=== PATIENT | male | born 1955 | race Native Hawaiian/Other Pacific Islander ===

== ENCOUNTER 2016-08-13 20:04 | Inpatient (IN) | payer BC ==
[2016-08-13] MEDS: MORPHINE SULFATE 2 MG/ML SYRINGE IVP ONE ×2 (20:25→20:36)
[2016-08-13] MEDS ORDERED: ONDANSETRON 4 MG/2 ML VIAL IVP STA (20:26)
[2016-08-13] MEDS ORDERED: ASPIRIN 81 MG CHEW PO STA (20:26)
[2016-08-13] MEDS ORDERED: SODIUM CHLORIDE 0.9% 1,000 ML IV STA (20:27)
[2016-08-13] MEDS ORDERED: ATORVASTATIN 80 MG TAB PO STA (20:27)
[2016-08-13] MEDS: SODIUM CHLORIDE 0.9% 1,000 ML IV STA ×2 (20:28→22:55)
--- NOTE | 2016-08-13 20:32 | ED ---
Chest Pain HPI - General Chief Complaint: Chest Pain Stated Complaint: Chest pain Time Seen by Provider: 08/13/16 20:21 Source: patient Mode of arrival: ambulatory Limitations: no limitations - History of Present Illness Initial Comments: Examined with a chest pain, chest pain started about 45 minutes ago and chest pain he had described as an 8 8/10 or so short winded, nausea no vomiting some cold sweats. He does have a history of diabetes. Denies any headaches no migraines no abdominal pain no frequency urgency dysuria - Related Data Home Medications Medication Instructions Recorded Confirmed No Known Home Medications [No 10/18/14 10/18/14 Known Home Medications] Allergies Allergy/AdvReac Type Severity Reaction Status Date / Time No Known Allergies Allergy Verified 10/18/14 21:33 Review of Systems ROS Statement: Those systems with pertinent positive or pertinent negative responses have been documented in the HPI. ROS Other: All systems not noted in ROS Statement are negative. EKG Findings - EKG Comments: EKG Findings:: EKG is consistent with a STEMI and inferior inferior and the lateral leads, I do not have any old EKG to compare with him I suspect Past Medical History Past Medical History: Diabetes Mellitus History of Any Multi-Drug Resistant Organisms: None Reported Past Surgical History: No Surgical Hx Reported Past Psychological History: No Psychological Hx Reported Smoking Status: Never smoker Past Alcohol Use History: None Reported Past Drug Use History: Marijuana General Exam - General Exam Comments Initial Comments: General: The patient is awake and alert, in no distress, and does not appear acutely ill. His GCS s 15 Skin: Skin is warm and dry and no rashes or lesions are noted. Eye: Pupils are equal, round and reactive to light, extra-ocular movements are intact; there is normal conjunctiva bilaterally. Ears, nose, mouth and throat: There are moist mucous membranes and no oral lesions. Neck: The neck is supple, there is no tenderness or JVD. Cardiovascular: There is a regular rate and rhythm. No murmur, rub or gallop is appreciated. Respiratory: To auscultation bilateral, no wheezing no rhonchi no distress respiratory [place] cast[place] noticed Gastrointestinal: Soft, non-distended, non-tender abdomen without masses or organomegaly noted. There is no rebound or guarding present. Bowel sounds are unremarkable. Back: There is no tenderness to palpation in the midline. There is no obvious deformity. Musculoskeletal: Normal ROM, no tenderness, There is no pedal edema. There is no calf tenderness or swelling. No cords were appreciated. Neurological: CN II-XII intact, Cranial nerves III through XII are intact. There are no obvious motor or sensory deficits. Coordination appears grossly intact. Speech is normal. Psychiatric: Cooperative, appropriate mood & affect, normal judgment. Limitations: no limitations Course Vital Signs 08/13/16 08/13/16 08/13/16 20:13 20:15 20:43 Pulse Rate 80 62 81 Respiratory 18 16 16 Rate Blood Pressure 194/88 204/87 183/83 O2 Sat by Pulse 99 99 99 Oximetry 08/13/16 08/13/16 20:49 20:54 Pulse Rate 80 78 Respiratory 16 16 Rate Blood Pressure 201/86 161/76 O2 Sat by Pulse 100 100 Oximetry EKG was reviewed, it has normal sinus rhythm ventricular rate is 80 SC interval is 126 QRS duration is 108 QT/QTc is 42/42, noticed ST elevation in lead 2 and lead 3 and aVF and then numb ST elevation in lead V5 and V6 Second EKG confirms a STEMI and numb all lead to 3 and aVF and V5 and V6 normal sinus rhythm heart rate is 64 SC interval is 112 QRS duration is 108 QT/QTc is 414/453 Critical Care Time Total Critical Care Time: 45 Critical Care Time: Doesn't have a chest pain started about on a half ago and EKG confirmed a STEMI has a lot of risk factors considering his age and the diabetes doctor staff was contacted to staff advised to do the aspirin and Lipitor his blood pressure was quite high was greater than 200 and 1. labetalol 20 mg given morphine was titrated his oxygen therapy done as well patient was sent to medical lab specialist in a stable condition at 8:59 PM Disposition Clinical Impression: STEMI (ST elevation myocardial infarction) Disposition: ADMITTED IP TO THIS HOSP Referrals: Fransisca Salazar MD [Primary Care Provider] - 1-2 days
[2016-08-13 20:34] LABS: Glucose,Whole Blood 376 mg/dL (75-99)
[2016-08-13 20:36] LABS: Basophils % (A) 1 %; CH 30.5; CHCM 33.6; Eosinophils # (A) 0.1 k/uL (0-0.7); Eosinophils % (A) 2 %; HCT 43.7 % (39.0-53.0); HDW 2.59; HGB 14.5 gm/dL (13.0-17.5); Luc # (Auto) 0.09; Luc % (Auto) 2; Lymphocytes # (A) 1.6 k/uL (1.0-4.8); Lymphocytes % (A) 27 %; MCH 30.3 pg (25.0-35.0); MCHC 33.2 g/dL (31.0-37.0); MCV 91.2 fL (80.0-100.0); Mean Platelet Volume 7.1; Monocytes # (A) 0.4 k/uL (0-1.0); Monocytes % (A) 6 %; Neutrophils # (A) 3.6 k/uL (1.3-7.7); Neutrophils % (A) 63 %; RBC 4.79 m/uL (4.30-5.90); WBC 5.8 k/uL (3.8-10.6); WBC (Perox) 5.78
[2016-08-13] MEDS ORDERED: MORPHINE SULFATE 2 MG/ML SYRINGE IVP ONE (20:36)
[2016-08-13] MEDS ORDERED: LABETALOL SYRINGE 5 MG/ML IVP STA (20:40)
[2016-08-13 20:50] LABS: Partial Thromboplastin Time 24.5 sec (22.0-30.0); Prothrombin Time 10.3 sec (9.0-12.0)
[2016-08-13] MEDS ORDERED: LIDOCAINE 2% INJ 20 MG/ML (20 ML MDV) ONE (20:56)
[2016-08-13] MEDS ORDERED: IV FLUID CONTINUATION 825 ML IV ONE (20:57)
[2016-08-13] MEDS ORDERED: MORPHINE SULFATE 2 MG/ML SYRINGE IV PRN (20:58)
[2016-08-13] MEDS ORDERED: NALOXONE 0.4 MG/ML 1 ML VIAL IV PRN (20:58)
[2016-08-13] MEDS ORDERED: ACETAMINOPHEN TAB 325 MG TAB PO PRN (20:58)
[2016-08-13] MEDS ORDERED: diphenhydrAMINE 50 MG/ML 1 ML VIAL IVP ONE (21:06)
[2016-08-13 21:07] LABS: ALT 43 U/L (21-72); AST 39 U/L (17-59); Alkaline Phosphatase 93 U/L (38-126); Anion Gap 13 mmol/L; Blood Urea Nitrogen 18 mg/dL (9-20); Calcium 9.2 mg/dL (8.4-10.2); Carbon Dioxide 22 mmol/L (22-30); Chloride 107 mmol/L (98-107); Glucose 420 mg/dL (74-99); Magnesium 1.9 mg/dL (1.6-2.3); Non-African American GFR(MDRD) >60 (>60 ml/min/1.73 sqM); Potassium 4.2 mmol/L (3.5-5.1); Sodium 142 mmol/L (137-145); Total Bilirubin 0.4 mg/dL (0.2-1.3)
[2016-08-13] MEDS ORDERED: VERAPAMIL 2.5 MG/ML 2 ML AMP ONE (21:07)
[2016-08-13] MEDS ORDERED: SODIUM CHLORIDE 0.9% (PF) 10 ML VIAL ONE (21:07)
[2016-08-13] MEDS: MIDAZOLAM 2 MG/2 ML VIAL IV ONE ×2 (21:08→21:33)
[2016-08-13] MEDS ORDERED: diphenhydrAMINE 50 MG/ML 1 ML VIAL ONE (21:09)
[2016-08-13] MEDS ORDERED: MIDAZOLAM 2 MG/2 ML VIAL ONE (21:10)
[2016-08-13] MEDS ORDERED: LIDOCAINE 2% INJ 20 MG/ML SQ ONE (21:12)
[2016-08-13] MEDS: VERAPAMIL SYRINGE (5 MG/10 ML) INTRAARTER ONE ×2 (21:14→22:05)
[2016-08-13] MEDS: niCARdipine Syringe (1,000 mcg/10 mL) INTRACORON ONE ×2 (21:17→21:42)
[2016-08-13] MEDS ORDERED: BIVALIRUDIN BOLUS 250 MG/50 ML IV ONE (21:17)
[2016-08-13] MEDS ORDERED: BIVALIRUDIN 250 MG in SODIUM CHLORIDE 0.9% 50 ML IV ONE (21:17)
[2016-08-13 21:24] LABS: Creatine Kinase MB 5.3 ng/mL (0.0-2.4); Troponin I 3.26 ng/mL (0.000-0.034)
[2016-08-13] MEDS: HYDROmorphone 2 MG/ML 1 ML SYRINGE IV ONE ×2 (21:25→21:40)
[2016-08-13] MEDS: NITROGLYCERIN 1000MCG/10ML SYRINGE INTRAARTER ONE ×3 (21:27→21:56)
[2016-08-13] MEDS ORDERED: HYDROmorphone 2 MG/ML 1 ML SYRINGE ONE (21:27)
[2016-08-13] MEDS ORDERED: PRASUGREL 10 MG TAB ONE (21:34)
[2016-08-13] MEDS ORDERED: PRASUGREL 10 MG TAB PO ONE (21:42)
[2016-08-13] MEDS ORDERED: hydrALAZINE HCL 20 MG/ML 1 ML VIAL IV ONE (21:48)
[2016-08-13] MEDS ORDERED: hydrALAZINE HCL 20 MG/ML 1 ML VIAL ONE (21:48)
[2016-08-13] MEDS ORDERED: IOHEXOL 350 MG/ML 100 ML BOTTLE INJ ONE (22:06)
[2016-08-13] MEDS ORDERED: MAG HYDROX/AL HYDROX/SIMETH 30 ML CUP PO PRN (22:16)
[2016-08-13] MEDS ORDERED: RX INFO: IV CONTRAST WAS GIVEN 1 EACH MISC MISCELLANE PRN (22:16)
[2016-08-13] MEDS ORDERED: ZOLPIDEM 5 MG TAB PO PRN (22:16)
[2016-08-13] MEDS ORDERED: NITROGLYCERIN SL TABS 0.4 MG TAB SUBLINGUAL PRN (22:16)
--- NOTE | 2016-08-13 22:27 | P.CRDCN ---
History of Present Illness Consult date: 08/13/16 Chief complaint: Chest discomfort History of present illness: This is a pleasant 60-year-old gentleman with a past medical history significant for diabetes, hypertension, dyslipidemia, presented to the emergency room complaining of chest discomfort. The patient has been experiencing intermittent episodes of chest discomfort over the last 3 days. He describes as burning sensation in the mid of the chest. In the emergency room he was found to be an acute inferior ST elevation myocardial infarction. An emergent heart catheterization was recommended. The catheter showed critical disease involving the mid and distal right coronary artery and the patient underwent successful stenting of both lesions with a good angiographic results and without any complication. Beside that, the patient was found to have severe disease involving the left circumflex and left anterior descending artery. The patient is going to be admitted to the intensive care unit. He would be on dual antiplatelet therapy along with a statin, metoprolol, and lisinopril. I will obtain an echocardiogram to assess the LV function. He will be brought back to undergo a PCI of the left circumflex and left anterior descending artery. Past Medical History Past Medical History: Diabetes Mellitus History of Any Multi-Drug Resistant Organisms: None Reported Past Surgical History: No Surgical Hx Reported Past Psychological History: No Psychological Hx Reported Smoking Status: Never smoker Past Alcohol Use History: None Reported Past Drug Use History: Marijuana Medications and Allergies Home Medications Medication Instructions Recorded Confirmed Type No Known Home Medications [No 10/18/14 10/18/14 History Known Home Medications] Allergies Allergy/AdvReac Type Severity Reaction Status Date / Time No Known Allergies Allergy Verified 10/18/14 21:33 Physical Exam Vitals: Vital Signs Pulse Resp BP Pulse Ox 08/13/16 20:54 78 16 161/76 100 08/13/16 20:49 80 16 201/86 100 08/13/16 20:43 81 16 183/83 99 Intake and Output 08/13/16 08/13/16 08/13/16 06:59 14:59 22:59 Intake Total 340.16 Output Total 650 Balance -309.84 Intake: IV 340.16 Output: Urine 650 - Constitutional General appearance: no acute distress - Respiratory Respiratory: bilateral: CTA, rales - Cardiovascular Rhythm: regular Heart sounds: normal: S1, S2 Results 08/13/16 20:24 08/13/16 20:24 Current Medications Generic Name Dose Route Start Last Admin Trade Name Freq PRN Reason Stop Dose Admin Acetaminophen 650 mg 08/13/16 20:58 Tylenol Tab PO Q4HR PRN Fever and/or Mild Pain Al Hydroxide/Mg Hydroxide 30 ml 08/13/16 22:16 Maalox PO Q4HR PRN Heartburn Aspirin 325 mg 08/14/16 09:00 Aspirin PO DAILY [facility] Atorvastatin Calcium 80 mg 08/14/16 21:00 Lipitor PO HS BEST Sodium Chloride 1,000 mls @ 100 mls/hr 08/13/16 20:22 08/13/16 20:28 Saline 0.9% IV 08/14/16 06:21 100 mls/hr .Q10H STA Administration Sodium Chloride 1,000 mls @ 100 mls/hr 08/13/16 22:30 Saline 0.9% IV 08/14/16 04:31 .Q10H BEST Lisinopril 10 mg 08/14/16 09:00 Zestril PO DAILY [facility] Metoprolol Tartrate 25 mg 08/14/16 09:00 Lopressor PO BID [facility] Miscellaneous Information 1 each 08/13/16 22:16 Rx Info: Iv Contrast Was Given MISCELLANE 08/15/16 22:16 DAILY PRN Per Protocol Morphine Sulfate 2 mg 08/13/16 20:58 Morphine Sulfate (Inj) IV Q2HR PRN Pain Scale 4 to 5 Naloxone HCl 0.2 mg 08/13/16 20:58 Narcan IV Q2M PRN Opioid Reversal Nitroglycerin 0.4 mg 08/13/16 22:16 Nitrostat SUBLINGUAL Q5M PRN Chest Pain Prasugrel 10 mg 08/14/16 21:00 Effient PO DAILY [facility] Zolpidem Tartrate 5 mg 08/13/16 22:16 Ambien PO HS PRN Insomnia Intake and Output 08/13/16 08/13/16 08/13/16 06:59 14:59 22:59 Intake Total 340.16 Output Total 650 Balance -309.84 Intake: IV 340.16 Output: Urine 650 Assessment and Plan Plan: Assessment #[address] elevation myocardial infarction #2 status post PCI of the mid and distal RCA #3 severe residual coronary artery disease involving the LAD and LCx #4 multiple comorbidities including diabetes, hypertension, dyslipidemia Plan #1 dual antiplatelet therapy along with statin and beta liea and ROSANNA inhibitor #2 echocardiogram to assess the LV function #3 ICU admission #4 monitor for arrhythmia #5 follow-up with the patient
[2016-08-13] MEDS ORDERED: SODIUM CHLORIDE 0.9% 1,000 ML IV SCH (22:30)
[2016-08-13 22:32] LABS: Glucose,Whole Blood 288 mg/dL (75-99)
[2016-08-14] MEDS: metFORMIN 500 MG TAB PO SCH ×2 (03:26→08:35)
[2016-08-14 05:03] LABS: Basophils % (A) 0 %; CH 30.3; CHCM 32.8; Eosinophils # (A) 0.1 k/uL (0-0.7); Eosinophils % (A) 1 %; HCT 42.7 % (39.0-53.0); HDW 2.54; HGB 13.7 gm/dL (13.0-17.5); Luc # (Auto) 0.15; Luc % (Auto) 2; Lymphocytes # (A) 1.3 k/uL (1.0-4.8); Lymphocytes % (A) 17 %; MCH 29.8 pg (25.0-35.0); MCHC 32.1 g/dL (31.0-37.0); MCV 92.7 fL (80.0-100.0); Mean Platelet Volume 6.4; Monocytes # (A) 0.5 k/uL (0-1.0); Monocytes % (A) 6 %; Neutrophils # (A) 5.8 k/uL (1.3-7.7); Neutrophils % (A) 74 %; RBC 4.61 m/uL (4.30-5.90); RDW 13.1 % (11.5-15.5); WBC 7.9 k/uL (3.8-10.6); WBC (Perox) 8.45
[2016-08-14 05:18] LABS: Anion Gap 9 mmol/L; Blood Urea Nitrogen 15 mg/dL (9-20); Calcium 9.1 mg/dL (8.4-10.2); Carbon Dioxide 23 mmol/L (22-30); Chloride 108 mmol/L (98-107); Glucose 304 mg/dL (74-99); Non-African American GFR(MDRD) >60 (>60 ml/min/1.73 sqM); Potassium 4.3 mmol/L (3.5-5.1); Sodium 140 mmol/L (137-145)
--- NOTE | 2016-08-14 07:49 | CC ---
DATE OF SERVICE: 08/13/2016 PERFORMING PHYSICIAN: Jean Monroy, Lan Support Specialist. PROCEDURE PERFORMED: 1. Selective right and left coronary angiogram. 2. Successful stenting of the mid right coronary artery using 3.25 x 23 mm Xience JAMIL with a good angiographic results. 3. Successful stenting of the distal right coronary artery using 2.5 x 23 and 2.5 x 8 mm Xience JAMIL with a good angiographic results. INDICATION: This is a pleasant, 60-year-old gentleman with diabetes, hypertension, dyslipidemia presented to the emergency room complaining of chest discomfort and was found to be in acute inferior ST-elevation myocardial infarction. The decision was made toward an emergent heart catheterization. APPROACH: Right radial artery. COMPLICATIONS: None. LEVEL OF SEDATION: Moderate. PROCEDURE DESCRIPTION: After obtaining an informed consent, the patient was brought to the cardiac parking lot laborer. The right radial artery was cannulated using micropuncture technique and the micropuncture wire passed easily. Then I placed 6 Uzbek sheath in the right radial artery. Subsequently, I did selective right coronary angiogram using JR4 guiding catheter. After I intervened on the RCA. I did selective left coronary angiogram using JL 3.5 catheters. I did also left heart catheterization using JR4 guiding catheter, which flowed into the left ventricle then I did pullback. The procedure was completed without any complication. SELECTIVE CORONARY ANGIOGRAM: 1. The right coronary artery is a large-caliber vessel and is a super dominant vessel. The proximal RCA appeared to have mild disease only. The mid RCA has a long tubular lesion, seems to be in the range of 90%. The RCA distally has another long tubular lesion in the range of 80%. 2. The left main is a long left main but angiographically normal. It bifurcates into the left circumflex, ramus intermedius, and left anterior descending artery. 3. The left circumflex is a large-caliber vessel and is a nondominant vessel. The proximal left circumflex appeared to have mild disease only. The mid left circumflex appeared to be angiographically normal and gives rises into the first obtuse marginal branch, which has a lesion that seems to be in the range of 80%. 4. The ramus intermedius is a moderate-caliber vessel with mild disease in the proximal portion. 5. The left anterior descending artery: The proximal LAD has a long severe lesion, appears to be in the range of 70%. The mid LAD is angiographically normally. The LAD distally appeared to have another tight lesion in the range of 70%. CONCLUSION: 1. Acute inferior ST elevation myocardial infarction. 2. Critical disease involving the mid and distal right coronary artery. 3. Successful stenting of the mid and distal right coronary artery using Xience JAMIL with good angiographic results. 4. Severe coronary artery disease involving the left circumflex and left anterior descending artery. POSTPROCEDURE MANAGEMENT: The patient will be brought back to undergo PCI of the LAD and left circumflex.
[2016-08-14] MEDS: METOPROLOL TARTRATE 25 MG TAB PO SCH ×2 (08:35→21:00)
[2016-08-14] MEDS: ASPIRIN 325 MG TAB PO SCH (08:35)
[2016-08-14] MEDS: LISINOPRIL 10 MG TAB PO SCH (08:35)
[2016-08-14] MEDS ORDERED: Magnesium Replacement Protocol 1 EACH MISC MISCELLANE PRN (09:15)
--- NOTE | 2016-08-14 09:21 | P.PN ---
Subjective Principal diagnosis: Inferior ST elevation TN This is a pleasant 60-year-old gentleman with a past medical history significant for diabetes, hypertension, dyslipidemia, presented to the hospital with a chest discomfort and was diagnosed with acute inferior ST patient TN. He underwent an emergent heart catheterization and successful stenting of the mid and distal RCA with a good angiographic results. Please note that the patient still have severe residual coronary artery disease involving the proximal LAD, distal LAD, and mid left circumflex. From the cardiovascular standpoint overview, he denies having any chest pain or discomfort or difficulty breathing. He continues to be in a sinus mechanism with controlled heart rate. He continues to be on dual antiplatelet therapy, statin, beta leia, and ROSANNA inhibitor. I will continue the current medical treatment. Keep the patient in the ICU for additional 24 hours. Follow-up on the echocardiogram to assess the LV function. Follow-up with the patient. Objective - Vital Signs Vital signs: Vital Signs Temp 97.5 F L 08/14/16 08:00 Pulse 75 08/14/16 09:00 Resp 12 08/14/16 09:00 BP 129/59 08/14/16 09:00 Pulse Ox 97 08/14/16 09:00 Intake & Output 08/13/16 08/14/16 08/14/16 18:59 06:59 18:59 Intake Total 1140.16 100 Output Total 1575 100 Balance -434.84 0 Weight 82.2 kg Intake: IV 1140.16 100 Sodium Chloride 0.9% 1, 800 100 000 ml @ 100 mls/hr IV . Q10H BEST Rx#:[id number] Output: Urine 1575 100 Other: Voiding Method Urinal Urinal - Constitutional General appearance: Present: no acute distress - Respiratory Respiratory: bilateral: CTA - Cardiovascular Rhythm: regular Heart sounds: normal: S1, S2 - Labs CBC & Chem 7: 08/14/16 04:28 08/14/16 04:28 Labs: Abnormal Lab Results - Last 24 Hours (Table) 08/13/16 08/14/16 Range/Units 22:30 04:28 Chloride 108 H (98-107) mmol/L Creatinine 0.60 L (0.66-1.25) mg/dL Glucose 304 H (74-99) mg/dL POC Glucose (mg/dL) 288 H (75-99) mg/dL Assessment and Plan Plan: Assessment #[address] elevation myocardial infarction #2 status post PCI of the mid and distal RCA #3 severe residual coronary artery disease involving the LAD and LCx #4 multiple comorbidities including diabetes, hypertension, dyslipidemia Plan #1 dual antiplatelet therapy along with statin and beta leia and ROSANNA inhibitor #2 echocardiogram to assess the LV function #3 ICU admission #4 monitor for arrhythmia #5 follow-up with the patient
[2016-08-14] MEDS: MAGNESIUM SULFATE-D5W PMX 1 GM in DEXTROSE/WATER 1 100ML.BAG IVPB SCH ×2 (09:54→12:42)
[2016-08-14 10:06] LABS: Glucose,Whole Blood 356 mg/dL (75-99)
--- NOTE | 2016-08-14 10:30 | ECHOF ---
Referral Reason:stemi MEASUREMENTS -------- HEIGHT: 172.7 cm WEIGHT: 82.1 kg BP: IVSd: 1.4 cm (0.6 - 1.1) LVIDd: 5.0 cm (3.9 - 5.3) LVPWd: 1.5 cm (0.6 - 1.1) IVSs: 2.2 cm LVIDs: 3.7 cm LVPWs: 1.8 cm Ao Diam: 4.6 cm (2.0 - 3.7) AV Cusp: 2.3 cm (1.5 - 2.6) LA Diam: 3.6 cm (2.7 - 3.8) MV E Lane: 0.61 m/s MV DecT: [address]: 0.76 m/s MV E/A Ratio: 0.80 RAP: 5.00 mmHg RVSP: 7.97 mmHg FINDINGS -------- Sinus rhythm with extra systolic beats. This was a technically difficult study with suboptimal views. There is mild concentric left ventricular hypertrophy. Overall left ventricular systolic function is mildly impaired with, an EF between 45 - 50 %. Mid inferior LV wall motion is hypokinetic. Apical inferior LV wall motion is hypokinetic. The right ventricle is normal in size and function. The left atrium is normal in size. The right atrium is normal in size. 1.5mg of Definity was utilized for enhancement of images The aortic valve was not well visualized. There is trace mitral regurgitation. Trace tricuspid regurgitation present. The right ventricular systolic pressure, as measured by Doppler, is 7.97mmHg. Pulmonic valve appears structurally normal. CONCLUSIONS -------- 1. Sinus rhythm with extra systolic beats. 2. The aortic valve was not well visualized. 3. There is trace mitral regurgitation. 4. Trace tricuspid regurgitation present. 5. The right ventricular systolic pressure, as measured by Doppler, is 7.97mmHg. 6. Pulmonic valve appears structurally normal. 7. This was a technically difficult study with suboptimal views. 8. There is mild concentric left ventricular hypertrophy. 9. Overall left ventricular systolic function is mildly impaired with, an EF between 45 - 50 %. 10. Apical inferior LV wall motion is hypokinetic. 11. The right ventricle is normal in size and function. 12. The left atrium is normal in size. 13. The right atrium is normal in size. 14. 1.5mg of Definity was utilized for enhancement of images PLUMBING DRAFTER: Shani Gonzalez RDCS
[2016-08-14 12:43] LABS: Glucose,Whole Blood 317 mg/dL (75-99)
[2016-08-14] MEDS ORDERED: metFORMIN 500 MG TAB PO SCH (13:00)
--- NOTE | 2016-08-14 14:57 | P.CNPUL ---
History of Present Illness Consult date: 08/14/16 Requesting physician: James Beard Reason for consult: other (ICU management, acute inferior ST elevation myocardial infarction) Chief complaint: Chest pain History of present illness: This is a 60-year-old white male, known history of diabetes, hypertension, hyperlipidemia, patient presented to the ER with acute chest pain. Described the pain as intermittent episodes of chest discomfort in the substernal area over the last 3 days. He was also having some burning sensation in the mid chest. EKG upon presentation showed ST elevation myocardial infarction, noted in the inferior leads. Emergent cardiac catheterization was done, and there was evidence of critical disease involving the mid and distal right coronary artery. Patient underwent primary angioplasty, stenting of both lesions in the RCA. Patient was also noted to have severe disease involving the left circumflex and LAD. I believe he is scheduled to undergo another angioplasty in the next 24 hours. Patient was admitted to the ICU, and were asked to see him on consultation. Presently the patient is pain-free, denies any shortness of breath, no cough, no wheezing. Patient does not smoke, and he does not drink any alcohol. I believe the manager lpn is planning PCI of the left circumflex and left anterior descending artery. Review of Systems 12 point review of systems were obtained, please refer to pertinent positives and negatives in HPI Past Medical History Past Medical History: Diabetes Mellitus History of Any Multi-Drug Resistant Organisms: None Reported Past Surgical History: No Surgical Hx Reported Past Psychological History: No Psychological Hx Reported Smoking Status: Never smoker Past Alcohol Use History: None Reported Past Drug Use History: Marijuana - Past Family History Mother Family Medical History: Diabetes Mellitus, Hypertension, Myocardial Infarction ( [place]) Additional Family Medical History / Comment(s): 5/7 children have diabetes Sister(s) Family Medical History: Diabetes Mellitus, Renal Disease Brother(s) Family Medical History: Coronary Artery Disease (CAD), Diabetes Mellitus Medications and Allergies Home Medications Medication Instructions Recorded Confirmed Type No Known Home Medications [No 10/18/14 08/14/16 History Known Home Medications] Allergies Allergy/AdvReac Type Severity Reaction Status Date / Time No Known Allergies Allergy Verified 08/14/16 08:25 Physical Exam Vitals: Vital Signs Temp Pulse Pulse Resp BP BP Pulse Ox 08/14/16 14:00 72 21 120/60 98 08/14/16 13:00 82 10 L 110/66 97 08/14/16 12:00 97.8 F 64 10 L 118/60 97 08/14/16 11:00 64 22 113/60 97 08/14/16 10:00 74 23 125/58 98 08/14/16 09:00 75 12 129/59 97 08/14/16 08:00 97.5 F L 75 76 13 142/68 99 08/14/16 06:00 66 17 137/62 100 08/14/16 05:50 65 15 137/62 99 08/14/16 05:40 72 24 137/62 99 08/14/16 05:30 59 L 19 134/64 99 08/14/16 05:20 76 16 134/64 99 08/14/16 05:10 75 11 L 134/64 99 08/14/16 05:00 74 10 L 172/71 99 08/14/16 04:50 76 14 172/71 99 08/14/16 04:40 75 16 172/71 99 08/14/16 04:30 89 15 137/67 99 08/14/16 04:20 65 14 137/67 99 08/14/16 04:10 75 17 137/67 99 08/14/16 04:00 70 76 14 111/57 99 08/14/16 03:50 98.2 F 79 17 111/57 99 08/14/16 03:40 70 16 111/57 99 08/14/16 03:30 85 16 121/63 99 08/14/16 03:20 80 20 121/63 99 08/14/16 03:10 71 11 L 121/63 99 08/14/16 03:00 82 15 116/61 99 08/14/16 02:50 69 15 116/61 99 08/14/16 02:40 70 17 116/61 99 08/14/16 02:30 80 13 115/60 99 08/14/16 02:20 75 14 115/60 99 08/14/16 02:10 88 25 H 115/60 99 08/14/16 02:01 97.6 F 76 15 121/63 100 08/14/16 02:00 86 15 111/56 99 08/14/16 01:50 80 17 111/56 99 08/14/16 01:40 83 16 111/56 99 08/14/16 01:30 88 14 116/62 99 08/14/16 01:20 86 19 116/62 99 08/14/16 01:10 100 26 H 116/62 99 08/14/16 01:01 97.6 F 85 16 116/62 100 08/14/16 01:00 91 17 120/62 100 08/14/16 00:50 94 14 120/62 100 08/14/16 00:40 94 16 120/62 99 08/14/16 00:30 88 17 136/69 100 08/14/16 00:20 84 22 136/69 08/14/16 00:10 78 17 136/69 99 08/14/16 00:01 97.6 F 79 16 111/56 99 08/14/16 00:00 84 79 16 156/71 99 08/13/16 23:54 87 16 156/71 99 08/13/16 23:50 83 12 156/71 99 08/13/16 23:40 87 14 156/71 99 08/13/16 23:31 97.8 F 20 152/75 100 08/13/16 23:30 85 16 152/75 100 08/13/16 23:20 76 17 152/75 100 08/13/16 23:10 91 18 160/76 100 08/13/16 23:01 97.7 F 16 156/71 99 08/13/16 23:00 81 14 146/65 99 08/13/16 22:50 98 24 146/65 99 08/13/16 22:46 97.8 F 12 146/65 99 08/13/16 22:40 97.8 F 89 16 153/73 99 08/13/16 21:22 97.6 F 20 160/76 100 08/13/16 20:54 78 16 161/76 100 08/13/16 20:49 80 16 201/86 100 08/13/16 20:43 81 16 183/83 99 Intake and Output 08/13/16 08/14/16 08/14/16 22:59 06:59 14:59 Intake Total 340.16 800 310 Output Total 650 925 450 Balance -309.84 -125 -140 Intake: IV 340.16 800 310 Magnesium Sulfate-D5w Pmx 200 1 gm In Dextrose/Water 1 100ml.bag @ 100 mls/hr IVPB Q1H BEST Rx#: [id number] Sodium Chloride 0.9% 1, 800 110 000 ml @ 100 mls/hr IV . Q10H BEST Rx#:[id number] Output: Urine 650 925 450 Other: Voiding Method Urinal Urinal Urinal Weight 82.2 kg 82.2 kg Physical Exam: Revealed a 60-year-old white male in no distress HEENT:[Neck is supple.] [No neck masses.] [No thyromegaly.] [No JVD.] Chest: [Clear throughout, no crackles, no rhonchi, no wheezes.] Cardiac Exam: [Normal S1 and S2, no S3 gallop, no murmur.] Abdomen: [Soft, nontender, no megaly, no rebound, no guarding, normal bowel sounds.] Extremities: [No clubbing, no edema, no cyanosis.] Neurological Exam: [No focal neurologic deficit.] Results - Laboratory Findings CBC and BMP: 08/14/16 04:28 08/14/16 04:28 PT/INR, D-dimer PT 10.3 sec (9.0-12.0) 08/13/16 20:24 INR 1.0 (<1.1) 08/13/16 20:24 Abnormal lab findings: Abnormal Labs 08/13/16 08/14/16 08/14/16 22:30 04:28 10:05 Chloride 108 H Creatinine 0.60 L Glucose 304 H POC Glucose (mg/dL) 288 H 356 H 08/14/16 12:42 Chloride Creatinine Glucose POC Glucose (mg/dL) 317 H - Diagnostic Findings Additional studies: Echocardiogram showed slightly impaired LV function, EF is 45-50%. Assessment and Plan Plan: Impression: [address] elevation myocardial infarction, status post PCI of the mid and distal RCA. 2 severe residual coronary artery disease involving LAD and left circumflex. 3 history of multiple comorbidities including diabetes, hypertension, and dyslipidemia. Recommendation: Agree with the present treatment plan including do well and antiplatelet therapy, statins, beta blockers and chapis inhibitors. Continue present supportive care measures, and we'll continue to follow. Time with Patient: Greater than 30
[2016-08-14] MEDS: PIOGLITAZONE 30 MG TAB PO SCH (15:14)
--- NOTE | 2016-08-14 16:46 | HP ---
DATE OF ADMISSION: 08/13/2016 PRESENTING COMPLAINT: Chest pain. HISTORY OF PRESENTING COMPLAINT: This is a 60-year-old patient who follows with Dr. Fransisca Salazar who has a known history of history diabetes mellitus, type 2; was on oral hypoglycemic. Patient moved to a new place and his ( ) were all locked up; he never took his medications. Patient presented with central chest pressure, nausea, lightheaded. No radiation. Lasted for a good 45 minutes. Patient presented with acute ST-elevation myocardial infarction in the inferior lead, was taken to the cardiac greenhouse laborer by Dr. Monroy. Patient had successful stenting to mid and distal RCA; also found to have severe disease involving the left circumflex and the left LAD. Sugars have been running high. Admitted to the ICU. REVIEW OF SYSTEMS: CONSTITUTIONAL: Tired. HEENT: None. RESPIRATORY: None. CARDIOVASCULAR: As above. GASTROINTESTINAL: None. GENITOURINARY: None. MUSCULOSKELETAL: None. DERMATOLOGICAL: None. HEMATOLOGICAL: None. LYMPHATICS: None. PSYCHIATRY: None. NEUROLOGICAL: None. PAST MEDICAL HISTORY: Diabetes mellitus, type 2. PAST SURGICAL HISTORY: None. SOCIAL HISTORY: Does not smoke or drink alcohol. 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 . FAMILY HISTORY: Diabetes, hypertension, myocardial infarction. HOME MEDICATIONS: None. ALLERGIES: NONE. PHYSICAL EXAMINATION: VITAL SIGNS ON PRESENTATION: Temperature 97.6, pulse 20, blood pressure 160/76, pulse ox 100% on 2 L. GENERAL APPEARANCE: Will built. Sitting up in a chair. Not in distress. EYES: Pupils equal. Conjunctivae normal. HEENT: External appearance of nose and ears normal. Oral cavity normal. NECK: JVD not raised. Mass not palpable. RESPIRATORY: Effort normal. Lungs are clear. CARDIOVASCULAR: First and second sounds normal. No edema. ABDOMEN: Soft, nontender. Liver and spleen not palpable. LYMPHATIC: No lymph node palpable in neck or axillae. PSYCHIATRY: Alert and oriented x3. Mood and affect normal. NEUROLOGICAL: Pupils equal. Cranial nerves grossly intact. Power and sensation grossly intact. DERMATOLOGICAL: Patient has bruising around both hip areas just below the hip line, not in the renal angle, with no tenderness. INVESTIGATIONS: White count 5.8, hemoglobin 14.5, potassium 4.2. BUN and creatinine are normal. Sugar is 240. Troponin 3.2. EKG shows ST-elevation. ASSESSMENT: 1. Acute ST-elevation myocardial infarction in inferior wall. 2. Emergent cardiac catheterization showing severe triple-vessel coronary artery disease. 3. Diabetes mellitus, type 2, chronic. Patient has not been taking his medications. Uncontrolled. 4. Essential hypertension. PLAN: Patient underwent emergent cardiac catheterization. Will currently start the patient on Actos. Also will start the patient on Lantus tonight. Down the road Glucophage will be added. Also patient was put on a diabetic and a cardiac diet. Care was discussed with the patient, including the importance of taking his medications.
[2016-08-14 17:01] LABS: Glucose,Whole Blood 224 mg/dL (75-99)
[2016-08-14 20:11] LABS: Glucose,Whole Blood 371 mg/dL (75-99)
[2016-08-14] MEDS: ATORVASTATIN 80 MG TAB PO SCH (21:00)
[2016-08-14] MEDS: PRASUGREL 10 MG TAB PO SCH (21:00)
[2016-08-14] MEDS: INSULIN GLARGINE 100 UNIT/ML 10 ML VIAL SQ SCH (21:00)
[2016-08-15 02:07] LABS: Glucose,Whole Blood 173 mg/dL (75-99)
[2016-08-15 04:56] LABS: CH 30.4; CHCM 33.7; HCT 40.9 % (39.0-53.0); HDW 2.58; HGB 13.4 gm/dL (13.0-17.5); MCH 29.7 pg (25.0-35.0); MCHC 32.7 g/dL (31.0-37.0); MCV 90.9 fL (80.0-100.0); Mean Platelet Volume 7.3; RDW 13.2 % (11.5-15.5); WBC 8.5 k/uL (3.8-10.6)
[2016-08-15 05:06] LABS: Anion Gap 8 mmol/L; Blood Urea Nitrogen 17 mg/dL (9-20); Carbon Dioxide 24 mmol/L (22-30); Chloride 107 mmol/L (98-107); Glucose 137 mg/dL (74-99); Non-African American GFR(MDRD) >60 (>60 ml/min/1.73 sqM); Phosphorous 3.2 mg/dL (2.5-4.5); Potassium 4.2 mmol/L (3.5-5.1); Sodium 139 mmol/L (137-145)
[2016-08-15 07:47] LABS: Glucose,Whole Blood 140 mg/dL (75-99)
[2016-08-15] MEDS: METOPROLOL TARTRATE 25 MG TAB PO SCH ×2 (08:00→20:44)
[2016-08-15] MEDS: PIOGLITAZONE 30 MG TAB PO SCH (08:00)
[2016-08-15] MEDS: ASPIRIN 325 MG TAB PO SCH (08:00)
[2016-08-15] MEDS: PRASUGREL 10 MG TAB PO SCH (08:00)
[2016-08-15] MEDS: LISINOPRIL 10 MG TAB PO SCH (08:00)
[2016-08-15 11:38] LABS: Glucose,Whole Blood 214 mg/dL (75-99)
--- NOTE | 2016-08-15 11:57 | P.PN ---
Subjective Principal diagnosis: Acute inferior ST elevation myocardial infarction This is a 60-year-old white male, known history of diabetes, hypertension, hyperlipidemia, patient presented to the ER with acute chest pain. Described the pain as intermittent episodes of chest discomfort in the substernal area over the last 3 days. He was also having some burning sensation in the mid chest. EKG upon presentation showed ST elevation myocardial infarction, noted in the inferior leads. Emergent cardiac catheterization was done, and there was evidence of critical disease involving the mid and distal right coronary artery. Patient underwent primary angioplasty, stenting of both lesions in the RCA. Patient was also noted to have severe disease involving the left circumflex and LAD. I believe he is scheduled to undergo another angioplasty in the next 24 hours. Patient was admitted to the ICU, and were asked to see him on consultation. Presently the patient is pain-free, denies any shortness of breath, no cough, no wheezing. Patient does not smoke, and he does not drink any alcohol. I believe the middleware systems architect is planning PCI of the left circumflex and left anterior descending artery. Patient was reevaluated today on 08/15/2016, he seems to be doing well, asymptomatic, awaiting to go back for repeat cardiac catheterization and possible PCI by Dr. Huerta. No major issues overnight, patient is denies any shortness of breath, no chest pain, no fever no chills no hemoptysis. Objective - Vital Signs Vital signs: Vital Signs Temp 98 F 08/15/16 08:00 Pulse 81 08/15/16 10:00 Resp 16 08/15/16 10:00 BP 99/48 08/15/16 10:00 Pulse Ox 98 08/15/16 10:00 Intake & Output 08/14/16 08/15/16 08/15/16 18:59 06:59 18:59 Intake Total 310 325 250 Output Total 700 625 200 Balance -390 -300 50 Weight 83.4 kg Intake: IV 310 Magnesium Sulfate-D5w Pmx 200 1 gm In Dextrose/Water 1 100ml.bag @ 100 mls/hr IVPB Q1H BEST Rx#: [id number] Sodium Chloride 0.9% 1, 110 000 ml @ 100 mls/hr IV . Q10H BEST Rx#:[id number] Oral 325 250 Output: Urine 700 625 200 Other: Voiding Method Urinal Urinal Urinal # Voids 0 0 - Exam Physical Exam HEENT:[Neck is supple.] [No neck masses.] [No thyromegaly.] [No JVD.] Chest: [Clear throughout, no crackles, no rhonchi, no wheezes.] Cardiac Exam: [Normal S1 and S2, no S3 gallop, no murmur.] Abdomen: [Soft, nontender, no megaly, no rebound, no guarding, normal bowel sounds.] Extremities: [No clubbing, no edema, no cyanosis.] Neurological Exam: [No focal neurologic deficit.] - Labs CBC & Chem 7: 08/15/16 04:27 08/15/16 04:27 Labs: Abnormal Lab Results - Last 24 Hours (Table) 08/14/16 08/14/16 08/14/16 Range/Units 12:42 16:58 20:09 Creatinine (0.66-1.25) mg/dL Glucose (74-99) mg/dL POC Glucose (mg/dL) 317 H 224 H 371 H (75-99) mg/dL 08/15/16 08/15/16 08/15/16 Range/Units 02:05 04:27 07:37 Creatinine 0.60 L (0.66-1.25) mg/dL Glucose 137 H (74-99) mg/dL POC Glucose (mg/dL) 173 H 140 H (75-99) mg/dL 08/15/16 Range/Units 11:36 Creatinine (0.66-1.25) mg/dL Glucose (74-99) mg/dL POC Glucose (mg/dL) 214 H (75-99) mg/dL Assessment and Plan Plan: Impression: [address] elevation myocardial infarction, status post PCI of the mid and distal RCA. 2 severe residual coronary artery disease involving LAD and left circumflex. 3 history of multiple comorbidities including diabetes, hypertension, and dyslipidemia. Recommendation: Agree with the present treatment plan including do well and antiplatelet therapy, statins, beta blockers and chapis inhibitors. Continue present supportive care measures, and we'll continue to follow. Consider transferring to monitor bed on selective after his cardiac catheterization and PCI. Time with Patient: Less than 30
--- NOTE | 2016-08-15 13:04 | P.PN ---
Subjective Principal diagnosis: Inferior ST elevation MT This is a pleasant 60-year-old gentleman with a past medical history significant for diabetes, hypertension, dyslipidemia, presented to the hospital with a chest discomfort and was diagnosed with acute inferior ST patient MT. He underwent an emergent heart catheterization and successful stenting of the mid and distal RCA with a good angiographic results. Please note that the patient still have severe residual coronary artery disease involving the proximal LAD, distal LAD, and mid left circumflex. From the cardiovascular standpoint overview, he denies having any chest pain or discomfort or difficulty breathing. He continues to be in a sinus mechanism with controlled heart rate. He continues to be on dual antiplatelet therapy, statin, beta leia, and ROSANNA inhibitor. I will continue the current medical treatment. The patient can be transferred to the selective unit. I will schedule the patient to undergo PCI of the LAD and left circumflex tomorrow. Objective - Vital Signs Vital signs: Vital Signs Temp 98 F 08/15/16 08:00 Pulse 81 08/15/16 10:00 Resp 16 08/15/16 10:00 BP 99/48 08/15/16 10:00 Pulse Ox 98 08/15/16 10:00 Intake & Output 08/14/16 08/15/16 08/15/16 18:59 06:59 18:59 Intake Total 310 325 250 Output Total 700 625 200 Balance -390 -300 50 Weight 83.4 kg Intake: IV 310 Magnesium Sulfate-D5w Pmx 200 1 gm In Dextrose/Water 1 100ml.bag @ 100 mls/hr IVPB Q1H BEST Rx#: [id number] Sodium Chloride 0.9% 1, 110 000 ml @ 100 mls/hr IV . Q10H BEST Rx#:[id number] Oral 325 250 Output: Urine 700 625 200 Other: Voiding Method Urinal Urinal Urinal # Voids 0 0 - Constitutional General appearance: Present: no acute distress - Respiratory Respiratory: bilateral: CTA - Cardiovascular Rhythm: regular Heart sounds: normal: S1, S2 - Labs CBC & Chem 7: 08/15/16 04:27 08/15/16 04:27 Labs: Abnormal Lab Results - Last 24 Hours (Table) 08/14/16 08/14/16 08/15/16 Range/Units 16:58 20:09 02:05 Creatinine (0.66-1.25) mg/dL Glucose (74-99) mg/dL POC Glucose (mg/dL) 224 H 371 H 173 H (75-99) mg/dL 08/15/16 08/15/16 08/15/16 Range/Units 04:27 07:37 11:36 Creatinine 0.60 L (0.66-1.25) mg/dL Glucose 137 H (74-99) mg/dL POC Glucose (mg/dL) 140 H 214 H (75-99) mg/dL Assessment and Plan Plan: Assessment #[address] elevation myocardial infarction #2 status post PCI of the mid and distal RCA #3 severe residual coronary artery disease involving the LAD and LCx #4 multiple comorbidities including diabetes, hypertension, dyslipidemia Plan #1 dual antiplatelet therapy along with statin and beta leia and ROSANNA inhibitor # #2 PCI of the LAD and left circumflex tomorrow
[2016-08-15 17:11] LABS: Glucose,Whole Blood 234 mg/dL (75-99)
--- NOTE | 2016-08-15 17:31 | PN ---
DATE OF SERVICE: 08/15/2016 PRESENTING COMPLAINT: Chest pain. INTERVAL HISTORY: This is a patient with acute ST elevation myocardial infarction, found to have disease and triple vessel, initially intervention done to the right coronary artery. Dr. Monroy is going to take the patient back to the OR. Patient is having some intermittent chest pain. Otherwise, comfortable. Sitting up in a chair. Review systems done for constitutional, cardiovascular, GI, pulmonary; relevant findings above. Current medications are reviewed. On examination, temperature 98.1, pulse 84, respirations 16, blood pressure 91/50, pulse ox 96% on room air. GENERAL APPEARANCE: Sitting up in a chair, comfortable. EYES: Pupils equal. Conjunctivae normal. NECK: JVD not raised. Mass not palpable. RESPIRATORY: Effort normal. Lungs are clear. CARDIOVASCULAR: First and second sounds normal. No edema. ABDOMEN: Soft, nontender. Liver and spleen not palpable. PSYCHIATRY: Alert and oriented times three. Mood and affect normal. INVESTIGATIONS: Potassium 4.2. BUN and creatinine are normal. Accu-Cheks 137 and 140. ASSESSMENT: 1. Acute ST elevation myocardial infarction, inferior wall followed by emergent cardiac catheterization showing severe triple vessel disease with intervention initially to the right coronary artery. 2. Diabetes mellitus type 2, chronic, uncontrolled. 3. Essential hypertension. PLAN: Patient is on Actos and Glucophage. Lantus was also added. The patient may need to go back to the OR for further intervention. In the meantime, we will continue current medication and treatment plan.
[2016-08-15] MEDS: INSULIN LISPRO (humaLOG) 300 UNIT/3 ML VIAL SQ SCH ×2 (18:37→20:45)
[2016-08-15 20:34] LABS: Glucose,Whole Blood 283 mg/dL (75-99)
[2016-08-15] MEDS: INSULIN GLARGINE 100 UNIT/ML 10 ML VIAL SQ SCH (20:44)
[2016-08-15] MEDS: ATORVASTATIN 80 MG TAB PO SCH (20:44)
[2016-08-15] MEDS: SODIUM CHLORIDE 0.9% 1,000 ML IV SCH (23:36)
[2016-08-16 01:49] LABS: Glucose,Whole Blood 137 mg/dL (75-99)
[2016-08-16 05:59] LABS: Glucose,Whole Blood 130 mg/dL (75-99)
[2016-08-16 06:31] LABS: CH 30.5; CHCM 33.5; HCT 40.6 % (39.0-53.0); HDW 2.56; HGB 13.1 gm/dL (13.0-17.5); MCH 29.4 pg (25.0-35.0); MCHC 32.2 g/dL (31.0-37.0); MCV 91.4 fL (80.0-100.0); Mean Platelet Volume 7.1; RBC 4.44 m/uL (4.30-5.90)
[2016-08-16 06:42] LABS: Anion Gap 10 mmol/L; Blood Urea Nitrogen 20 mg/dL (9-20); Calcium 8.8 mg/dL (8.4-10.2); Carbon Dioxide 23 mmol/L (22-30); Chloride 109 mmol/L (98-107); Glucose 114 mg/dL (74-99); Non-African American GFR(MDRD) >60 (>60 ml/min/1.73 sqM); Phosphorous 3.3 mg/dL (2.5-4.5); Potassium 4.4 mmol/L (3.5-5.1); Sodium 142 mmol/L (137-145)
[2016-08-16] MEDS: ASPIRIN 325 MG TAB PO SCH (06:43)
[2016-08-16] MEDS: LISINOPRIL 10 MG TAB PO SCH (06:43)
[2016-08-16] MEDS: METOPROLOL TARTRATE 25 MG TAB PO SCH ×2 (06:44→21:30)
[2016-08-16] MEDS: INSULIN LISPRO (humaLOG) 300 UNIT/3 ML VIAL SQ SCH ×6 (06:44→21:37)
[2016-08-16] MEDS: PRASUGREL 10 MG TAB PO SCH (06:44)
[2016-08-16 08:23] LABS: Hemoglobin A1C 7.9 % (4.2-6.1)
[2016-08-16] MEDS ORDERED: LIDOCAINE 2% INJ 20 MG/ML (20 ML MDV) ONE (09:44)
[2016-08-16] MEDS ORDERED: SODIUM CHLORIDE 0.9% (PF) 10 ML VIAL ONE ×2 (10:03→12:56)
[2016-08-16] MEDS ORDERED: VERAPAMIL 2.5 MG/ML 2 ML AMP ONE (10:03)
[2016-08-16] MEDS ORDERED: MIDAZOLAM 2 MG/2 ML VIAL ONE ×2 (10:06→13:21)
[2016-08-16] MEDS ORDERED: IV FLUID CONTINUATION 1,000 ML IV ONE (10:15)
[2016-08-16] MEDS ORDERED: MIDAZOLAM 2 MG/2 ML VIAL IVP ONE ×2 (10:23→13:23)
[2016-08-16] MEDS ORDERED: LIDOCAINE 2% INJ 20 MG/ML SQ ONE (10:35)
[2016-08-16] MEDS ORDERED: BIVALIRUDIN BOLUS 250 MG/50 ML IV ONE (10:37)
[2016-08-16] MEDS ORDERED: BIVALIRUDIN 250 MG in SODIUM CHLORIDE 0.9% 50 ML IV ONE ×3 (10:38→13:13)
[2016-08-16] MEDS ORDERED: HYDROmorphone 2 MG/ML 1 ML SYRINGE ONE (11:52)
[2016-08-16] MEDS: HYDROmorphone 2 MG/ML 1 ML SYRINGE IVP ONE ×3 (11:54→13:17)
[2016-08-16] MEDS: NITROGLYCERIN 1000MCG/10ML SYRINGE INTRACORON ONE ×5 (12:09→13:53)
[2016-08-16] MEDS ORDERED: niCARdipine 25 MG/10 ML VIAL ONE (12:56)
[2016-08-16] MEDS ORDERED: niCARdipine Syringe (1,000 mcg/10 mL) INTRACORON ONE (13:53)
[2016-08-16] MEDS ORDERED: NITROGLYCERIN SL TABS 0.4 MG TAB SUBLINGUAL PRN (14:05)
[2016-08-16] MEDS ORDERED: ZOLPIDEM 5 MG TAB PO PRN (14:05)
[2016-08-16] MEDS ORDERED: RX INFO: IV CONTRAST WAS GIVEN 1 EACH MISC MISCELLANE PRN (14:05)
[2016-08-16] MEDS ORDERED: MAG HYDROX/AL HYDROX/SIMETH 30 ML CUP PO PRN (14:05)
[2016-08-16] MEDS ORDERED: TIROFIBAN 12.5MG-250ML NS 250 ML IV ONE ×2 (14:12)
[2016-08-16] MEDS ORDERED: IOHEXOL 300 MG/ML 50 ML BOTTLE INJ ONE (14:13)
[2016-08-16] MEDS ORDERED: TIROFIBAN BOLUS 12.5MG/250 ML BAG IV ONE (14:14)
[2016-08-16] MEDS ORDERED: SODIUM CHLORIDE 0.9% 1,000 ML IV SCH (14:15)
[2016-08-16 17:01] LABS: Glucose,Whole Blood 73 mg/dL (75-99)
[2016-08-16] MEDS: PIOGLITAZONE 30 MG TAB PO SCH (17:50)
[2016-08-16] MEDS: ATORVASTATIN 80 MG TAB PO SCH (21:30)
[2016-08-16] MEDS: TIROFIBAN 12.5MG-250ML NS 250 ML IV ONE (21:31)
[2016-08-16] MEDS: SODIUM CHLORIDE 0.9% 1,000 ML IV SCH (21:31)
[2016-08-16] MEDS: INSULIN GLARGINE 100 UNIT/ML 10 ML VIAL SQ SCH (21:36)
[2016-08-16 21:43] LABS: Glucose,Whole Blood 244 mg/dL (75-99)
--- NOTE | 2016-08-16 23:10 | PTCA ---
DATE OF SERVICE: 08/16/2016 PERFORMING PHYSICIAN: Jean Monroy M.D., manager business systems. PROCEDURES PERFORMED: 1. Successful stenting of the ostial and proximal left anterior descending artery using 2.75 x 38 mm Xience drug-eluting stent, with good angiographic results. 2. Successful stenting of the distal left circumflex coronary artery using 2.25 x 12 mm Promus Premier drug-eluting stent, with good angiographic results. 3. Successful stenting of the ostial and proximal left circumflex coronary artery using 2.5 x 12 and 2.5 x 8 mm Promus Premier drug-eluting stents, with excellent angiographic results. COMPLICATIONS: Thrombus formation involving the mid left circumflex coronary artery between the stents in the proximal and distal portions. INDICATION: This is a pleasant 60-year-old gentleman who presented to the hospital 2 days ago with acute inferior ST-elevation myocardial infarction and underwent stenting of the right coronary artery. He was found to have severe disease involving the LAD and left circumflex coronary arteries. He was brought today to undergo stenting of both arteries. DURATION OF THE PROCEDURE: 4.5 hours. APPROACH: Right common femoral artery. PROCEDURE DESCRIPTION: After obtaining informed consent, the patient was brought to the cardiac shop laborer. The right common femoral artery was cannulated using micropuncture technique. The micropuncture wire passed easily. Then I placed a 6 Pashto sheath in the right common femoral artery. At that point anticoagulation was initiated using Angiomax. Subsequently I engaged the left main coronary artery using an XB35 LAD guiding catheter. At that point I wired the left anterior descending artery using a Whisper wire. I did predilatation of the lesion in the proximal LAD using a 2.0 x 20 mm balloon. After that I deployed a 2.75 x 38 mm Xience JAMIL, where the stent was positioned under fluoroscopic guidance and deployed under its nominal pressure. After that I post dilated the lesion using a 2.5 x 15 mm noncompliant balloon which was inflated under 16 atmospheres for 20 seconds. The following angiogram showed excellent angiographic results. For the lesion in the left circumflex, I wired the left circumflex using a Whisper wire. I did balloon the left circumflex in the distal portion using a 2.0 x 12 mm balloon which was inflated under its nominal pressure. I tried to advance a stent to the distal left circumflex, but the stent would not make the turn to the left circumflex from the left main in view of the angulation of the left circumflex coming from the left main. At that point I used a jatin wire which was a run-through wire. I tried again to advance the stent over both wires, the Whisper and the run-through, and I was unable. At that point I decided to pre-dilate lesion in the proximal left circumflex. So I did that using a 2.5 x 12 mm balloon which was inflated under its nominal pressure x2. At that point I was able to advance the stent to the distal left circumflex, where I was able to deploy a 2.25 x 12 mm stent in the distal left circumflex coronary artery. The following angiogram showed good angiographic results. Then I decided to stent the proximal left circumflex, so I was able to advance a 2.5 x 12 and then a 2.5 x 8 mm stent to the proximal left circumflex, where both stents were deployed under their nominal pressure with a 2 mm overlap between the 2 stents. The following angiogram showed what seemed to be a lesion involving the mid left circumflex. That segment was normal before. I did balloon that area using a 2.25 x 12 mm balloon, but the lesion continued to be tight. I tried to advance the stent to that area using multiple wires and multiple stents, and I was unable. At that point I decided to stop. The final angiogram showed what seems to be a clot involving the mid left circumflex coronary artery. CONCLUSION: 1. Successful stenting of the ostium and proximal left anterior descending artery using a drug-eluting stent with good angiographic results. 2. Successful stenting of the proximal and distal left circumflex coronary artery using drug-eluting stents, with good angiographic results. 3. Thrombus formation involving the mid left circumflex coronary artery. POST-PROCEDURE MANAGEMENT: 1. Dual antiplatelet therapy. 2. ( ) inhibitors. 3. ICU admission. 4. Followup with the patient.
[2016-08-17] MEDS: SODIUM CHLORIDE 0.9% 1,000 ML IV SCH (02:18)
[2016-08-17] MEDS: TIROFIBAN 12.5MG-250ML NS 250 ML IV ONE (02:19)
[2016-08-17 05:07] LABS: CH 30.5; CHCM 33.5; HCT 37.1 % (39.0-53.0); HDW 2.58; HGB 12.1 gm/dL (13.0-17.5); MCH 29.7 pg (25.0-35.0); MCHC 32.5 g/dL (31.0-37.0); MCV 91.5 fL (80.0-100.0); Mean Platelet Volume 7.2; RBC 4.06 m/uL (4.30-5.90); WBC 7.8 k/uL (3.8-10.6)
[2016-08-17 05:30] LABS: Anion Gap 9 mmol/L; Blood Urea Nitrogen 19 mg/dL (9-20); Calcium 8.5 mg/dL (8.4-10.2); Carbon Dioxide 21 mmol/L (22-30); Chloride 109 mmol/L (98-107); Glucose 170 mg/dL (74-99); Magnesium 1.8 mg/dL (1.6-2.3); Non-African American GFR(MDRD) >60 (>60 ml/min/1.73 sqM); Phosphorous 3.6 mg/dL (2.5-4.5); Potassium 4.2 mmol/L (3.5-5.1); Sodium 139 mmol/L (137-145)
[2016-08-17] MEDS: MAGNESIUM SULFATE-D5W PMX 1 GM in DEXTROSE/WATER 1 100ML.BAG IVPB SCH ×2 (06:30→07:47)
[2016-08-17 07:20] LABS: Glucose,Whole Blood 91 mg/dL (75-99)
[2016-08-17 07:32] LABS: Glucose,Whole Blood 133 mg/dL (75-99)
[2016-08-17] MEDS: INSULIN LISPRO (humaLOG) 300 UNIT/3 ML VIAL SQ SCH ×7 (07:48→20:19)
[2016-08-17] MEDS: LISINOPRIL 10 MG TAB PO SCH (07:53)
[2016-08-17] MEDS: ASPIRIN 325 MG TAB PO SCH (07:53)
[2016-08-17] MEDS: METOPROLOL TARTRATE 25 MG TAB PO SCH ×2 (07:54→20:16)
[2016-08-17] MEDS: PIOGLITAZONE 30 MG TAB PO SCH (07:55)
[2016-08-17] MEDS: PRASUGREL 10 MG TAB PO SCH (09:56)
[2016-08-17 12:19] LABS: Glucose,Whole Blood 266 mg/dL (75-99)
[2016-08-17 17:39] LABS: Glucose,Whole Blood 110 mg/dL (75-99)
[2016-08-17] MEDS: ATORVASTATIN 80 MG TAB PO SCH (20:16)
[2016-08-17] MEDS: INSULIN GLARGINE 100 UNIT/ML 10 ML VIAL SQ SCH (20:19)
[2016-08-17 20:21] LABS: Glucose,Whole Blood 134 mg/dL (75-99)
[2016-08-18 04:46] LABS: Basophils % (A) 0 %; CH 30.3; CHCM 33.4; Eosinophils # (A) 0.2 k/uL (0-0.7); Eosinophils % (A) 2 %; HCT 38.6 % (39.0-53.0); HDW 2.54; HGB 12.4 gm/dL (13.0-17.5); Luc # (Auto) 0.15; Luc % (Auto) 2; Lymphocytes # (A) 1.3 k/uL (1.0-4.8); Lymphocytes % (A) 17 %; MCH 29.3 pg (25.0-35.0); MCHC 32.1 g/dL (31.0-37.0); MCV 91.1 fL (80.0-100.0); Mean Platelet Volume 6.5; Monocytes # (A) 0.6 k/uL (0-1.0); Monocytes % (A) 7 %; Neutrophils # (A) 5.9 k/uL (1.3-7.7); Neutrophils % (A) 73 %; RBC 4.24 m/uL (4.30-5.90); RDW 12.9 % (11.5-15.5); WBC 8.1 k/uL (3.8-10.6); WBC (Perox) 8.33
[2016-08-18 04:55] LABS: Anion Gap 7 mmol/L; Blood Urea Nitrogen 18 mg/dL (9-20); Calcium 8.7 mg/dL (8.4-10.2); Carbon Dioxide 26 mmol/L (22-30); Chloride 108 mmol/L (98-107); Glucose 95 mg/dL (74-99); Magnesium 1.8 mg/dL (1.6-2.3); Non-African American GFR(MDRD) >60 (>60 ml/min/1.73 sqM); Phosphorous 3.3 mg/dL (2.5-4.5); Potassium 4.2 mmol/L (3.5-5.1); Sodium 141 mmol/L (137-145)
[2016-08-18 07:24] LABS: Glucose,Whole Blood 87 mg/dL (75-99)
--- NOTE | 2016-08-18 08:32 | PN ---
DATE OF SERVICE: 08/17/2016 PRESENTING COMPLAINT: Chest pain. INTERVAL HISTORY: This patient had an acute ST elevation myocardial infarction. The patient was taken back to the collaborative physician yesterday and further intervention then. ( ) otherwise fine. No further chest pain. Review of systems done for constitutional, cardiovascular, GI, pulmonary; relevant findings as above. Current medications are reviewed. On examination, pulse ox 90s, respirations 17, blood pressure 109/59, pulse ox 96% on room air. GENERAL APPEARANCE: Lying in bed, comfortable. EYES: Pupils equal. Conjunctivae normal. NECK: JVD not raised. Mass not palpable. RESPIRATORY: Effort normal. Lungs are clear. CARDIOVASCULAR: First and second sounds normal. No edema. ABDOMEN: Soft, nontender. Liver and spleen not palpable. PSYCHIATRIC: Alert and oriented x3. Mood and affect normal. INVESTIGATIONS: White count 7.8, hemoglobin 12.1, potassium 4.2. Accu-Cheks are noted. ASSESSMENT: 1. Acute ST elevation infarction in the inferior wall, followed by emergent catheterization showing triple vessel disease. 2. Diabetes mellitus type 2, chronic, uncontrolled on presentation. 3. Essential hypertension. PLAN: Continue current medication and treatment plan. Patient is on Glucotrol and Actos. By the time the patient is discharged the patient should be able to go on to start metformin. Care was discussed with the patient.
[2016-08-18] MEDS: ASPIRIN 325 MG TAB PO SCH (10:02)
[2016-08-18] MEDS: LISINOPRIL 10 MG TAB PO SCH (10:03)
[2016-08-18] MEDS: PIOGLITAZONE 30 MG TAB PO SCH (10:04)
[2016-08-18] MEDS: METOPROLOL TARTRATE 25 MG TAB PO SCH (10:04)
[2016-08-18] MEDS: PRASUGREL 10 MG TAB PO SCH (10:05)
[2016-08-18] MEDS ORDERED: METOPROLOL TARTRATE 50 MG TAB PO SCH (10:57)
--- NOTE | 2016-08-18 10:59 | P.PN ---
Subjective Principal diagnosis: Inferior ST elevation LA This is a pleasant 60-year-old gentleman with a past medical history significant for diabetes, hypertension, dyslipidemia, presented to the hospital with a chest discomfort and was diagnosed with acute inferior ST patient LA. He underwent an emergent heart catheterization and successful stenting of the mid and distal RCA with a good angiographic results. Please note that the patient still have severe residual coronary artery disease involving the proximal LAD, distal LAD, and mid left circumflex. The patient underwent successful stenting of the LAD and also successful stenting of the left circumflex. Stenting of the left circumflex was complicated by thrombus formation in the mid left circumflex in between the 2 stents. I'll follow-up with the patient today, he continues to be asymptomatic and hemodynamically stable. I will keep the patient for additional 24 hours. He might be able to be discharged home tomorrow. Objective - Vital Signs Vital signs: Vital Signs Temp 97.9 F 08/18/16 08:00 Pulse 90 08/18/16 10:00 Resp 13 08/18/16 10:00 BP 116/61 08/18/16 10:00 Pulse Ox 98 08/18/16 08:00 Intake & Output 08/17/16 08/18/16 08/18/16 18:59 06:59 18:59 Intake Total 655.2 100 Output Total 700 1500 400 Balance -44.8 -1400 -400 Weight 80.9 kg 80 kg Intake: IV 240 0 Sodium Chloride 0.9% 1, 240 0 000 ml @ 100 mls/hr IV . Q10H BEST Rx#:[id number] Intake, IV Titration 15.2 0 Amount Magnesium Sulfate-D5w Pmx 0 1 gm In Dextrose/Water 1 100ml.bag @ 100 mls/hr IVPB Q1H BEST Rx#: [id number] Tirofiban 12.5MG-250Ml Ns 15.2 250 ml @ 0.15 MCG/KG/MIN 15.156 mls/hr IV . [id number] ONE Rx#:[id number] Oral 400 100 Output: Urine 700 1500 400 Other: Voiding Method Urinal Urinal Urinal # Voids 1 1 # Bowel Movements 1 - Constitutional General appearance: Present: no acute distress - Respiratory Respiratory: bilateral: CTA - Cardiovascular Rhythm: regular Heart sounds: normal: S1, S2 - Labs CBC & Chem 7: 08/18/16 04:23 08/18/16 04:23 Labs: Abnormal Lab Results - Last 24 Hours (Table) 08/17/16 08/17/16 08/17/16 Range/Units 12:16 17:36 20:18 RBC (4.30-5.90) m/uL Hgb (13.0-17.5) gm/dL Hct (39.0-53.0) % Chloride (98-107) mmol/L Creatinine (0.66-1.25) mg/dL POC Glucose (mg/dL) 266 H 110 H 134 H (75-99) mg/dL 08/18/16 08/18/16 Range/Units 04:23 04:23 RBC 4.24 L (4.30-5.90) m/uL Hgb 12.4 L (13.0-17.5) gm/dL Hct 38.6 L (39.0-53.0) % Chloride 108 H (98-107) mmol/L Creatinine 0.64 L (0.66-1.25) mg/dL POC Glucose (mg/dL) (75-99) mg/dL Assessment and Plan Plan: Assessment #[address] elevation myocardial infarction #2 status post PCI of the mid and distal RCA #3 severe residual coronary artery disease involving the LAD and LCx #4 multiple comorbidities including diabetes, hypertension, dyslipidemia Plan #1 dual antiplatelet therapy along with statin and beta leia and ROSANNA inhibitor # #2 increase the dose of metoprolol.
[2016-08-18] MEDS ORDERED: METOPROLOL TARTRATE 25 MG TAB PO ONE (11:00)
[2016-08-18] MEDS: INSULIN LISPRO (humaLOG) 300 UNIT/3 ML VIAL SQ SCH ×7 (11:21→20:43)
--- NOTE | 2016-08-18 11:49 | PN ---
DATE OF SERVICE: August 17, 2016 BRIEF HISTORY: This is a pleasant 60-year-old gentleman with known diabetes, hypertension, dyslipidemia, presented to the emergency room a few days ago experiencing chest discomfort and he was diagnosed with acute inferior ST-elevation myocardial infarction. He underwent a heart catheterization and underwent successful stenting of the right coronary artery with good angiographic results. He was found to have severe disease involving the ostial and proximal LAD as well as the proximal and distal left circumflex coronary artery. Yesterday, he underwent successful stenting of both the LAD and left circumflex. By the end of the procedure, the patient was noticed to have thrombus involving the mid left circumflex coronary artery. He was initiated on IIb/IIIa inhibitors and he was admitted to the intensive care unit. On followup with him today, he continues to be asymptomatic and denies having any chest pain or discomfort or difficulty in breathing. Hemodynamically he continues to be stable and continues to maintain normal sinus mechanism. PHYSICAL EXAMINATION: GENERAL APPEARANCE: He does not look in any pain or distress. Vitals showed temp of 98.1, heart rate 86, respiratory rate 24, blood pressure is 116/62. Cardiovascular shows regular rate and rhythm. Respiratory shows clear breathing sounds bilaterally. EXTREMITIES: No pedal edema was noted. Current medications include the followin. Aspirin 325 mg p.o. daily. 2. Atorvastatin 80 mg p.o. q.h.s. 3. Insulin. 4. Lisinopril 10 mg p.o. daily. 5. Metoprolol 25 mg p.o. b.i.d. 6. Prasugrel 10 mg p.o. daily. 7. Glipizide 2.5 mg p.o. daily. Diagnostic workup showed WBC of 7.8, hemoglobin 12.1 and platelet count of 234. Sodium is 139, potassium 4.2 and his creatinine is 0.50 with GFR more than 60. ASSESSMENT: 1. Severe triple-vessel coronary artery disease. 2. Acute inferior ST elevation myocardial infarction and status post stenting of the right coronary artery. 3. Severe coronary artery disease, status post stenting of the left anterior descending artery and left circumflex. 4. Mildly ( ) LV function with an ejection fraction between 45% to 50%. 5. Diabetes type 2. 6. Systemic hypertension. 7. Dyslipidemia. PLAN: 1. Continue patient on the current medical treatment. 2. Continue monitoring the patient for additional 24 hours. 3. The patient can be transferred to the selective unit. 4. Will continue following up with him.
[2016-08-18 12:40] LABS: Glucose,Whole Blood 107 mg/dL (75-99)
[2016-08-18 15:44] VITALS: BMI 26.8
--- NOTE | 2016-08-18 17:05 | PN ---
DATE OF SERVICE: 08/18/2016 PRESENTING COMPLAINT: The patient with acute ST elevation myocardial infarction has had coronary intervention, currently in the ICU. Does feel tired. The patient's sister at the bedside. Review of systems done for constitutional, cardiovascular, GI, pulmonary; relevant findings as above. Current medications were reviewed. On examination, temperature 97.9, pulse 79, respiration 18, blood pressure 107/61, pulse ox 98% on room air. GENERAL APPEARANCE: Lying in bed, comfortable. Eyes pupils equal. Conjunctivae normal. NECK: JVD not raised. Mass not palpable. RESPIRATORY: Effort normal. Lungs are clear. CARDIOVASCULAR: First and second sounds normal. No edema. ABDOMEN: Soft, nontender. Liver and not palpable. PSYCHIATRY: Alert and oriented x3. Mood and affect normal. INVESTIGATIONS: White count 8.1. Accu-Cheks are noted. 95, 87, 107. ASSESSMENT: 1. Acute exacerbation myocardial infarction in the inferior wall followed by ( ) cardiac cath showing triple vessel disease. 2. Diabetes mellitus type 2 chronic uncontrolled on presentation. 3. Essential hypertension. PLAN: Continue current medication and treatment plan. Sugar was started a bit low. Will discontinue patient's Lantus and we will start the patient on metformin in the morning from this evening.
[2016-08-18 17:07] LABS: Glucose,Whole Blood 94 mg/dL (75-99)
[2016-08-18] MEDS: metFORMIN 500 MG TAB PO SCH (18:55)
[2016-08-18] MEDS: METOPROLOL TARTRATE 50 MG TAB PO SCH (20:42)
[2016-08-18] MEDS: ATORVASTATIN 80 MG TAB PO SCH (20:43)
[2016-08-18 20:45] LABS: Glucose,Whole Blood 201 mg/dL (75-99)
[2016-08-19] MEDS: ASPIRIN 325 MG TAB PO SCH (07:36)
[2016-08-19] MEDS: PRASUGREL 10 MG TAB PO SCH (07:36)
[2016-08-19] MEDS: metFORMIN 500 MG TAB PO SCH (07:36)
[2016-08-19] MEDS: LISINOPRIL 10 MG TAB PO SCH (07:36)
[2016-08-19] MEDS: METOPROLOL TARTRATE 50 MG TAB PO SCH (07:36)
[2016-08-19] MEDS: PIOGLITAZONE 30 MG TAB PO SCH (07:36)
[2016-08-19] MEDS: INSULIN LISPRO (humaLOG) 300 UNIT/3 ML VIAL SQ SCH ×2 (07:38→12:30)
[2016-08-19 07:54] LABS: Glucose,Whole Blood 94 mg/dL (75-99)
[2016-08-19 11:54] LABS: Glucose,Whole Blood 127 mg/dL (75-99)
[2016-08-19 15:32] VITALS: BP 99/61; PULSE 67; RESP 18; TEMP 98.3
--- NOTE | 2016-08-20 15:35 | DS ---
DATE OF ADMISSION: 08/13/2016 DATE OF DISCHARGE: 08/19/2016 FINAL DIAGNOSES: 1. Acute myocardial infarction of the inferior wall, ST-elevation type. 2. Diabetes mellitus type 2, chronically uncontrolled. 3. Essential hypertension. CONSULTATION: Dr. Monroy. PROCEDURE: Cardiac catheterization with intervention. HOSPITAL COURSE: This patient has not been taking diabetic medications because he had moved to a new place, presented with acute ST-elevation myocardial infarction. The patient was taken to [facility] and interventions on two different times, one mid-RCA was stented and also LAD was stented with a drug-eluting stent, more detail on Dr. Monroy notes. Patient doing better at the time of discharge. Care was discussed with him. On exam, lungs are clear. CARDIOVASCULAR: First and second seconds are normal. DISCHARGE MEDICATIONS: 1. Metformin 1000 mg p.o. b.i.d. 2. Aspirin 325 p.o. daily. 3. Lipitor 80 mg q.h.s. 4. Zestril 10 mg p.o. daily. 5. Lopressor 50 mg p.o. b.i.d. 6. Nitrostat 0.4 sublingual q.5 p.r.n. 7. Actos 30 mg p.o. daily. 8. Effient 10 mg p.o. daily. Follow up with Dr. Monroy in 1 week; follow up with Dr. Fransisca Salazar in 3 days.
== END 2016-08-19 16:00 | disposition home or self-care (01) | DRG 246 ==
LOC: EC 20:04 → 6ICU 20:32 → 6SEL 08-15 17:24 → 6ICU 08-16 14:37 → 5MS5E 08-18 23:06
PROVIDERS: ADMIT Hospitalist; ATTEND Hospitalist
PROC: 4A023N7 Measurement of Cardiac Sampling and Pressure, Left Heart, Percutaneous Approach (ICD-10-PCS; 2016-08-13)
PROC: B2111ZZ Fluoroscopy of Multiple Coronary Arteries using Low Osmolar Contrast (ICD-10-PCS; 2016-08-13)
PROC: 027035Z Dilation of Coronary Artery, One Artery with Two Drug-eluting Intraluminal Devices, Percutaneous Approach (ICD-10-PCS; principal; 2016-08-13 20:49)
PROC: 027236Z Dilation of Coronary Artery, Three Arteries with Three Drug-eluting Intraluminal Devices, Percutaneous Approach (ICD-10-PCS; 2016-08-16 10:00)
DX: I21.19 ST elevation (STEMI) myocardial infarction involving other coronary artery of inferior wall (principal); E11.65 Type 2 diabetes mellitus with hyperglycemia; I10 Essential (primary) hypertension; E78.5 Hyperlipidemia, unspecified; I25.10 Atherosclerotic heart disease of native coronary artery without angina pectoris; I24.0 Acute coronary thrombosis not resulting in myocardial infarction; Z82.49 Family history of ischemic heart disease and other diseases of the circulatory system
CPT/HCPCS: 36415; 80048; 80053; 82550; 82553; 83036; 83735; 84100; 84484; 85025; 85027; 85610; 85730; 93005; 93306; 93454; 96374; 96375; 99291

== ENCOUNTER 2016-11-23 11:56 | Emergency (ER) | payer BC ==
--- NOTE | 2016-11-23 12:33 | ED ---
Lower Extremity Injury HPI - General Chief Complaint: Extremity Injury, Lower Stated Complaint: left knee swelling Source: patient Mode of arrival: wheelchair Limitations: no limitations - History of Present Illness Initial Comments: Patient is a 60-year-old male who presents for evaluation for left knee swelling and pain since Sunday. Past medical history as below. Patient stated this started after he heard "a pop" in his left knee while he was laying in bed. He denies any trauma, sudden twisting motion to causes pain. He is able to walk on it on Sunday but has become increasingly painful with limited range of motion. He lost his balance today and kind of fell. He denies any head trauma or loss of consciousness. He has no history of a DVT or pulmonary embolism. No fevers at home. No overlying redness to the left knee. No history of surgical procedures to the left knee. He is currently on aspirin and Effient secondary to a STEMI that he had earlier this year. Denies headaches, URI symptoms, shortness breath, cough, chest pain, nausea or vomiting , diarrhea, abdominal pain, pain or burning with urination. - Related Data Home Medications Medication Instructions Recorded Confirmed metFORMIN HCL 1,000 mg PO BID 08/18/16 11/23/16 Previous Rx's Medication Instructions Recorded Aspirin 325 mg PO DAILY #0 tab 08/19/16 Atorvastatin [Lipitor] 80 mg PO HS #30 tab 08/19/16 Lisinopril [Zestril] 10 mg PO DAILY #30 tab 08/19/16 Metoprolol Tartrate [Lopressor] 50 mg PO BID #60 tab 08/19/16 Nitroglycerin Sl Tabs [Nitrostat] 0.4 mg SUBLINGUAL Q5M PRN #25 tab 08/19/16 Pioglitazone [Actos] 30 mg PO DAILY #30 tab 08/19/16 Prasugrel [Effient] 10 mg PO DAILY #30 tab 08/19/16 HYDROcodone/APAP 5-325MG [[place] 1 tab PO Q6HR PRN #10 tab 11/23/16 5-325] Allergies Allergy/AdvReac Type Severity Reaction Status Date / Time No Known Allergies Allergy Verified 11/23/16 12:46 Review of Systems ROS Statement: Those systems with pertinent positive or pertinent negative responses have been documented in the HPI. ROS Other: All systems not noted in ROS Statement are negative. Past Medical History Past Medical History: Diabetes Mellitus History of Any Multi-Drug Resistant Organisms: None Reported Past Surgical History: No Surgical Hx Reported Past Psychological History: No Psychological Hx Reported Smoking Status: Never smoker Past Alcohol Use History: None Reported Past Drug Use History: None Reported, Marijuana - Past Family History Mother Family Medical History: Diabetes Mellitus, Hypertension, Myocardial Infarction ( [place]) Additional Family Medical History / Comment(s): 5/7 children have diabetes Sister(s) Family Medical History: Diabetes Mellitus, Renal Disease Brother(s) Family Medical History: Coronary Artery Disease (CAD), Diabetes Mellitus General Exam Limitations: no limitations General appearance: alert, in no apparent distress, other (No distress while sitting in a wheelchair.) Head exam: Present: atraumatic, normocephalic, normal inspection Eye exam: Present: normal appearance, PERRL, EOMI. Absent: scleral icterus, conjunctival injection, periorbital swelling ENT exam: Present: normal exam, mucous membranes moist Neck exam: Present: normal inspection. Absent: tenderness, meningismus, lymphadenopathy Respiratory exam: Present: normal lung sounds bilaterally. Absent: respiratory distress, wheezes, rales, rhonchi, stridor Cardiovascular Exam: Present: regular rate, normal rhythm, normal heart sounds. Absent: systolic murmur, diastolic murmur, rubs, gallop, clicks GI/Abdominal exam: Present: soft, normal bowel sounds. Absent: distended, tenderness, guarding, rebound, rigid Extremities exam: Present: normal capillary refill, joint swelling, other (The left knee appears grossly swollen. It is not warm to the touch. He has limited range of motion with the left knee and flexion and extension. There is some swelling to the superior/medial aspect of the left knee. No pain with palpation of the left calf. Full range of motion of the left hip and the left ankle. No pain with palpation of the left ankle or left hip. All pulses are strong and intact to the left distal extremity.). Absent: tenderness, pedal edema, calf tenderness Back exam: Present: normal inspection Neurological exam: Present: alert, oriented X3, CN II-XII intact Psychiatric exam: Present: normal affect, normal mood Skin exam: Present: warm, dry, intact, normal color. Absent: rash Course Vital Signs 11/23/16 11/23/16 12:10 14:22 Temperature 99.4 F 97.1 F L Pulse Rate 74 70 Respiratory 18 16 Rate Blood Pressure 119/60 114/59 O2 Sat by Pulse 99 100 Oximetry Medical Decision Making - Medical Decision Making Patient presents for evaluation for left knee pain that is been worsening over the last 3 days. Denies any trauma or any clear mechanism to suggest a ligamentous injury. It is not warm to the touch. I doubt a spontaneous bleed or an infection at this time as his physical exam findings are not consistent. We will order a venous duplex to rule out a DVT and plain films to rule out any acute fractures/dislocation. Not requesting pain medications at this time. 1330: Reviewed plain films. No acute fracture or dislocation. Mild effusion. Peripheral vascular disease. Awaiting US. 1415: Reviewed venous duplex. No acute DVT. I discussed the findings with the patient. Again I doubt an infectious etiology at this time as there is no increased warmth to the knee and no overlying cellulitis. I also doubt spontaneous hemorrhage to the left knee as well for the above reasons. He can bear weight on the left leg. Differential includes arthritis versus gout versus bursitis. We'll discharge with 10, 5 mg [place]. Provided orthopedic surgery for follow-up. We will call and make an appointment today. Elevate the leg. Tylenol as needed for pain. No NSAIDs due to recent cardiac event. I discussed specific signs and symptoms on when to return to the emergency department for further evaluation. Comfortable discharge home and will follow- up. Disposition Clinical Impression: Left knee pain Disposition: HOME SELF-CARE Condition: Good Instructions: Knee Pain (ED) Prescriptions: HYDROcodone/APAP 5-325MG [[place] 5-325] 1 tab PO Q6HR PRN #10 tab PRN Reason: Pain Referrals: Fransisca Salazar MD [Primary Care Provider] - 1-2 days Jean Marcano MD [Medical Doctor] - 1-2 days
[2016-11-23] MEDS ORDERED: HYDROcodone/APAP 5-325MG 1 EACH TAB PO STA (12:49)
--- NOTE | 2016-11-23 12:52 | XR ---
EXAMINATION TYPE: XR knee complete LT DATE OF EXAM: 11/23/2016 12:46 PM COMPARISON: NONE HISTORY: Pain felt pop while walking TECHNIQUE: 3 view left knee FINDINGS: There is narrowing of the knee lateral compartment joint space. Medial femoral condylar and tibial plateau spurring is present. Small to moderate joint effusion is present. Vascular calcificat ion is present. Posterior patellar spurring is present. Patellofemoral joint space may be narrowed. IMPRESSION: 1. Small to moderate joint effusion. 2. Degenerative joint changes.
--- NOTE | 2016-11-23 13:55 | US ---
EXAMINATION TYPE: US venous doppler duplex LE LT DATE OF EXAM: 11/23/2016 1:34 PM COMPARISON: NONE CLINICAL HISTORY: Pain. SIDE PERFORMED: Left TECHNIQUE: The lower extremity deep venous system is examined utilizing real time linear array sonog natividad with graded compression, doppler sonography and color-flow sonography. VESSELS IMAGED: External Iliac Vein (EIV) Common Femoral Vein Deep Femoral Vein Greater Saphenous Vein * Femoral Vein Popliteal Vein Small Saphenous Vein * not seen Proximal Calf Veins (* superficial vessels) Left Leg: Negative for DVT IMPRESSION: 1. Left lower extremity negative for deep venous thrombosis. 2. No popliteal cyst evident.
[2016-11-23 14:24] VITALS: BP 114/59; PULSE 70; RESP 16; TEMP 97.1
== END 2016-11-23 14:22 | disposition home or self-care (01) ==
LOC: EC 11:56
DX: M25.562 Pain in left knee (principal); M25.462 Effusion, left knee; E11.9 Type 2 diabetes mellitus without complications; Z79.84 Long term (current) use of oral hypoglycemic drugs
CPT/HCPCS: 99284

== ENCOUNTER 2018-02-04 07:01 | Day surgery (SDC) | payer BC, OTHER ==
[2018-01-29 10:47] VITALS: BMI 28.8
[~2018-02-04 07:01] MED LIST: LACTATED RINGERS 1,000 ML IV SCH
[2018-02-04 07:25] VITALS: TEMP 97.9
[2018-02-04 07:32] LABS: Glucose,Whole Blood 95 mg/dL (75-99)
[2018-02-04] MEDS ORDERED: MIDAZOLAM 2 MG/2 ML VIAL ONE (07:44)
[2018-02-04] MEDS ORDERED: PROPOFOL 10 MG/ML 20 ML VIAL IV ONE (07:44)
[2018-02-04] MEDS ORDERED: LIDOCAINE 1% INJ 10MG/ML (20 ML MDV) ONE (07:44)
--- NOTE | 2018-02-04 07:52 | P.GSHP ---
History of Present Illness H&P Date: 02/04/18 Chief Complaint: Screening colonoscopy This is a 62-year-old male referred from Dr. Gonsales. Patient presents today for screening colonoscopy. He denies any significant GI complaints. Past Medical History Past Medical History: Diabetes Mellitus, Hyperlipidemia, Hypertension, Myocardial Infarction ([place]) Last Myocardial Infarction Date:: 2016 History of Any Multi-Drug Resistant Organisms: None Reported Past Surgical History: Heart Catheterization With Stent Past Anesthesia/Blood Transfusion Reactions: No Reported Reaction Date of Last Stent Placement:: 2016 Smoking Status: Never smoker - Past Family History Mother Family Medical History: Diabetes Mellitus, Hypertension, Myocardial Infarction ( [place]) Additional Family Medical History / Comment(s): 5/7 children have diabetes Sister(s) Family Medical History: Diabetes Mellitus, Renal Disease Brother(s) Family Medical History: Coronary Artery Disease (CAD), Diabetes Mellitus Medications and Allergies Home Medications Medication Instructions Recorded Confirmed Type metFORMIN HCL 1,000 mg PO BID 08/18/16 02/04/18 History Aspirin 325 mg PO DAILY #0 tab 08/19/16 02/04/18 Rx Atorvastatin [Lipitor] 80 mg PO HS #30 tab 08/19/16 02/04/18 Rx Lisinopril [Zestril] 10 mg PO DAILY #30 tab 08/19/16 02/04/18 Rx Metoprolol Tartrate [Lopressor] 50 mg PO BID #60 tab 08/19/16 02/04/18 Rx Nitroglycerin Sl Tabs [Nitrostat] 0.4 mg SUBLINGUAL Q5M PRN #25 tab 08/19/1604/16 Rx Pioglitazone [Actos] 30 mg PO DAILY #30 tab 08/19/16 02/04/18 Rx HYDROcodone/APAP 5-325MG [[place] 1 tab PO Q6HR PRN #10 tab 11/23/16 02/04/18 Rx 5-325] Allergies Allergy/AdvReac Type Severity Reaction Status Date / Time No Known Allergies Allergy Verified 01/29/18 10:39 Surgical - Exam Vital Signs Temp Pulse Resp BP Pulse Ox 97.9 F 80 14 163/78 99 02/04/18 07:24 02/04/18 07:24 02/04/18 07:24 02/04/18 07:24 02/04/18 07:24 - General well developed, no distress - Eyes PERRL - ENT normal pinna - Neck no masses - Respiratory normal expansion - Cardiovascular Rhythm: regular - Abdomen Abdomen: soft, non tender Assessment and Plan Assessment: We'll perform screening colonoscopy.
--- NOTE | 2018-02-04 08:03 | P.OP ---
Date of Procedure: 02/04/18 Preoperative Diagnosis: Screening colonoscopy Postoperative Diagnosis: Diverticulosis Procedure(s) Performed: Colonoscopy Anesthesia: MAC Surgeon: Len Finney Pathology: none sent Condition: stable Disposition: PACU Description of Procedure: The patient's placed on the endoscopy table in the lateral position. He received IV sedation. Digital rectal exam was performed which revealed no abnormalities. The flexible colonoscope was then placed patient anus passed throughout the entire colon. The ileocecal valve was visualized. The cecum, ascending and transverse colon appeared normal. The scope was brought back the descending; was mild diverticulosis. The scope was brought back the rectum and this appeared normal. Scope was withdrawn for patient.
[2018-02-04 08:06] VITALS: RESP 16
[2018-02-04 08:32] VITALS: BP 135/74; PULSE 51
== END 2018-02-04 08:55 | disposition home or self-care (01) ==
LOC: ORWHC2ENDO 07:01
PROVIDERS: ATTEND Surgery
DX: Z12.11 Encounter for screening for malignant neoplasm of colon (principal); K57.30 Diverticulosis of large intestine without perforation or abscess without bleeding; E11.9 Type 2 diabetes mellitus without complications; I25.10 Atherosclerotic heart disease of native coronary artery without angina pectoris; I10 Essential (primary) hypertension; E78.5 Hyperlipidemia, unspecified; I25.2 Old myocardial infarction; Z95.5 Presence of coronary angioplasty implant and graft; Z79.84 Long term (current) use of oral hypoglycemic drugs; Z79.82 Long term (current) use of aspirin; Z79.899 Other long term (current) drug therapy
CPT/HCPCS: J2250; J2001; J2704; G0105; 45378

== ENCOUNTER 2018-07-07 08:36 | Emergency (ER) | payer OTHER ==
[2018-07-07 08:48] VITALS: BP 97/67; PULSE 89; RESP 20; TEMP 98
--- NOTE | 2018-07-07 09:25 | XR ---
EXAMINATION TYPE: XR knee complete LT , 3 VIEWS DATE OF EXAM ORDERED: 07/07/2018 HISTORY: Pain. COMPARISON: Previous study dated 11/23/2016. FINDINGS: There is mild peaking of intercondylar spines. There is mild medial joint space loss. Ther e are mild remodeling changes within the patellofemoral joint. There is minimal fullness in the supra patellar region most likely reflecting a small joint effusion. No acute osseous lesion is seen. Note is made of some vascular calcification. IMPRESSION: EARLIEST CHANGES OF OSTEOARTHRITIS WITH A SMALL CONCOMITANT EFFUSION.
--- NOTE | 2018-07-07 10:05 | ED ---
General Adult HPI - General Chief complaint: Extremity Injury, Lower Stated complaint: knee swelling/pain Time Seen by Provider: 07/07/18 08:56 Source: patient, RN notes reviewed Mode of arrival: ambulatory Limitations: no limitations - History of Present Illness Initial comments: Patient 62-year-old male presenting to the emergency room today with a chief complaint of pain to the left knee. He does admit that he's had pain over the last 3 weeks. He is been walking with a limp. He denies any specific injury or trauma. States she's noticed swelling last 3 days. Patient does admit pains worse with extension flexion. Patient denies any other symptoms. Patient denies any recent fever, chills, shortness of breath, chest pain, back pain, abdominal pain, nausea or vomiting, numbness or tingling, headaches or visual changes, or any other complaints. - Related Data Home Medications Medication Instructions Recorded Confirmed metFORMIN HCL 1,000 mg PO BID 08/18/16 02/04/18 Previous Rx's Medication Instructions Recorded Aspirin 325 mg PO DAILY #0 tab 08/19/16 Atorvastatin [Lipitor] 80 mg PO HS #30 tab 08/19/16 Lisinopril [Zestril] 10 mg PO DAILY #30 tab 08/19/16 Metoprolol Tartrate [Lopressor] 50 mg PO BID #60 tab 08/19/16 Nitroglycerin Sl Tabs [Nitrostat] 0.4 mg SUBLINGUAL Q5M PRN #25 tab 08/19/16 Pioglitazone [Actos] 30 mg PO DAILY #30 tab 08/19/16 HYDROcodone/APAP 5-325MG [[place] 1 tab PO Q6HR PRN #10 tab 11/23/16 5-325] Ibuprofen [Motrin] 600 mg PO Q6HR PRN #40 day 07/07/18 Allergies Allergy/AdvReac Type Severity Reaction Status Date / Time No Known Allergies Allergy Verified 07/07/18 08:48 Review of Systems ROS Statement: Those systems with pertinent positive or pertinent negative responses have been documented in the HPI. ROS Other: All systems not noted in ROS Statement are negative. Past Medical History Past Medical History: Diabetes Mellitus, Hyperlipidemia, Hypertension, Myocardial Infarction ([place]) Last Myocardial Infarction Date:: 2016 History of Any Multi-Drug Resistant Organisms: None Reported Past Surgical History: Heart Catheterization With Stent Past Anesthesia/Blood Transfusion Reactions: No Reported Reaction Date of Last Stent Placement:: 2016 Past Psychological History: No Psychological Hx Reported Smoking Status: Never smoker Past Alcohol Use History: None Reported Past Drug Use History: None Reported - Past Family History Mother Family Medical History: Diabetes Mellitus, Hypertension, Myocardial Infarction ( [place]) Additional Family Medical History / Comment(s): 5/7 children have diabetes Sister(s) Family Medical History: Diabetes Mellitus, Renal Disease Brother(s) Family Medical History: Coronary Artery Disease (CAD), Diabetes Mellitus General Exam - General Exam Comments Initial Comments: General: The patient is awake and alert, in no distress, and does not appear acutely ill. Neck: The neck is supple. Cardiovascular: There is a regular rate and rhythm. No murmur, rub or gallop is appreciated. Respiratory: Lungs are clear to auscultation, respirations are non-labored, breath sounds are equal. No wheezes, stridor, rales, or rhonchi. Musculoskeletal: Patient does have moderate effusion to the left knee. Shows good range of motion both flexion and extension. Sensations are intact. Pulses equal bilaterally 2+. Strength 5/5. Mild tenderness over the medial aspect. Neurological: A&O x 3. CN II-XII intact, There are no obvious motor or sensory deficits. Coordination appears grossly intact. Speech is normal. Skin: Skin is warm and dry and no rashes or lesions are noted. Psychiatric: Normal mood and affect. Limitations: no limitations Course Vital Signs 07/07/18 08:46 Temperature 98 F Pulse Rate 89 Respiratory 20 Rate Blood Pressure 97/67 O2 Sat by Pulse 99 Oximetry Medical Decision Making - Medical Decision Making Patient reexamined at this time shows no signs of distress. His x-ray reviewed and does show arthritic changes. Patient does have mild knee effusion on the left side. He states it started 3 days ago. Was discussed with patient that we could remove fluid here in emergency room. He has declined this. There is no sign of infection. No redness. No fever. Patient states he would like to try anti-inflammatories and will follow-up with orthopedics. Disposition Clinical Impression: Knee effusion Disposition: HOME SELF-CARE Condition: Good Instructions: Swollen Knee Joint (ED) Additional Instructions: Please follow-up with orthopedics over the next 2 days. Please return here to the emergency room symptoms increase or worsen or for any other concerns. Please continue to ice elevate the affected area as discussed. He is using anti -inflammatories for pain. Prescriptions: Ibuprofen [Motrin] 600 mg PO Q6HR PRN #40 day PRN Reason: Pain Is patient prescribed a controlled substance at d/c from ED?: No Referrals: Patricia Gonsales MD [Primary Care Provider] - 1-2 days Yamil Vazquez DO [Doctor of Osteopathic Medicine] - 1-2 days Time of Disposition: 10:04
== END 2018-07-07 11:11 | disposition home or self-care (01) ==
LOC: EC 08:36
DX: M25.462 Effusion, left knee (principal); E11.9 Type 2 diabetes mellitus without complications; I25.2 Old myocardial infarction; Z79.84 Long term (current) use of oral hypoglycemic drugs; Z95.5 Presence of coronary angioplasty implant and graft
CPT/HCPCS: 99283

== ENCOUNTER 2020-01-13 18:47 | Emergency (ER) | payer OTHER, MEDICARE ==
[2020-01-13 18:56] VITALS: RESP 18
--- NOTE | 2020-01-13 19:09 | ED ---
Lower Extremity Injury HPI - General Source: patient Mode of arrival: ambulatory Limitations: no limitations <Adri Solomon - Last Filed: 01/13/20 20:28> <Lauren Sotelo - Last Filed: 01/19/20 01:25> - General Chief Complaint: Extremity Injury, Lower Stated Complaint: FB in foot - History of Present Illness Initial Comments: 64-year-old male presented for possible foreign body of the right foot. Patient states about a week ago he stepped on something he is not sure what it was. He states the area is tender to touch. As well as states that she was pushing on the area and thought she could see the foreign body coming out. She denies any purulent drainage is no significant redness. Patient denies any fevers chills or general malaise patient has no additional complaints. Patient unsure of last tetanus vaccination. Patient is a diabetic. (Adri Solomon) - Related Data Home Medications Medication Instructions Recorded Confirmed metFORMIN HCL 1,000 mg PO BID 08/18/16 01/13/20 Aspirin EC [Ecotrin Low Dose] 81 mg PO DAILY 01/13/20 01/13/20 Clopidogrel [Plavix] 75 mg PO DAILY 01/13/20 01/13/20 Hydrochlorothiazide [Hydrodiuril] 12.5 mg PO DAILY 01/13/20 01/13/20 Lisinopril [Zestril] 5 mg PO DAILY 01/13/20 01/13/20 Previous Rx's Medication Instructions Recorded Atorvastatin [Lipitor] 80 mg PO HS #30 tab 08/19/16 Metoprolol Tartrate [Lopressor] 50 mg PO BID #60 tab 08/19/16 Nitroglycerin Sl Tabs [Nitrostat] 0.4 mg SUBLINGUAL Q5M PRN #25 tab 08/19/16 Cephalexin [Keflex] 500 mg PO Q6HR 5 Days #20 cap 01/13/20 Allergies Allergy/AdvReac Type Severity Reaction Status Date / Time No Known Allergies Allergy Verified 01/13/20 20:03 Review of Systems ROS Other: All systems not noted in ROS Statement are negative. <Adri Solomon - Last Filed: 01/13/20 20:28> ROS Other: All systems not noted in ROS Statement are negative. <Lauren Sotelo - Last Filed: 01/19/20 01:25> ROS Statement: Those systems with pertinent positive or pertinent negative responses have been documented in the HPI. Past Medical History Past Medical History: Diabetes Mellitus, Hyperlipidemia, Hypertension, Myocardial Infarction ([place]) Last Myocardial Infarction Date:: 2016 History of Any Multi-Drug Resistant Organisms: None Reported Past Surgical History: Heart Catheterization With Stent Past Anesthesia/Blood Transfusion Reactions: No Reported Reaction Date of Last Stent Placement:: 2016 Past Psychological History: No Psychological Hx Reported Smoking Status: Never smoker Past Alcohol Use History: None Reported Past Drug Use History: Marijuana - Past Family History Mother Family Medical History: Diabetes Mellitus, Hypertension, Myocardial Infarction ([place]) Additional Family Medical History / Comment(s): 5/7 children have diabetes Sister(s) Family Medical History: Diabetes Mellitus, Renal Disease Brother(s) Family Medical History: Coronary Artery Disease (CAD), Diabetes Mellitus <Adri Solomon - Last Filed: 01/13/20 20:28> General Exam Limitations: no limitations <Adri Solomon - Last Filed: 01/13/20 20:28> - General Exam Comments Initial Comments: General: The patient is awake and alert, in no distress Eye: Pupils are equal, round and reactive to light, extra-ocular movements are intact. No nystagmus. There is normal conjunctiva bilaterally. No signs of icterus. Musculoskeletal: Normal ROM, no tenderness. Strength 5/5. Sensation intact. Radial and DP pulses equal bilaterally 2+. Neurological: A&O x 3. CN II-XII intact grossly, There are no obvious motor or sensory deficits. Coordination appears grossly intact. Speech is normal. Skin: Skin is warm and dry and no rashes. There is a circular puncture < 1/4cm in the left mid foot-- no significant redness to expressed drainage, cannot identify an obvious foreign body. Psychiatric: Cooperative, appropriate mood & affect, normal judgment. (Adri Solomon) Course Vital Signs 01/13/20 01/13/20 18:53 20:32 Temperature 98.1 F 98.6 F Pulse Rate 69 67 Respiratory 18 18 Rate Blood Pressure 133/72 128/66 O2 Sat by Pulse 99 99 Oximetry Medical Decision Making <Adri Solomon - Last Filed: 01/13/20 20:28> <Lauren Sotelo - Last Filed: 01/19/20 01:25> - Medical Decision Making 64yo male presenting to the ER today for possible foreign body, none identified by radiology in area of concern the FB identified on XR was a piece of metal on outside of toe appeared to be metal shaving. Patient was locally anesthetized using 11 blade needle after cleansing with iodine to slightly open the puncture wound and explored the area I did not know any foreign body there is no purulent drainage. There is no redness surrounding the area. Patient will be discharged with antibiotics and recommendation for PCP f/u. I discussed concerning for diabetic ulcers if no cared for properly/sugars not controlled. Recommend close monitoring and low threshold for f/u. (Adri Solomon) I was available for consultation in the emergency department. The history and physical exam were done by the midlevel provider. I was consulted for this torito ents care. I reviewed the case with the midlevel provider and based on their presentation of the patient, I agree with the assessment, medical decision making and plan of care as documented. Chart was dictated using [employer] dictation software. Attempts were made to correct any dictation errors however some typographical errors may persist. Patient was seen during a national state of emergency due to the Covid-19 pandemic. (Lauren Sotelo) Disposition Is patient prescribed a controlled substance at d/c from ED?: No Time of Disposition: 20:17 <Adri Solomon - Last Filed: 01/13/20 20:28> <Lauren Sotelo - Last Filed: 01/19/20 01:25> Clinical Impression: Puncture wound of right foot Disposition: HOME SELF-CARE Instructions (If sedation given, give patient instructions): Puncture Wound (ED) Additional Instructions: Please use medication as discussed. Please follow-up with family doctor in the next 2 days. Please return to emergency room if the symptoms increase or worsen or for any other concerns. Prescriptions: Cephalexin [Keflex] 500 mg PO Q6HR 5 Days #20 cap Referrals: None,Stated [Primary Care Provider] - 1-2 days
[2020-01-13] MEDS ORDERED: LIDOCAINE 1%-EPI 1:100,000 20 ML VIAL SQ STA (19:24)
[2020-01-13] MEDS ORDERED: DIPH,PERTUS(ACELL)TETVAC-LF 0.5 ML VIAL IM ONE (19:24)
--- NOTE | 2020-01-13 19:46 | XR ---
EXAMINATION TYPE: XR foot complete RT DATE OF EXAM: 01/13/2020 COMPARISON: None HISTORY: Rule out foreign body fifth metatarsal pain TECHNIQUE: Three-view left foot FINDINGS: There is a radiopaque foreign body along the skin surface of the lateral distal fifth digit . No additional suspicious radiopaque foreign bodies are evident. Joint spaces are preserved. Soft tissues appear normal. Large plantar calcaneal heel spur is present. IMPRESSION: 1. Punctate radiopaque foreign body along the distal lateral aspect of the fifth digit
[2020-01-13] MEDS ORDERED: CEPHALEXIN 500MG STARTER PACK 4 CAP BTL PO STA (20:17)
[2020-01-13 20:33] VITALS: BP 128/66; PULSE 67; TEMP 98.6
== END 2020-01-13 20:33 | disposition home or self-care (01) ==
LOC: EC 18:47
DX: S91.331A Puncture wound without foreign body, right foot, initial encounter (principal); E11.9 Type 2 diabetes mellitus without complications; E78.5 Hyperlipidemia, unspecified; I10 Essential (primary) hypertension; I25.2 Old myocardial infarction; Z79.84 Long term (current) use of oral hypoglycemic drugs; Z79.899 Other long term (current) drug therapy; Z79.82 Long term (current) use of aspirin; Z95.5 Presence of coronary angioplasty implant and graft; W22.8XXA Striking against or struck by other objects, initial encounter; Z23 Encounter for immunization
CPT/HCPCS: 90471; 90715; 99283

== ENCOUNTER 2020-04-09 11:07 | Inpatient (IN) | payer OTHER, MEDICARE ==
[2020-04-09] MEDS ORDERED: SODIUM CHLORIDE 0.9% 500 ML 500 ML IV STA (11:12)
[2020-04-09] MEDS ORDERED: HEPARIN SODIUM,PORCINE 5,000 UNIT/ML 1 ML VIAL IV STA (11:12)
[2020-04-09] MEDS ORDERED: NITROGLYCERIN OINT 1 INCH/GM PACKET TOPICAL STA (11:12)
[2020-04-09] MEDS ORDERED: ATORVASTATIN 80 MG TAB PO STA (11:13)
--- NOTE | 2020-04-09 11:16 | ED ---
General Adult HPI - General Stated complaint: Poss STEMI Time Seen by Provider: 04/09/20 11:07 Source: patient, RN notes reviewed, old records reviewed - History of Present Illness Initial comments: This is a 64-year-old male with a past medical history significant for coronary artery disease and multiple stent placements. Patient also is diabetic. Patient states she's been having intermittent chest pain since yesterday nitr oglycerin seemed to take the pain away but then it comes back. Patient states they took a nitroglycerin in route to the emergency department and took his pain away completely. Patient has no pain currently. Patient states that he was somewhat short of breath earlier but there was no nausea no diaphoresis - Related Data Home Medications Medication Instructions Recorded Confirmed metFORMIN HCL 1,000 mg PO BID 08/18/16 01/13/20 Aspirin EC [Ecotrin Low Dose] 81 mg PO DAILY 01/13/20 01/13/20 Clopidogrel [Plavix] 75 mg PO DAILY 01/13/20 01/13/20 hydroCHLOROthiazide [Hydrodiuril] 12.5 mg PO DAILY 01/13/20 01/13/20 lisinopriL [Zestril] 5 mg PO DAILY 01/13/20 01/13/20 Previous Rx's Medication Instructions Recorded Atorvastatin [Lipitor] 80 mg PO HS #30 tab 08/19/16 Metoprolol Tartrate [Lopressor] 50 mg PO BID #60 tab 08/19/16 Nitroglycerin Sl Tabs [Nitrostat] 0.4 mg SUBLINGUAL Q5M PRN #25 tab 08/19/16 Cephalexin [Keflex] 500 mg PO Q6HR 5 Days #20 cap 01/13/20 Allergies Allergy/AdvReac Type Severity Reaction Status Date / Time No Known Allergies Allergy Verified 01/13/20 20:03 Review of Systems ROS Statement: Those systems with pertinent positive or pertinent negative responses have been documented in the HPI. ROS Other: All systems not noted in ROS Statement are negative. Past Medical History Past Medical History: Diabetes Mellitus, Hyperlipidemia, Hypertension, Myocardial Infarction ([place]) Last Myocardial Infarction Date:: 2016 History of Any Multi-Drug Resistant Organisms: None Reported Past Surgical History: Heart Catheterization With Stent Past Anesthesia/Blood Transfusion Reactions: No Reported Reaction Date of Last Stent Placement:: 2016 Past Psychological History: No Psychological Hx Reported Past Alcohol Use History: None Reported Past Drug Use History: Marijuana - Past Family History Mother Family Medical History: Diabetes Mellitus, Hypertension, Myocardial Infarction ([place]) Additional Family Medical History / Comment(s): 5/7 children have diabetes Sister(s) Family Medical History: Diabetes Mellitus, Renal Disease Brother(s) Family Medical History: Coronary Artery Disease (CAD), Diabetes Mellitus General Exam - General Exam Comments Initial Comments: GENERAL: Patient is well-developed and well-nourished. Patient is nontoxic and well- hydrated and is in no acute distress. ENT: Neck is soft and supple. No significant lymphadenopathy is noted. Oropharynx is clear. Moist mucous membranes. Neck has full range of motion without eliciting any pain. EYES: The sclera were anicteric and conjunctiva were pink and moist. Extraocular movements were intact and pupils were equal round and reactive to light. Eyelids were unremarkable. PULMONARY: Unlabored respirations. Good breath sounds bilaterally. No audible rales rhonchi or wheezing was noted. CARDIOVASCULAR: There is a regular rate and rhythm without any murmurs gallops or rubs. ABDOMEN: Soft and nontender with normal bowel sounds. SKIN: Skin is clear with no lesions or rashes and otherwise unremarkable. NEUROLOGIC: Patient is alert and oriented x3. Cranial nerves II through XII are grossly intact. Motor and sensory are also intact. Normal speech, volume and content. Symmetrical smile. MUSCULOSKELETAL: Normal extremities with adequate strength and full range of motion. LYMPHATICS: No significant lymphadenopathy is noted PSYCHIATRIC: Normal psychiatric evaluation. Medical Decision Making - Medical Decision Making EKG shows sinus rhythm at 63 bpm NH interval 206 QRS is 100 a QT interval 434 QTC is 444. Patient's EKG shows ST segment elevation in II, III, and F aVF with ST segment depression in 1 and aVL. I started the patient on heparin bolus I called cardiology and I called a STEMI overhead. I spoke with some physicians agreed to admit the patient admitted the patient and patient went to the Pharmacy Technician Infusion. Critical Care Time Critical Care Time: Yes Total Critical Care Time: 35 Disposition Clinical Impression: STEMI (ST elevation myocardial infarction) Disposition: ADMITTED IP TO THIS HOSP Referrals: Ruperto Richardson [Primary Care Provider] - 1-2 days Time of Disposition: 11:16
[2020-04-09 11:25] LABS: Basophils % (A) 0 %; Eosinophils # (A) 0.1 k/uL (0-0.7); Eosinophils % (A) 2 %; HCT 41.3 % (39.0-53.0); HGB 13.6 gm/dL (13.0-17.5); Lymphocytes # (A) 1.3 k/uL (1.0-4.8); Lymphocytes % (A) 17 %; MCV 90.9 fL (80.0-100.0); Mean Platelet Volume 6.9; Monocytes # (A) 0.4 k/uL (0-1.0); Monocytes % (A) 5 %; Neutrophils # (A) 5.5 k/uL (1.3-7.7); Neutrophils % (A) 74 %; Platelet Count 234 k/uL (150-450); RBC 4.54 m/uL (4.30-5.90); RDW 13.5 % (11.5-15.5); WBC 7.4 k/uL (3.8-10.6)
[2020-04-09] MEDS ORDERED: VERAPAMIL 2.5 MG/ML 2 ML AMP ONE (11:28)
[2020-04-09] MEDS ORDERED: fentaNYL (PF) 50 MCG/ML 2 ML AMP ONE (11:31)
[2020-04-09] MEDS ORDERED: fentaNYL (PF) 50 MCG/ML 2 ML AMP IVP ONE (11:32)
[2020-04-09] MEDS ORDERED: MIDAZOLAM 2 MG/2 ML VIAL IVP ONE (11:32)
[2020-04-09] MEDS ORDERED: LIDOCAINE 1% INJ 10MG/ML (20 ML MDV) SQ ONE (11:34)
[2020-04-09] MEDS ORDERED: IV FLUID CONTINUATION 1,000 ML IV ONE (11:37)
[2020-04-09] MEDS ORDERED: HEPARIN SODIUM 1,000 UN/ML (10ML VL) ONE (11:40)
[2020-04-09] MEDS ORDERED: HEPARIN SODIUM 1,000 UN/ML (10ML VL) IV ONE (11:42)
[2020-04-09 11:44] LABS: Partial Thromboplastin Time 23.4 sec (22.0-30.0); Prothrombin Time 10.2 sec (9.0-12.0)
[2020-04-09] MEDS ORDERED: NITROGLYCERIN 1000MCG/10ML SYRINGE INTRACORON ONE (11:51)
[2020-04-09] MEDS ORDERED: TICAGRELOR 90 MG TAB ONE (11:52)
[2020-04-09] MEDS ORDERED: TICAGRELOR 90 MG TAB PO ONE (11:54)
[2020-04-09] MEDS ORDERED: niCARdipine 25 MG/10 ML VIAL ONE (11:56)
[2020-04-09] MEDS ORDERED: niCARdipine Syringe (1,000 mcg/10 mL) INTRACORON ONE (11:58)
[2020-04-09] MEDS ORDERED: IOPAMIDOL-370 125ML BTL INJ ONE (12:00)
[2020-04-09] MEDS ORDERED: ZOLPIDEM 5 MG TAB PO PRN (12:11)
[2020-04-09] MEDS ORDERED: NITROGLYCERIN SL TABS 0.4 MG TAB SUBLINGUAL PRN (12:11)
[2020-04-09] MEDS ORDERED: MAG HYDROX/AL HYDROX/SIMETH 30 ML CUP PO PRN (12:11)
[2020-04-09] MEDS ORDERED: ATROPINE SULFATE 0.1 MG/ML 10ML SYRINGE IV PRN (12:11)
[2020-04-09] MEDS ORDERED: RX INFO: IV CONTRAST WAS GIVEN 1 EACH MISC MISCELLANE PRN (12:11)
[2020-04-09 12:23] LABS: ALT 36 U/L (4-49); AST 78 U/L (17-59); African American GFR (CKD) >90 (>60 ml/min/1.73 sqM); Albumin 4.2 g/dL (3.5-5.0); Alkaline Phosphatase 94 U/L (38-126); Anion Gap 8 mmol/L; Blood Urea Nitrogen 25 mg/dL (9-20); Calcium 9.7 mg/dL (8.4-10.2); Carbon Dioxide 23 mmol/L (22-30); Chloride 106 mmol/L (98-107); Glucose 162 mg/dL (74-99); Magnesium 1.7 mg/dL (1.6-2.3); Non-African American GFR(CKD) 89 (>60 ml/min/1.73 sqM); Potassium 4.4 mmol/L (3.5-5.1); Sodium 137 mmol/L (137-145); Total Bilirubin 0.6 mg/dL (0.2-1.3); Total Protein 7.6 g/dL (6.3-8.2)
[2020-04-09] MEDS ORDERED: SODIUM CHLORIDE 0.9% 1,000 ML IV SCH (12:30)
[2020-04-09 12:34] LABS: Glucose,Whole Blood 135 mg/dL (75-99)
--- NOTE | 2020-04-09 13:03 | P.CRDCN ---
History of Present Illness History of present illness: This is Dr. Lopez dictating a consult on this patient The patient was interviewed and examined IMPRESSION / ASSESSMENT: Acute inferior wall LA, ST elevation History of type 2 diabetes History of coronary artery disease status post stenting to the RCA and left circumflex Currently on atorvastatin and metoprolol and dual antiplatelet therapy PLAN: Proceed with coronary angiography, high-dose statins, IV heparin, antiplatelet therapy HPI Patient started experiencing midsternal chest discomfort on . The pain would come and go and he is quite uncomfortable but finally came today. I'm not sure why he delayed this. The pain is similar to what he had before when he had the stent His twelve-lead EKG shows ST elevation in the inferior leads He is on nitroglycerin in route and now is pain-free. His vitals are stable ROS: No fever chills or rigors, no cough, phlegm or expectoration, no nausea, vomiting or diarrhea, no hematuria, dysuria, no musculoskeletal complaints, no strokes or seizures, no skin lesions. EXAMINATION: Pulse rate in the 60s, afebrile 98.3F, blood pressure 134/70 mmHg Breath sounds are clear no rhonchi no crackles Heart sounds S1 and S2 are soft no murmurs no gallop or rub Extremities warm no edema Abdomen soft No JVD REVIEW OF LABS, ECG & MEDICAL DATA Medications include metformin aspirin Plavix hydrochlorothiazide and lisinopril, atorvastatin metoprolol He has NO KNOWN DRUG ALLERGIES Diabetes type 2, dyslipidemia, hypertension Past Medical History Past Medical History: Diabetes Mellitus, Hyperlipidemia, Hypertension, Myocardial Infarction ([place]) Last Myocardial Infarction Date:: 2016 History of Any Multi-Drug Resistant Organisms: None Reported Past Surgical History: Heart Catheterization With Stent Past Anesthesia/Blood Transfusion Reactions: No Reported Reaction Date of Last Stent Placement:: 2016 Past Psychological History: No Psychological Hx Reported Past Alcohol Use History: None Reported Past Drug Use History: Marijuana - Past Family History Mother Family Medical History: Diabetes Mellitus, Hypertension, Myocardial Infarction ([place]) Additional Family Medical History / Comment(s): 5/7 children have diabetes Sister(s) Family Medical History: Diabetes Mellitus, Renal Disease Brother(s) Family Medical History: Coronary Artery Disease (CAD), Diabetes Mellitus Medications and Allergies Home Medications Medication Instructions Recorded Confirmed Type metFORMIN HCL 1,000 mg PO BID-W/MEALS 08/18/16 04/09/20 History Atorvastatin [Lipitor] 80 mg PO HS #30 tab 08/19/16 04/09/20 Rx Metoprolol Tartrate [Lopressor] 50 mg PO BID #60 tab 08/19/16 04/09/20 Rx Nitroglycerin Sl Tabs [Nitrostat] 0.4 mg SUBLINGUAL Q5M PRN #25 tab 08/19/16 01/13/20 Rx Aspirin EC [Ecotrin Low Dose] 81 mg PO DAILY 01/13/20 01/13/20 History Clopidogrel [Plavix] 75 mg PO DAILY 01/13/20 04/09/20 History hydroCHLOROthiazide [Hydrodiuril] 12.5 mg PO DAILY 01/13/20 04/09/20 History Lisinopril [Prinivil] 10 mg PO DAILY 04/09/20 04/09/20 History Allergies Allergy/AdvReac Type Severity Reaction Status Date / Time No Known Allergies Allergy Verified 04/09/20 11:24 Physical Exam Vitals: Vital Signs Temp Pulse Resp BP Pulse Ox 04/09/20 11:20 98.3 F 52 L 20 134/70 96 04/09/20 11:08 98.4 F 60 16 117/70 97 Intake and Output 04/08/20 04/09/20 04/09/20 22:59 06:59 14:59 Intake Total 100 Balance 100 Intake: IV 100 Other: Weight 81.511 kg Results 04/09/20 11:15 04/09/20 11:15 Cardiac Enzymes 04/09/20 04/09/20 Range/Units 11:15 11:15 AST 78 H (17-59) U/L Troponin I 2.660 H* (0.000-0.034) ng/mL Coagulation 04/09/20 Range/Units 11:15 PT 10.2 (9.0-12.0) sec APTT 23.4 (22.0-30.0) sec CBC 04/09/20 Range/Units 11:15 WBC 7.4 (3.8-10.6) k/uL RBC 4.54 (4.30-5.90) m/uL Hgb 13.6 (13.0-17.5) gm/dL Hct 41.3 (39.0-53.0) % Plt Count 234 (150-450) k/uL Comprehensive Metabolic Panel 04/09/20 Range/Units 11:15 Sodium 137 (137-145) mmol/L Potassium 4.4 (3.5-5.1) mmol/L Chloride 106 (98-107) mmol/L Carbon Dioxide 23 (22-30) mmol/L BUN 25 H (9-20) mg/dL Creatinine 0.89 (0.66-1.25) mg/dL Glucose 162 H (74-99) mg/dL Calcium 9.7 (8.4-10.2) mg/dL AST 78 H (17-59) U/L ALT 36 (4-49) U/L Alkaline Phosphatase 94 (38-126) U/L Total Protein 7.6 (6.3-8.2) g/dL Albumin 4.2 (3.5-5.0) g/dL Current Medications Generic Name Dose Route Start Last Admin Trade Name Freq PRN Reason Stop Dose Admin Al Hydroxide/Mg Hydroxide 30 ml 04/09/20 12:11 Mag Hydrox/Al Hydrox/Simeth 30 Ml Cup PO Q4HR PRN Heartburn Aspirin 81 mg 04/10/20 09:00 Aspirin 81 Mg PO DAILY [facility] Atorvastatin Calcium 80 mg 04/09/20 21:00 Atorvastatin 80 Mg Tab PO HS BEST Atropine Sulfate 0.5 mg 04/09/20 12:11 Atropine Sulfate 0.1 Mg/Ml 10ml Syringe IV ONCE PRN Symptomatic Bradycardia Hydrochlorothiazide 12.5 mg 04/10/20 09:00 Hydrochlorothiazide 12.5 Mg Cap PO DAILY [facility] Lisinopril 10 mg 04/10/20 09:00 Lisinopril 10 Mg Tab PO DAILY [facility] Metoprolol Tartrate 50 mg 04/09/20 21:00 Metoprolol Tartrate 50 Mg Tab PO BID [facility] Miscellaneous Information 1 each 04/09/20 12:11 Rx Info: Iv Contrast Was Given 1 Each Misc MISCELLANE 04/11/20 12:11 DAILY PRN Per Protocol Nitroglycerin 0.4 mg 04/09/20 12:11 Nitroglycerin Sl Tabs 0.4 Mg Tab SUBLINGUAL Q5M PRN Chest Pain Ticagrelor 90 mg 04/09/20 21:00 Ticagrelor 90 Mg Tab PO BID [facility] Zolpidem Tartrate 5 mg 04/09/20 12:11 Zolpidem 5 Mg Tab PO HS PRN Insomnia Intake and Output 04/08/20 04/09/20 04/09/20 22:59 06:59 14:59 Intake Total 100 Balance 100 Intake: IV 100 Other: Weight 81.511 kg Patient Weight 04/10/20 06:59 Weight 81.511 kg 04/09/20 11:15 04/09/20 11:15
--- NOTE | 2020-04-09 13:56 | CC ---
CARDIAC CATHETERIZATION REPORT DATE OF SERVICE: 04/09/2020 PERFORMING PHYSICIAN: Jean Monroy MD. PROCEDURE PERFORMED: 1. Selective left and right coronary angiogram. 2. Successful stenting of the mid right coronary artery using 3.5 x 15 mm Xience JAMIL with an excellent angiographic result and reduction of stenosis from 99% to 0%. INDICATION: This is a 64-year-old gentleman with coronary artery disease and prior triple-vessel stenting as well as diabetes and hypertension and dyslipidemia. He presented to the emergency department with chest discomfort and was diagnosed with acute inferior ST- elevation myocardial infarction. The patient was seen by Dr. Lopez who recommended proceeding with coronary angiogram. APPROACH: Right common femoral artery. COMPLICATION: None. LEVEL OF SEDATION: Moderate with sedation length of 26 minutes. Door to balloon is 42 minutes. PROCEDURE DESCRIPTION: After obtaining informed consent, the patient was brought to the cardiac laborer poultry hatchery. The right common femoral artery was cannulated using micropuncture technique and a micropuncture wire passed easily. Then I placed a 6-Malaysian sheath in the right common femoral artery. I did after that selective left and right coronary angiogram. Selective left coronary angiogram was performed using JL4 catheter and selective right coronary angiogram was performed using JR4 guide. I did left heart catheterization initially when the JL4 catheter crossed the aortic valve then I did pullback across the valve. The procedure was completed without any complication. Selective coronary angiogram. 1. The left main is angiographically normal. It bifurcates into left circumflex, ramus intermedius, and left anterior descending artery. 2. The left circumflex is a large caliber vessel it is a nondominant vessel. The proximal left circumflex appeared to be stented and the stent is patent. The mid left circumflex appeared to have mild disease only. The left circumflex distally appeared to be stented as well And the stent is patent. 3. The ramus intermedius is angiographically normal. 4. The LAD: The proximal LAD is stented on long segment and the stent is patent. The mid LAD has intermediate lesion that appeared to be in the range of 30% and the LAD distally appeared to have mild diffuse disease only. 5. The RCA is stented in the midportion with critical in-stent restenosis. The proximal RCA has intermediate lesion and appeared to be in the range of 30% to 40%. HEMODYNAMICS: The LVEDP was about 4-6 mmHg without significant gradient across aortic valve. PCI OF THE RCA: Anticoagulation was initiated using heparin because the patient was given heparin in the ED and I checked the before and it was therapeutic Subsequently, I did engage the RCA using JR4 guide. I did wire the RCA using 2 wires. I initially used a Whisper wire and subsequently a run-through wire. The reason was because the RCA was extremely tortuous in the proximal to midportion. After that I did balloon angioplasty using 2.5 x 12 mm balloon. The balloon was inflated under 14 atmospheres for 20 seconds inside that stent in the mid RCA. Subsequently I deployed 3.5 x 15 mm Xience JAMIL where the stent was positioned under fluoroscopy guidance and deployed under its nominal pressure. The following angiogram showed excellent angiographic results and the procedure was completed without any complication. CONCLUSION: 1. Acute inferior ST-elevation myocardial infarction in this 64-year-old gentleman with coronary artery disease and prior triple-vessel stenting. 2. Critical in-stent restenosis involving the mid right coronary artery. 3. Patent stents in the left circumflex. 4. Patent stent in the left anterior descending. 5. Successful stenting of the right coronary artery, as described above, with excellent angiographic results and reduction of stenosis from 99% to 0%. 6. Low left ventricular end-diastolic pressure. POSTPROCEDURE MANAGEMENT: 1. Aggressive cholesterol control. 2. Risk factor modifications. 3. Change the Plavix to Brilinta. 4. Lowered the dose of aspirin to 81 mg p.o. daily. 5. An echocardiogram with Doppler. 6. Standard groin care. 7. Follow up with the patient. MMODL / IJN: [id number] /
--- NOTE | 2020-04-09 14:44 | P.HPIM ---
History of Present Illness H&P Date: 04/09/20 Chief Complaint: Chest pain This is a 64-year-old male with a complex past medical history noted below significant for coronary artery disease with prior stent placement who presented to the emergency room with chest pain. Patient said that pain started yesterday and is being ongoing on and off but today was more severe and persistent so he decided to come into the emergency room. In the ER, 12-lead EKG showed acute inferior wall ST segment elevation and a STEMI alert was activated patient was taken to the catheterization laboratory technician urgently and underwent successful stent placement to the RCA. Patient was seen by me in the ICU. He is awake and alert. He denies any chest pain at this time. Review of Systems Review of system: 14 points review of systems were obtained and were negative except to what were mentioned in the HPI. Past Medical History Past Medical History: Diabetes Mellitus, Hyperlipidemia, Hypertension, Myocardial Infarction ([place]) Last Myocardial Infarction Date:: 2016 History of Any Multi-Drug Resistant Organisms: None Reported Past Surgical History: Heart Catheterization With Stent Past Anesthesia/Blood Transfusion Reactions: No Reported Reaction Date of Last Stent Placement:: 2016 Past Psychological History: No Psychological Hx Reported Past Alcohol Use History: None Reported Past Drug Use History: Marijuana - Past Family History Mother Family Medical History: Diabetes Mellitus, Hypertension, Myocardial Infarction ([place]) Additional Family Medical History / Comment(s): 5/7 children have diabetes Sister(s) Family Medical History: Diabetes Mellitus, Renal Disease Additional Family Medical History / Comment(s): Sis x 3. Elizabeth: Fibro. Nicole: ? DM. Jada: ?DM Brother(s) Family Medical History: Coronary Artery Disease (CAD), Diabetes Mellitus Additional Family Medical History / Comment(s): prosthesis x 2, passed due to NM years ago Medications and Allergies Home Medications Medication Instructions Recorded Confirmed Type metFORMIN HCL 1,000 mg PO BID-W/MEALS 08/18/16 04/09/20 History Atorvastatin [Lipitor] 80 mg PO HS #30 tab 08/19/16 04/09/20 Rx Metoprolol Tartrate [Lopressor] 50 mg PO BID #60 tab 08/19/16 04/09/20 Rx Nitroglycerin Sl Tabs [Nitrostat] 0.4 mg SUBLINGUAL Q5M PRN #25 tab 01/21/17 09/11/20 Rx Aspirin EC [Ecotrin Low Dose] 81 mg PO DAILY 01/13/20 04/09/20 History Clopidogrel [Plavix] 75 mg PO DAILY 01/13/20 04/09/20 History hydroCHLOROthiazide [Hydrodiuril] 12.5 mg PO DAILY 01/13/20 04/09/20 History Lisinopril [Prinivil] 10 mg PO DAILY 04/09/20 04/09/20 History Allergies Allergy/AdvReac Type Severity Reaction Status Date / Time No Known Allergies Allergy Verified 04/09/20 11:24 Physical Exam Vitals: Vital Signs Temp Pulse Resp BP Pulse Ox 04/09/20 11:20 98.3 F 52 L 20 134/70 96 04/09/20 11:08 98.4 F 60 16 117/70 97 Intake and Output 04/08/20 04/09/20 04/09/20 22:59 06:59 14:59 Intake Total 100 Balance 100 Intake: IV 100 Other: Weight 81.511 kg General: The patient is awake and alert, in no distress Eye: there is normal conjunctiva bilaterally. Neck: The neck is supple, there is no JVD. Cardiovascular: Normal S1-S2, no S3-S4, no murmurs. Respiratory: Lungs clear to auscultation bilaterally Gastrointestinal: Abdomen is soft, nontender Musculoskeletal: There is no pedal edema. Neurological:. Speech is normal. Skin: Skin is warm and dry Results CBC & Chem 7: 04/09/20 11:15 04/09/20 11:15 Labs: Abnormal Lab Results - Last 24 Hours (Table) 04/09/20 04/09/20 04/09/20 Range/Units 11:15 11:15 12:32 BUN 25 H (9-20) mg/dL Glucose 162 H (74-99) mg/dL POC Glucose (mg/dL) 135 H (75-99) mg/dL AST 78 H (17-59) U/L Troponin I 2.660 H* (0.000-0.034) ng/mL Thrombosis Risk Factor Assmnt - Choose All That Apply Each Factor Represents 1 point: Acute NM, Obesity (BMI >25) Each Risk Factor Represents 2 Points: Age 61-74 years Other congenital or acquired thrombophilia - If yes, enter type in comment: No Thrombosis Risk Factor Assessment Total Risk Factor Score: 4 Thrombosis Risk Factor Assessment Level: Moderate Risk Assessment and Plan Assessment: 1. ST elevation NM: Status post left heart catheterization with successful stent placement to the RCA. On optimal medical management per cardiology orders. Dual antiplatelet therapy. Echocardiogram ordered. 2. Coronary artery disease with prior stent placement in the left circumflex and LAD 3. Mixed hyperlipidemia on Lipitor 4. Type 2 diabetes: Hold metformin and continue sliding scale insulin 5. DVT prophylaxis with SCDs Today, I reviewed his medication list and lab work results. Continue gentle IV fluid hydration. Repeat lab work in the morning. Continue telemetry monitoring/ICU care. The patient is admitted with an anticipated greater than 2 midnight stay for evaluation of the medical problems noted above Discussed with: Patient and nursing staff Anticipated discharge date: To be determined based on clinical course Anticipated discharge place: home A total of 45 minutes was spent on the care of this complex patient more than 50% of the time was spent in counseling and care coordination.
[2020-04-09 17:12] LABS: Glucose,Whole Blood 120 mg/dL (75-99)
[2020-04-09] MEDS: INSULIN ASPART (NovoLOG) 100 UNIT/ML VIAL SQ SCH ×2 (19:07→21:17)
--- NOTE | 2020-04-09 20:08 | LTR ---
April 09, 2020 To: Dr. Ruperto Richardson Re: Nilson David (51) Dear Dr. Richardson, Mr. Nilson David presented to the emergency department at [facility] with chest discomfort and was diagnosed with acute inferior ST-elevation myocardial infarction. He underwent an emergent heart catheterization that revealed subtotally occluded right coronary artery, which was opened and stented, with excellent angiographic results. Thank you for allowing us to participate in his care and please do not hesitate to call if you have any question or concern. Sincerely, Jean Monroy M.D. JOHN / JORJE: [id number] /
[2020-04-09] MEDS: ATORVASTATIN 80 MG TAB PO SCH (21:08)
[2020-04-09] MEDS: TICAGRELOR 90 MG TAB PO SCH (21:08)
[2020-04-09] MEDS: METOPROLOL TARTRATE 50 MG TAB PO SCH (21:08)
[2020-04-09] MEDS: HEPARIN SODIUM,PORCINE 5,000 UNIT/ML 1 ML VIAL SQ SCH (21:09)
[2020-04-09 21:16] LABS: Glucose,Whole Blood 177 mg/dL (75-99)
[2020-04-10 05:48] LABS: Basophils % (A) 0 %; Eosinophils # (A) 0.1 k/uL (0-0.7); Eosinophils % (A) 1 %; HCT 36.5 % (39.0-53.0); HGB 11.6 gm/dL (13.0-17.5); Lymphocytes # (A) 1.2 k/uL (1.0-4.8); Lymphocytes % (A) 19 %; MCH 29.4 pg (25.0-35.0); MCHC 31.7 g/dL (31.0-37.0); MCV 92.5 fL (80.0-100.0); Mean Platelet Volume 7.1; Monocytes # (A) 0.4 k/uL (0-1.0); Monocytes % (A) 7 %; Neutrophils # (A) 4.5 k/uL (1.3-7.7); Neutrophils % (A) 70 %; Platelet Count 175 k/uL (150-450); RBC 3.94 m/uL (4.30-5.90); RDW 13.8 % (11.5-15.5); WBC 6.4 k/uL (3.8-10.6)
[2020-04-10 06:22] LABS: African American GFR (CKD) >90 (>60 ml/min/1.73 sqM); Anion Gap 5 mmol/L; Blood Urea Nitrogen 23 mg/dL (9-20); Calcium 8.8 mg/dL (8.4-10.2); Carbon Dioxide 24 mmol/L (22-30); Chloride 107 mmol/L (98-107); Glucose 160 mg/dL (74-99); Non-African American GFR(CKD) >90 (>60 ml/min/1.73 sqM); Sodium 136 mmol/L (137-145)
[2020-04-10 07:00] LABS: Glucose,Whole Blood 133 mg/dL (75-99)
[2020-04-10] MEDS: INSULIN ASPART (NovoLOG) 100 UNIT/ML VIAL SQ SCH ×4 (07:05→20:37)
--- NOTE | 2020-04-10 08:49 | ECHOF ---
Referral Reason:STEMI MEASUREMENTS -------- HEIGHT: 172.7 cm WEIGHT: 81.2 kg BP: 134/70 IVSd: 1.3 cm (0.6 - 1.1) LVIDd: 3.6 cm (3.9 - 5.3) LVPWd: 1.3 cm (0.6 - 1.1) EDV(Teich): 55 ml IVSs: 1.2 cm LVIDs: 2.7 cm LVPWs: 1.7 cm %IVS Thck: -11 % ESV(Teich): 26 ml EF(Teich): 53 % %FS: 27 % SV(Teich): 29 ml LVLd A4C: 9.1 cm LVEDV MOD A4C: 91 ml LVLs A4C: 7.5 cm LVESV MOD A4C: 31 ml LVEF MOD A4C: 66 % SV MOD A4C: 60 ml LALs A4C: 4.1 cm LAAs A4C: 12.2 cm LAESV A-L A4C: 31 ml LAESV MOD A4C: 29 ml LALs A2C: 5.1 cm LAAs A2C: 16.7 cm LAESV A-L A2C: 46 ml LAESV MOD A2C: 45 ml LAESV(A-L): 42 ml LAESV Index (A-L): 21.63 ml/m Ao Diam: 3.5 cm (2.0 - 3.7) AV Cusp: 2.0 cm (1.5 - 2.6) MV E Lane: 0.50 m/s MV DecT: 337 ms MV Dec [place]: 1.5 m/s MV A Lane: 0.67 m/s MV E/A Ratio: 0.74 MV PHT: 98 ms LVOT Vmax: 0.94 m/s LVOT maxP.54 mmHg AV Vmax: 1.03 m/s AV maxP.20 mmHg TR Vmax: 2.52 m/s TR maxP.49 mmHg RAP: 5.00 mmHg RVSP: 30.49 mmHg FINDINGS -------- This was a technically difficult study with suboptimal views. Patient is post cardiac catheterization and cannot be in left lateral position. The left ventricular size is normal. There is mild concentric left ventricular hypertrophy. Overa ll left ventricular systolic function is mildly impaired with, an EF between 45 - 50 %. Apical late ral LV wall motion is hypokinetic. Apical inferior LV wall motion is hypokinetic. Apical septum LV wall motion is hypokinetic. The RV was not well visualized. Normal LA size by volume 22+/-6 ml/m2. The right atrium was not well visualized. 5.0mg of Lumason was utilized for enhancement of images Interatrial and interventricular septum intact. The aortic valve was not well visualized. There is no evidence of aortic regurgitation. There is no evidence of aortic stenosis. Mild mitral regurgitation is present. Mild tricuspid regurgitation present. There is no evidence of pulmonary hypertension. The right v entricular systolic pressure, as measured by Doppler, is 30.49mmHg. The pulmonic valve was not well visualized. The aortic root size is normal. IVC Not well visulized. There is no pericardial effusion. CONCLUSIONS -------- 1. The left ventricular size is normal. 2. There is mild concentric left ventricular hypertrophy. 3. Overall left ventricular systolic function is mildly impaired with, an EF between 45 - 50 %. 4. Apical lateral LV wall motion is hypokinetic. 5. Apical inferior LV wall motion is hypokinetic. 6. Apical septum LV wall motion is hypokinetic. 7. Mild mitral regurgitation is present. 8. Mild tricuspid regurgitation present. SUPERVISOR SHIPPING ROOM: Iveth De León RDCS
[2020-04-10] MEDS ORDERED: hydroCHLOROthiazide 12.5 MG CAP PO SCH (09:00)
[2020-04-10] MEDS ORDERED: ASPIRIN 81 MG PO SCH (09:00)
[2020-04-10] MEDS ORDERED: lisinopriL 10 MG TAB PO SCH (09:00)
[2020-04-10] MEDS: ASPIRIN 81 MG PO SCH (09:26)
[2020-04-10] MEDS: HEPARIN SODIUM,PORCINE 5,000 UNIT/ML 1 ML VIAL SQ SCH ×2 (09:26→20:32)
[2020-04-10] MEDS: METOPROLOL TARTRATE 50 MG TAB PO SCH ×2 (09:26→20:32)
[2020-04-10] MEDS: TICAGRELOR 90 MG TAB PO SCH ×2 (09:26→20:32)
[2020-04-10 10:51] VITALS: BMI 28.3
[2020-04-10] MEDS ORDERED: MAGNESIUM SULFATE-D5W PMX 1 GM in DEXTROSE/WATER 1 100ML.BAG IVPB ONE (11:15)
[2020-04-10 11:48] LABS: Glucose,Whole Blood 110 mg/dL (75-99)
[2020-04-10] MEDS: lisinopriL 10 MG TAB PO SCH (12:01)
--- NOTE | 2020-04-10 12:19 | P.PN ---
Subjective This is Bernadine Casey PA-C dictating a progress note on this patient The patient was interviewed and examined by me as well as by Dr. Lopez Case discussed with Dr. Lopez and he agrees with the plan of care HPI/interval history Patient is a 64-year-old male with a history of CAD status post stenting to the RCA and left circumflex, diabetes, and hypertension who presented with an acute inferior wall ST elevation [place]. 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 He was found to have a patent stent to the proximal left circumflex, proximal stent to the LAD, 30% lesion of the mid LAD, RCA with critical in-stent restenosis and he subsequently underwent successful stenting. Patient seen and examined resting in the ICU. He denies any further chest discomfort. No shortness of breath. No dizziness. Telemetry shows sinus rhythm EXAMINATION Patient is afebrile, pulse in the 60s, respirations 20, blood pressure 116/60, oxygen saturation 96% on room air Patient seen and examined the chair, in no acute distress Lungs are clear to auscultation bilaterally Heart is regular, no audible murmurs Right groin axis site with mild bruising, minimally tender to palpation, no palpable hematoma REVIEW OF LABS, ECG Echocardiogram shows EF 45-50% with apical lateral, apical inferior, apical septal hypokinesis WBC 6.4, hemoglobin 11.6, platelets 175, potassium 4.0, BUN 23, creatinine 0.78 IMPRESSION / ASSESSMENT: #1 acute inferior wall [place] status post successful stenting to the RCA #2 triple-vessel CAD with recent catheterization showing patent stents to the LAD and left circumflex #3 ischemic cardiomyopathy #4 hypertension #5 diabetes PLAN: We'll maximize his medical treatment Stop the hydrochlorothiazide and monitor his blood pressure Dual antiplatelet therapy High-dose statins Continue to monitor, patient may go to telemetry unit Objective - Vital Signs Vital signs: Vital Signs Temp 98.8 F 04/10/20 08:00 Pulse 69 04/10/20 08:00 Resp 20 04/10/20 08:00 BP 116/60 04/10/20 08:00 Pulse Ox 96 04/10/20 08:00 Intake & Output 04/09/20 04/10/20 04/10/20 18:59 06:59 18:59 Intake Total 450 1150 300 Output Total 200 1200 300 Balance 250 -50 0 Weight 81.511 kg 84.4 kg 84.4 kg Intake: IV 100 Intake, IV Titration 350 100 Amount Sodium Chloride 0.9% 1, 350 100 000 ml @ 50 mls/hr IV . Q20H [facility] Rx#:[id number] Oral 1050 300 Output: Urine 200 1200 300 ABP, PAP, CO, CI - Last Documented Arterial Blood Pressure 132/50 - Labs CBC & Chem 7: 04/10/20 05:28 04/10/20 05:28 Labs: Abnormal Lab Results - Last 24 Hours (Table) 04/09/20 04/09/20 04/09/20 Range/Units 11:15 11:15 11:15 RBC (4.30-5.90) m/uL Hgb (13.0-17.5) gm/dL Hct (39.0-53.0) % Sodium (137-145) mmol/L BUN 25 H (9-20) mg/dL Glucose 162 H (74-99) mg/dL POC Glucose (mg/dL) (75-99) mg/dL Hemoglobin A1c 7.0 H (4.0-6.0) % AST 78 H (17-59) U/L Troponin I 2.660 H* (0.000-0.034) ng/mL 04/09/20 04/09/20 04/09/20 Range/Units 12:32 17:11 21:14 RBC (4.30-5.90) m/uL Hgb (13.0-17.5) gm/dL Hct (39.0-53.0) % Sodium (137-145) mmol/L BUN (9-20) mg/dL Glucose (74-99) mg/dL POC Glucose (mg/dL) 135 H 120 H 177 H (75-99) mg/dL Hemoglobin A1c (4.0-6.0) % AST (17-59) U/L Troponin I (0.000-0.034) ng/mL 04/10/20 04/10/20 04/10/20 Range/Units 05:28 05:28 06:59 RBC 3.94 L (4.30-5.90) m/uL Hgb 11.6 L (13.0-17.5) gm/dL Hct 36.5 L (39.0-53.0) % Sodium 136 L (137-145) mmol/L BUN 23 H (9-20) mg/dL Glucose 160 H (74-99) mg/dL POC Glucose (mg/dL) 133 H (75-99) mg/dL Hemoglobin A1c (4.0-6.0) % AST (17-59) U/L Troponin I (0.000-0.034) ng/mL 04/10/20 Range/Units 11:47 RBC (4.30-5.90) m/uL Hgb (13.0-17.5) gm/dL Hct (39.0-53.0) % Sodium (137-145) mmol/L BUN (9-20) mg/dL Glucose (74-99) mg/dL POC Glucose (mg/dL) 110 H (75-99) mg/dL Hemoglobin A1c (4.0-6.0) % AST (17-59) U/L Troponin I (0.000-0.034) ng/mL
--- NOTE | 2020-04-10 14:08 | P.PN ---
Subjective Progress Note Date: 04/10/20 Patient is doing well today. Denies any chest pain. 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 Objective - Vital Signs Vital signs: Vital Signs Temp 98.8 F 04/10/20 08:00 Pulse 69 04/10/20 08:00 Resp 20 04/10/20 08:00 BP 116/60 04/10/20 08:00 Pulse Ox 96 04/10/20 08:00 Intake & Output 04/09/20 04/10/20 04/10/20 18:59 06:59 18:59 Intake Total 450 1150 300 Output Total 200 1200 300 Balance 250 -50 0 Weight 81.511 kg 84.4 kg 84.4 kg Intake: IV 100 Intake, IV Titration 350 100 Amount Sodium Chloride 0.9% 1, 350 100 000 ml @ 50 mls/hr IV . Q20H [facility] Rx#:[id number] Oral 1050 300 Output: Urine 200 1200 300 ABP, PAP, CO, CI - Last Documented Arterial Blood Pressure 132/50 - Exam General: The patient is awake and alert, in no distress Eye: there is normal conjunctiva bilaterally. Neck: The neck is supple, there is no JVD. Cardiovascular: Normal S1-S2, no S3-S4, no murmurs. Respiratory: Lungs clear to auscultation bilaterally Gastrointestinal: Abdomen is soft, nontender Musculoskeletal: There is no pedal edema. Neurological:. Speech is normal. Skin: Skin is warm and dry - Labs CBC & Chem 7: 04/10/20 05:28 04/10/20 05:28 Labs: Abnormal Lab Results - Last 24 Hours (Table) 04/09/20 04/09/20 04/09/20 Range/Units 11:15 17:11 21:14 RBC (4.30-5.90) m/uL Hgb (13.0-17.5) gm/dL Hct (39.0-53.0) % Sodium (137-145) mmol/L BUN (9-20) mg/dL Glucose (74-99) mg/dL POC Glucose (mg/dL) 120 H 177 H (75-99) mg/dL Hemoglobin A1c 7.0 H (4.0-6.0) % 04/10/20 04/10/20 04/10/20 Range/Units 05:28 05:28 06:59 RBC 3.94 L (4.30-5.90) m/uL Hgb 11.6 L (13.0-17.5) gm/dL Hct 36.5 L (39.0-53.0) % Sodium 136 L (137-145) mmol/L BUN 23 H (9-20) mg/dL Glucose 160 H (74-99) mg/dL POC Glucose (mg/dL) 133 H (75-99) mg/dL Hemoglobin A1c (4.0-6.0) % 04/10/20 Range/Units 11:47 RBC (4.30-5.90) m/uL Hgb (13.0-17.5) gm/dL Hct (39.0-53.0) % Sodium (137-145) mmol/L BUN (9-20) mg/dL Glucose (74-99) mg/dL POC Glucose (mg/dL) 110 H (75-99) mg/dL Hemoglobin A1c (4.0-6.0) % Assessment and Plan Assessment: This is a 64-year-old male who presented to the emergency room with chest pain. Patient was evaluated for further management of his medical problems noted below. 1. ST elevation [place]: Status post left heart catheterization with successful stent placement to the RCA. On optimal medical management per cardiology or ders. Dual antiplatelet therapy. Echocardiogram revealed EF of 45-50%. No significant valvular abnormalities. 2. Coronary artery disease with prior stent placement in the left circumflex and LAD 3. Mixed hyperlipidemia on Lipitor 4. Type 2 diabetes: Hold metformin and continue sliding scale insulin 5. Essential hypertension: Blood pressure within acceptable range. Home dose of hydrochlorothiazide discontinue 6. DVT prophylaxis with SCDs Today, I reviewed his medication list and lab work results. Continue current regimen. May transfer out of the ICU. Anticipate discharge home tomorrow.
[2020-04-10 16:36] LABS: Glucose,Whole Blood 151 mg/dL (75-99)
[2020-04-10] MEDS: ATORVASTATIN 80 MG TAB PO SCH (20:32)
[2020-04-10 20:33] LABS: Glucose,Whole Blood 115 mg/dL (75-99)
[2020-04-11 05:38] LABS: Basophils % (A) 0 %; Eosinophils # (A) 0.2 k/uL (0-0.7); Eosinophils % (A) 3 %; HCT 41.2 % (39.0-53.0); Lymphocytes # (A) 1.5 k/uL (1.0-4.8); Lymphocytes % (A) 21 %; MCH 29.4 pg (25.0-35.0); MCHC 31.6 g/dL (31.0-37.0); MCV 93.1 fL (80.0-100.0); Mean Platelet Volume 7.1; Monocytes # (A) 0.6 k/uL (0-1.0); Monocytes % (A) 8 %; Neutrophils # (A) 4.9 k/uL (1.3-7.7); Neutrophils % (A) 67 %; Platelet Count 184 k/uL (150-450); RBC 4.42 m/uL (4.30-5.90); RDW 13.6 % (11.5-15.5); WBC 7.4 k/uL (3.8-10.6)
[2020-04-11 05:55] LABS: African American GFR (CKD) >90 (>60 ml/min/1.73 sqM); Anion Gap 4 mmol/L; Blood Urea Nitrogen 24 mg/dL (9-20); Calcium 8.9 mg/dL (8.4-10.2); Carbon Dioxide 25 mmol/L (22-30); Chloride 109 mmol/L (98-107); Glucose 106 mg/dL (74-99); Magnesium 2.1 mg/dL (1.6-2.3); Non-African American GFR(CKD) >90 (>60 ml/min/1.73 sqM); Potassium 4.2 mmol/L (3.5-5.1); Sodium 138 mmol/L (137-145)
[2020-04-11 06:41] LABS: Glucose,Whole Blood 109 mg/dL (75-99)
[2020-04-11] MEDS: INSULIN ASPART (NovoLOG) 100 UNIT/ML VIAL SQ SCH ×2 (07:19→12:04)
[2020-04-11] MEDS: METOPROLOL TARTRATE 50 MG TAB PO SCH (09:12)
[2020-04-11] MEDS: ASPIRIN 81 MG PO SCH (09:12)
[2020-04-11] MEDS: HEPARIN SODIUM,PORCINE 5,000 UNIT/ML 1 ML VIAL SQ SCH (09:12)
[2020-04-11] MEDS: TICAGRELOR 90 MG TAB PO SCH (09:12)
--- NOTE | 2020-04-11 09:50 | P.PN ---
Subjective Progress Note Date: 04/11/20 Patient is doing well today. Denies any chest pain. 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 Objective - Vital Signs Vital signs: Vital Signs Temp 98.5 F 04/11/20 03:00 Pulse 58 L 04/11/20 06:00 Resp 16 04/11/20 06:00 BP 111/64 04/11/20 06:00 Pulse Ox 97 04/10/20 16:00 Intake & Output 04/10/20 04/11/20 04/11/20 18:59 06:59 18:59 Intake Total 1500 150 Output Total 300 800 200 Balance 1200 -650 -200 Weight 84.4 kg 84 kg Intake: Intake, IV Titration 100 Amount Magnesium Sulfate-D5w Pmx 100 1 gm In Dextrose/Water 1 100ml.bag @ 100 mls/hr IVPB ONCE ONE Rx#: [id number] Oral 1400 150 Output: Urine 300 800 200 Other: # Voids 1 # Bowel Movements 1 ABP, PAP, CO, CI - Last Documented Arterial Blood Pressure 132/50 - Exam General: The patient is awake and alert, in no distress Eye: there is normal conjunctiva bilaterally. Neck: The neck is supple, there is no JVD. Cardiovascular: Normal S1-S2, no S3-S4, no murmurs. Respiratory: Lungs clear to auscultation bilaterally Gastrointestinal: Abdomen is soft, nontender Musculoskeletal: There is no pedal edema. Neurological:. Speech is normal. Skin: Skin is warm and dry - Labs CBC & Chem 7: 04/11/20 05:27 04/11/20 05:27 Labs: Abnormal Lab Results - Last 24 Hours (Table) 04/10/20 04/10/20 04/10/20 Range/Units 11:47 16:34 20:32 Chloride (98-107) mmol/L BUN (9-20) mg/dL Glucose (74-99) mg/dL POC Glucose (mg/dL) 110 H 151 H 115 H (75-99) mg/dL 04/11/20 04/11/20 Range/Units 05:27 06:40 Chloride 109 H (98-107) mmol/L BUN 24 H (9-20) mg/dL Glucose 106 H (74-99) mg/dL POC Glucose (mg/dL) 109 H (75-99) mg/dL Assessment and Plan Assessment: This is a 64-year-old male who presented to the emergency room with chest pain. Patient was evaluated for further management of his medical problems noted below. 1. ST elevation [place]: Status post left heart catheterization with successful stent placement to the RCA. On optimal medical management per cardiology orders. Dual antiplatelet therapy. Echocardiogram revealed EF of 45-50%. No significant valvular abnormalities. 2. Coronary artery disease with prior stent placement in the left circumflex and LAD 3. Mixed hyperlipidemia on Lipitor 4. Type 2 diabetes: Hold metformin and continue sliding scale insulin 5. Essential hypertension: Blood pressure within acceptable range. Home dose of hydrochlorothiazide discontinued 6. DVT prophylaxis with SCDs Today, I reviewed his medication list and lab work results. Continue current regimen. May transfer out of the ICU. Discharge planning tomorrow per cardiology recommendation
--- NOTE | 2020-04-11 10:07 | P.DS ---
Providers Date of admission: 04/09/20 11:16 Expected date of discharge: 04/11/20 Attending physician: Mally Fitzgerald MD Consults: 04/09/20 12:11 Consult Physician Routine Consulting Provider: [facility] Consult Reason/Comments: Post Interventional patient Do you want consulting provider notified?: Already Contacted Primary care physician: [facility] Hospital Course: This is a 64-year-old male who presented to the emergency room with chest pain. Patient was evaluated for further management of his medical problems noted below. 1. ST elevation [place]: Status post left heart catheterization with successful stent placement to the RCA. On optimal medical management per cardiology orders. Dual antiplatelet therapy. Echocardiogram revealed EF of 45-50%. No significant valvular abnormalities. 2. Coronary artery disease with prior stent placement in the left circumflex and LAD 3. Mixed hyperlipidemia on Lipitor 4. Type 2 diabetes: Resume home dose of metformin 5. Essential hypertension: Blood pressure within acceptable range. Home dose of hydrochlorothiazide discontinued Patient was cleared by cardiology for discharge. At to discontinue Plavix and continue Brillenta. Prescription sent to his pharmacy. Follow-up with cardiology as directed Patient will be discharged home in a stable condition. For further details about this hospitalization please refer to the electronic chart. Patient Condition at Discharge: Stable Plan - Discharge Summary Discharge Rx Participant: Yes New Discharge Prescriptions: New Ticagrelor [Brilinta] 90 mg PO BID #60 tab Continue metFORMIN HCL 1,000 mg PO BID-W/MEALS Atorvastatin [Lipitor] 80 mg PO HS #30 tab Metoprolol Tartrate [Lopressor] 50 mg PO BID #60 tab Nitroglycerin Sl Tabs [Nitrostat] 0.4 mg SUBLINGUAL Q5M PRN #25 tab PRN Reason: Chest Pain Aspirin EC [Ecotrin Low Dose] 81 mg PO DAILY Lisinopril [Prinivil] 10 mg PO DAILY Discontinued Clopidogrel [Plavix] 75 mg PO DAILY hydroCHLOROthiazide [Hydrodiuril] 12.5 mg PO DAILY Discharge Medication List metFORMIN HCL 1,000 mg PO BID-W/MEALS 08/18/16 [History] Atorvastatin [Lipitor] 80 mg PO HS #30 tab 08/19/16 [Rx] Metoprolol Tartrate [Lopressor] 50 mg PO BID #60 tab 08/19/16 [Rx] Nitroglycerin Sl Tabs [Nitrostat] 0.4 mg SUBLINGUAL Q5M PRN #25 tab 08/19/16 [Rx] Aspirin EC [Ecotrin Low Dose] 81 mg PO DAILY 01/13/20 [History] Lisinopril [Prinivil] 10 mg PO DAILY 04/09/20 [History] Ticagrelor [Brilinta] 90 mg PO BID #60 tab 04/11/20 [Rx] Follow up Appointment(s)/Referral(s): Jean Monroy MD [STAFF PHYSICIAN] - 1 Week (Please contact the office Sunday morning (04/12/2020) to schedule a follow up appointment within 1 week.) Ruperto Richardson [Primary Care Provider] - 1-2 days (Please contact the office Sunday (04/12/2020) to schedule a follow up appointment within 1-2 days.) Discharge Disposition: HOME SELF-CARE
--- NOTE | 2020-04-11 11:58 | P.PN ---
Subjective This is Bernadine Casey PA-C dictating a progress note on this patient The patient was interviewed and examined by me as well as by Dr. Lopez Case discussed with Dr. Lopez and he agrees with the plan of care HPI/interval history Patient is a 64-year-old male with a history of CAD status post stenting to the RCA and left circumflex, diabetes, and hypertension who presented with an acute inferior wall ST elevation [place]. 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 He was found to have a patent stent to the proximal left circumflex, proximal stent to the LAD, 30% lesion of the mid LAD, RCA with critical in-stent restenosis and he subsequently underwent successful stenting. Yesterday we stopped his hydrochlorothiazide and his blood pressure has remained low normal. Telemetry reveals sinus mechanism with heart rates in the high 80s to low 90s currently. He just received his morning dose of metoprolol. Overnight his heart rates were in the 50s and 60s. No NSVT noted on telemetry. Patient seen and examined sitting in the chair. He has been able to get up and walk around. No further chest discomfort. No shortness of breath. No dizziness. EXAMINATION Patient is afebrile, pulse in the 90s, respirations 16, blood pressure 111/64 Patient seen and examined sitting in the chair, in no acute distress Heart is regular, no audible murmurs Lungs clear to auscultation bilaterally No lower extremity edema REVIEW OF LABS, ECG WBC 7.4, hemoglobin 13.0, platelets 184, potassium 4.9, BUN 24, creatinine 0.74, magnesium 2.1 IMPRESSION / ASSESSMENT: #1 acute inferior wall [place] status post successful stenting to the RCA #2 triple-vessel CAD with recent catheterization showing patent stents to the LAD and left circumflex #3 ischemic cardiomyopathy #4 hypertension #5 diabetes PLAN: Continue the current medication regimen including metoprolol 50 mg twice a day, lisinopril 10 mg at noon, dual antiplatelet therapy and high-dose statins Patient to follow-up with 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 Monroy within 1 week discharge Objective - Vital Signs Vital signs: Vital Signs Temp 98.5 F 04/11/20 03:00 Pulse 58 L 04/11/20 06:00 Resp 16 04/11/20 06:00 BP 111/64 04/11/20 06:00 Pulse Ox 97 04/10/20 16:00 Intake & Output 04/10/20 04/11/20 04/11/20 18:59 06:59 18:59 Intake Total 1500 150 Output Total 300 800 200 Balance 1200 -650 -200 Weight 84.4 kg 84 kg Intake: Intake, IV Titration 100 Amount Magnesium Sulfate-D5w Pmx 100 1 gm In Dextrose/Water 1 100ml.bag @ 100 mls/hr IVPB ONCE ONE Rx#: [id number] Oral 1400 150 Output: Urine 300 800 200 Other: # Voids 1 # Bowel Movements 1 ABP, PAP, CO, CI - Last Documented Arterial Blood Pressure 132/50 - Labs CBC & Chem 7: 04/11/20 05:27 04/11/20 05:27 Labs: Abnormal Lab Results - Last 24 Hours (Table) 04/10/20 04/10/20 04/11/20 Range/Units 16:34 20:32 05:27 Chloride 109 H (98-107) mmol/L BUN 24 H (9-20) mg/dL Glucose 106 H (74-99) mg/dL POC Glucose (mg/dL) 151 H 115 H (75-99) mg/dL 04/11/20 Range/Units 06:40 Chloride (98-107) mmol/L BUN (9-20) mg/dL Glucose (74-99) mg/dL POC Glucose (mg/dL) 109 H (75-99) mg/dL
[2020-04-11 11:59] LABS: Glucose,Whole Blood 156 mg/dL (75-99)
[2020-04-11] MEDS: lisinopriL 10 MG TAB PO SCH (12:04)
[2020-04-11 13:19] VITALS: BP 101/86; PULSE 67; RESP 26; TEMP 98.4
== END 2020-04-11 15:00 | disposition home or self-care (01) | DRG 247 ==
LOC: SUPCPDRO 11:07 → EC 11:07 → 2SICU 11:16
PROVIDERS: ADMIT Family Medicine; ATTEND Family Medicine
PROC: 027034Z Dilation of Coronary Artery, One Artery with Drug-eluting Intraluminal Device, Percutaneous Approach (ICD-10-PCS; principal; 2020-04-09 11:17)
PROC: 4A023N7 Measurement of Cardiac Sampling and Pressure, Left Heart, Percutaneous Approach (ICD-10-PCS; principal; 2020-04-09 11:17)
PROC: B2111ZZ Fluoroscopy of Multiple Coronary Arteries using Low Osmolar Contrast (ICD-10-PCS; 2020-04-09 11:17)
DX: I21.19 ST elevation (STEMI) myocardial infarction involving other coronary artery of inferior wall (principal); T82.855A Stenosis of coronary artery stent, initial encounter; I11.9 Hypertensive heart disease without heart failure; E11.9 Type 2 diabetes mellitus without complications; I25.5 Ischemic cardiomyopathy; E78.2 Mixed hyperlipidemia; I25.10 Atherosclerotic heart disease of native coronary artery without angina pectoris; I25.2 Old myocardial infarction; E78.00 Pure hypercholesterolemia, unspecified; E66.9 Obesity, unspecified; Z68.28 Body mass index [BMI] 28.0-28.9, adult; Z79.82 Long term (current) use of aspirin; Z79.02 Long term (current) use of antithrombotics/antiplatelets; Z79.84 Long term (current) use of oral hypoglycemic drugs; Z79.899 Other long term (current) drug therapy; Z71.3 Dietary counseling and surveillance; Z95.5 Presence of coronary angioplasty implant and graft; Y83.1 Surgical operation with implant of artificial internal device as the cause of abnormal reaction of the patient, or of later complication, without mention of misadventure at the time of the procedure; Z83.3 Family history of diabetes mellitus; Z82.49 Family history of ischemic heart disease and other diseases of the circulatory system; Z84.1 Family history of disorders of kidney and ureter
CPT/HCPCS: 36415; 80048; 80053; 83036; 83735; 84484; 85025; 85610; 85730; 93005; 93306; 93458; 96374; 99291

== ENCOUNTER → 2020-11-16 | Outpatient (CLI) | payer OTHER | END | disposition home or self-care (01) | LOC: LABWHC1 15:46 | PROVIDERS: ATTEND Family Medicine | DX: Z20.822 Contact with and (suspected) exposure to COVID-19 (principal) | CPT/HCPCS: U0003; C9803 ==

== ENCOUNTER → 2021-06-27 | Outpatient (CLI) | payer OTHER ==
[2021-06-27 14:57] LABS: ALT 19 U/L (10-49); AST 21 U/L (14-35); African American GFR (CKD) 105.5 (60.0-200.0); Albumin/Globulin Ratio 1.27 (1.60-3.17); Alkaline Phosphatase 85 U/L (41-126); BUN/Creat Ratio 24.22 Ratio (12.00-20.00); Blood Urea Nitrogen 20.1 mg/dL (9.0-27.0); Calcium 9.2 mg/dL (8.7-10.3); Carbon Dioxide 21.1 mmol/L (20.0-27.5); Chloride 107 mmol/L (96-109); Chol/HDL Ratio 2.69 Ratio; Globulin 3.1 g/dL (1.6-3.3); Glucose 126 mg/dL (70-110); LDL Cholesterol,Calculated 73.6 mg/dL (0.0-131.0); Magnesium 1.9 mg/dL (1.5-2.4); Non-African American GFR(CKD) 91.1 (60.0-200.0); Potassium 4.4 mmol/L (3.5-5.5); Sodium 140 mmol/L (135-145); Total Protein 7.1 g/dL (6.2-8.2)
== END | disposition home or self-care (01) ==
LOC: LABWHC1 09:16
PROVIDERS: ATTEND Nurse Practitioner Adult Health
DX: I10 Essential (primary) hypertension (principal); E11.9 Type 2 diabetes mellitus without complications; E78.2 Mixed hyperlipidemia
CPT/HCPCS: 36415; 80053; 80061; 83721; 83735

== ENCOUNTER 2021-09-28 14:02 | Emergency (ER) | payer OTHER, MEDICARE ==
[2021-09-28] MEDS ORDERED: SODIUM CHLORIDE 0.9% 1,000 ML IV STA (14:23)
[2021-09-28 15:13] LABS: Basophils % (A) 0 %; Eosinophils # (A) 0.1 k/uL (0-0.7); Eosinophils % (A) 2 %; HCT 39.2 % (39.0-53.0); HGB 12.9 gm/dL (13.0-17.5); Lymphocytes # (A) 0.9 k/uL (1.0-4.8); Lymphocytes % (A) 15 %; MCHC 32.9 g/dL (31.0-37.0); MCV 91.2 fL (80.0-100.0); Mean Platelet Volume 7.3; Monocytes # (A) 0.4 k/uL (0-1.0); Monocytes % (A) 7 %; Neutrophils # (A) 4.2 k/uL (1.3-7.7); Neutrophils % (A) 74 %; Platelet Count 250 k/uL (150-450); RDW 13.9 % (11.5-15.5); WBC 5.7 k/uL (3.8-10.6)
[2021-09-28 15:22] LABS: ALT 30 U/L (4-49); AST 28 U/L (17-59); African American GFR (CKD) >90 (>60 ml/min/1.73 sqM); Albumin 3.1 g/dL (3.5-5.0); Alkaline Phosphatase 85 U/L (38-126); Anion Gap 6 mmol/L; Blood Urea Nitrogen 31 mg/dL (9-20); Calcium 8.2 mg/dL (8.4-10.2); Carbon Dioxide 24 mmol/L (22-30); Chloride 107 mmol/L (98-107); Glucose 146 mg/dL (74-99); Non-African American GFR(CKD) >90 (>60 ml/min/1.73 sqM); Potassium 4.8 mmol/L (3.5-5.1); Sodium 137 mmol/L (137-145); Total Bilirubin 0.5 mg/dL (0.2-1.3)
[2021-09-28 15:30] LABS: Partial Thromboplastin Time 24.2 sec (22.0-30.0)
[2021-09-28 16:00] VITALS: TEMP 97.8
[2021-09-28 16:02] LABS: Appearance,Urine Cloudy (Clear); Bacteria,Urine Rare /hpf; Bilirubin,Urine Negative (Negative); Blood,Urine Negative (Negative); Color,Urine Yellow; Glucose,Urine (UA) Negative (Negative); Hyaline Casts,Urine 1 /lpf (0-2); Ketones,Urine Negative (Negative); Leukocyte Esterase,Urine Large (Negative); Mucus,Urine Occasional /hpf; Nitrite,Urine Negative (Negative); PH, Urine 6.5 (5.0-8.0); Protein,Urine Negative (Negative); RBC,Urine 8 /hpf (0-5); Specific Gravity,Urine 1.021 (1.001-1.035); Squamous Epithelial Cell,Urine 1 /hpf (0-4); Urobilinogen,Urine <2.0 mg/dL (<2.0); WBC,Urine 168 /hpf (0-5)
--- NOTE | 2021-09-28 16:11 | ED ---
General Adult HPI - General Chief complaint: Weakness Stated complaint: Dizziness Source: patient, EMS Mode of arrival: EMS Limitations: no limitations - History of Present Illness Initial comments: 65-year-old male with past medical history of diabetes, hypertension presents to the emergency department with presyncope. States that he was diagnosed with cold that approximately 2 weeks ago. He had been seen at [facility] and was given the antibody infusion. States that since his illness he has had shortness of breath and presyncopal sensation especially upon standing. Patient was vaccinated against coven at the time. He denies any chest pain. No lower extremity edema. No history of DVT or PE. He denies any syncopal episodes. Has had a nonproductive cough no recent medication changes. Today the patient got extremely dizzy and had to grab onto some furniture. His called EMS. He denies any fevers. No hemoptysis. No abdominal pain. No other alleviating, precipitating or modifying factors - Related Data Home Medications Medication Instructions Recorded Confirmed metFORMIN HCL [Glucophage] 1,000 mg PO BID 08/18/16 09/28/21 Aspirin EC [Ecotrin Low Dose] 81 mg PO DAILY 01/13/20 09/28/21 Lisinopril [Prinivil] 10 mg PO DAILY 04/09/20 09/28/21 Nitroglycerin Sl Tabs [Nitrostat] 0.4 mg SL Q5M PRN 09/28/21 09/28/21 Spironolactone 25 mg PO DAILY 09/28/21 09/28/21 Previous Rx's Medication Instructions Recorded Atorvastatin [Lipitor] 80 mg PO HS #30 tab 08/19/16 Metoprolol Tartrate [Lopressor] 50 mg PO BID #60 tab 08/19/16 Albuterol Sulfate [Proair Hfa] 1 - 2 puff INHALATION Q4HR PRN 09/28/21 #8.5 gm Blood Sugar Diagnostic [Glucose 1 each MC BID #60 strip 09/28/21 Test Strip] Cephalexin [Keflex] 500 mg PO Q6HR #28 cap 09/28/21 Dexamethasone [Decadron] 6 mg PO DAILY #5 tablet 09/28/21 Allergies Allergy/AdvReac Type Severity Reaction Status Date / Time No Known Allergies Allergy Verified 09/28/21 14:14 Review of Systems ROS Statement: Those systems with pertinent positive or pertinent negative responses have been documented in the HPI. ROS Other: All systems not noted in ROS Statement are negative. Past Medical History Past Medical History: Diabetes Mellitus, Hyperlipidemia, Hypertension, M yocardial Infarction ([place]) Last Myocardial Infarction Date:: 2016 History of Any Multi-Drug Resistant Organisms: None Reported Past Surgical History: Heart Catheterization With Stent Past Anesthesia/Blood Transfusion Reactions: No Reported Reaction Date of Last Stent Placement:: 2016 Past Psychological History: No Psychological Hx Reported Smoking Status: Never smoker Past Alcohol Use History: None Reported Past Drug Use History: Marijuana - Past Family History Mother Family Medical History: Diabetes Mellitus, Hypertension, Myocardial Infarction ([place]) Additional Family Medical History / Comment(s): 5/7 children have diabetes Sister(s) Family Medical History: Diabetes Mellitus, Renal Disease Additional Family Medical History / Comment(s): Sis x 3. Elizabeth: Fibro. Nicole: ? DM. Jada: ?DM Brother(s) Family Medical History: Coronary Artery Disease (CAD), Diabetes Mellitus Additional Family Medical History / Comment(s): prosthesis x 2, passed due to [place] years ago General Exam Limitations: no limitations Course Vital Signs 09/28/21 09/28/21 14:05 15:56 Temperature 98.2 F 97.8 F Pulse Rate 76 Pulse Rate [ 89 Right Sitting Pulse Oximetery ] Pulse Rate [ 74 Right Supine Pulse Oximetery ] Respiratory 18 20 Rate Blood Pressure 135/70 Blood Pressure 135/76 [Left Arm Sitting] Blood Pressure 117/76 [Left Arm Standing] Blood Pressure 130/69 [Right Arm Supine] O2 Sat by Pulse 98 99 Oximetry EKG Findings - EKG Comments: EKG Findings:: EKG demonstrates sinus rhythm with a rate of 83. LA interval 100. QRS 105. QTC of 442. No acute ST segment elevations or depressions Medical Decision Making - Medical Decision Making Upon arrival patient was placed into room 26. A thorough history and physical exam was performed. IV access was established and the patient was given a liter bolus of normal saline. Orthostatics were completed. Patient had a mild drop in his blood pressure from sitting to standing. Laboratory studies were conducted which demonstrates a d-dimer of 0.99. Urinalysis is positive for 160 white blood cells, few white blood cell clumps with rare bacteria. Patient is given a dose of Rocephin. He is ambulated from the emergency department and is able to maintain his oxygenation of 99%. Patient sent for CT of his chest due to elevated d-dimer which does not demonstrate a PE however there is evidence of extensive interstitial peripheral pulmonary infiltrates consistent with multifocal pneumonia. These results are discussed the patient. Patient is given a dose of Decadron. Will be discharged home on Keflex, albuterol inhaler and Decadron. Instructed that he must check his sugars closely while on the Decadron. I did write him for more test strips for his meter. Like him to follow up with pulmonology which the patient did agree to. He remained in stable condition and was discharged home - Lab Data Result diagrams: 09/28/21 14:53 09/28/21 14:53 Lab Results 09/28/21 09/28/21 09/28/21 Range/Units 14:53 14:53 14:53 WBC 5.7 (3.8-10.6) k/uL RBC 4.30 (4.30-5.90) m/uL Hgb 12.9 L (13.0-17.5) gm/dL Hct 39.2 (39.0-53.0) % MCV 91.2 (80.0-100.0) fL MCH 30.0 (25.0-35.0) pg MCHC 32.9 (31.0-37.0) g/dL RDW 13.9 (11.5-15.5) % Plt Count 250 (150-450) k/uL MPV 7.3 Neutrophils % 74 % Lymphocytes % 15 % Monocytes % 7 % Eosinophils % 2 % Basophils % 0 % Neutrophils # 4.2 (1.3-7.7) k/uL Lymphocytes # 0.9 L (1.0-4.8) k/uL Monocytes # 0.4 (0-1.0) k/uL Eosinophils # 0.1 (0-0.7) k/uL Basophils # 0.0 (0-0.2) k/uL PT 11.0 (9.0-12.0) sec INR 1.0 (<1.2) APTT 24.2 (22.0-30.0) sec D-Dimer 0.99 H (<0.60) mg/L FEU Sodium (137-145) mmol/L Potassium (3.5-5.1) mmol/L Chloride (98-107) mmol/L Carbon Dioxide (22-30) mmol/L Anion Gap mmol/L BUN (9-20) mg/dL Creatinine (0.66-1.25) mg/dL Est GFR (CKD-EPI)AfAm (>60 ml/min/1.73 sqM) Est GFR (CKD-EPI)NonAf (>60 ml/min/1.73 sqM) Glucose (74-99) mg/dL Calcium (8.4-10.2) mg/dL Magnesium (1.6-2.3) mg/dL Total Bilirubin (0.2-1.3) mg/dL AST (17-59) U/L ALT (4-49) U/L Alkaline Phosphatase (38-126) U/L Troponin I (0.000-0.034) ng/mL Total Protein (6.3-8.2) g/dL Albumin (3.5-5.0) g/dL Urine Color Yellow Urine Appearance Cloudy (Clear) Urine pH 6.5 (5.0-8.0) Ur Specific Cove 1.021 (1.001-1.035) Urine Protein Negative (Negative) Urine Glucose (UA) Negative (Negative) Urine Ketones Negative (Negative) Urine Blood Negative (Negative) Urine Nitrite Negative (Negative) Urine Bilirubin Negative (Negative) Urine Urobilinogen <2.0 (<2.0) mg/dL Ur Leukocyte Esterase Large H (Negative) Urine RBC 8 H (0-5) /hpf Urine WBC 168 H (0-5) /hpf Urine WBC Clumps Few H (None) /hpf Ur Squamous Epith Cells 1 (0-4) /hpf Urine Bacteria Rare H (None) /hpf Hyaline Casts 1 (0-2) /lpf Urine Mucus Occasional H (None) /hpf 09/28/21 09/28/21 Range/Units 14:53 14:53 WBC (3.8-10.6) k/uL RBC (4.30-5.90) m/uL Hgb (13.0-17.5) gm/dL Hct (39.0-53.0) % MCV (80.0-100.0) fL MCH (25.0-35.0) pg MCHC (31.0-37.0) g/dL RDW (11.5-15.5) % Plt Count (150-450) k/uL MPV Neutrophils % % Lymphocytes % % Monocytes % % Eosinophils % % Basophils % % Neutrophils # (1.3-7.7) k/uL Lymphocytes # (1.0-4.8) k/uL Monocytes # (0-1.0) k/uL Eosinophils # (0-0.7) k/uL Basophils # (0-0.2) k/uL PT (9.0-12.0) sec INR (<1.2) APTT (22.0-30.0) sec D-Dimer (<0.60) mg/L FEU Sodium 137 (137-145) mmol/L Potassium 4.8 (3.5-5.1) mmol/L Chloride 107 (98-107) mmol/L Carbon Dioxide 24 (22-30) mmol/L Anion Gap 6 mmol/L BUN 31 H (9-20) mg/dL Creatinine 0.79 (0.66-1.25) mg/dL Est GFR (CKD-EPI)AfAm >90 (>60 ml/min/1.73 sqM) Est GFR (CKD-EPI)NonAf >90 (>60 ml/min/1.73 sqM) Glucose 146 H (74-99) mg/dL Calcium 8.2 L (8.4-10.2) mg/dL Magnesium 2.0 (1.6-2.3) mg/dL Total Bilirubin 0.5 (0.2-1.3) mg/dL AST 28 (17-59) U/L ALT 30 (4-49) U/L Alkaline Phosphatase 85 (38-126) U/L Troponin I <0.012 (0.000-0.034) ng/mL Total Protein 7.0 (6.3-8.2) g/dL Albumin 3.1 L (3.5-5.0) g/dL Urine Color Urine Appearance (Clear) Urine pH (5.0-8.0) Ur Specific Cove (1.001-1.035) Urine Protein (Negative) Urine Glucose (UA) (Negative) Urine Ketones (Negative) Urine Blood (Negative) Urine Nitrite (Negative) Urine Bilirubin (Negative) Urine Urobilinogen (<2.0) mg/dL Ur Leukocyte Esterase (Negative) Urine RBC (0-5) /hpf Urine WBC (0-5) /hpf Urine WBC Clumps (None) /hpf Ur Squamous Epith Cells (0-4) /hpf Urine Bacteria (None) /hpf Hyaline Casts (0-2) /lpf Urine Mucus (None) /hpf Disposition Clinical Impression: Pre-syncope, COVID-19, UTI (urinary tract infection) Disposition: HOME SELF-CARE Condition: Stable Instructions (If sedation given, give patient instructions): Urinary Tract Infection in Men (ED), COVID-19 (Coronavirus Disease 2019) (ED) Additional Instructions: Please take the steroids and antibiotics as directed. Use the inhaler every 4 hours for shortness of breath. Follow up with the supervisor grounds for further evaluation of your lungs. Check your glucose level everyday. Return for any new or worsening symptoms Prescriptions: Dexamethasone [Decadron] 6 mg PO DAILY #5 tablet Blood Sugar Diagnostic [Glucose Test Strip] 1 each MC BID #60 strip Cephalexin [Keflex] 500 mg PO Q6HR #28 cap Albuterol Sulfate [Proair Hfa] 1 - 2 puff INHALATION Q4HR PRN #8.5 gm PRN Reason: difficulty in breathing Is patient prescribed a controlled substance at d/c from ED?: No Referrals: Ruperto Richardson [Primary Care Provider] - 1-2 days Marc Cueto MD [STAFF PHYSICIAN] - 1-2 days Time of Disposition: 17:50
[2021-09-28] MEDS ORDERED: cefTRIAXone IN SWFI 1,000 MG/10 ML SYRINGE IVP STA (17:04)
--- NOTE | 2021-09-28 17:08 | CT ---
EXAMINATION TYPE: CT chest angio for PE DATE OF EXAM: 09/28/2021 COMPARISON: Chest CT scan 10/21/2010 HISTORY: Dizziness CT DLP: 608 mGycm Automated exposure control for dose reduction was used. CONTRAST: Performed with IV Contrast, patient injected with 100, wasted 20 ml mL of Isovue 370. There are Three-D postprocessed images. There is patchy subpleural reticular moderate infiltrates in both lung dale. These are peripheral a nd no discrete mass identified. Heart size is normal. There is no pericardial effusion. There is no p leural effusion. There is no mediastinal adenopathy. Thoracic aorta is intact. There is no aneurysm or dissection. The re are no hilar masses. There is normal contrast opacification of the pulmonary arteries. There are no filling defects. The t horacic spine is intact. There is no compression fracture. Sternum is intact. IMPRESSION: No evidence of pulmonary embolism. Extensive interstitial peripheral pulmonary infiltrates consistent with multifocal pneumonia which is mostly new compared to old exam.
[2021-09-28] MEDS ORDERED: DEXAMETHASONE SOD PHOSPHATE 10 MG/ML 1 ML VIAL IVP STA (17:46)
[2021-09-28 18:24] VITALS: BP 124/72; PULSE 78; RESP 18
== END 2021-09-28 18:21 | disposition home or self-care (01) ==
LOC: EC 14:02
DX: R55 Syncope and collapse (principal); U07.1 COVID-19; N39.0 Urinary tract infection, site not specified; E11.9 Type 2 diabetes mellitus without complications; I10 Essential (primary) hypertension; I25.2 Old myocardial infarction; E78.5 Hyperlipidemia, unspecified; F12.90 Cannabis use, unspecified, uncomplicated; Z79.84 Long term (current) use of oral hypoglycemic drugs; Z79.82 Long term (current) use of aspirin; Z79.51 Long term (current) use of inhaled steroids; Z79.899 Other long term (current) drug therapy
CPT/HCPCS: 36415; 93005; 85379; 80053; 83735; 84484; 85025; 85610; 85730; 81001; 71275; 99284; 96374; 96375; 96361; J1100; J0696; Q9967

== ENCOUNTER 2023-04-09 15:50 | Emergency (ER) | payer MEDICARE, OTHER ==
[2023-04-09 16:35] VITALS: RESP 18
[2023-04-09] MEDS ORDERED: SODIUM CHLORIDE 0.9% 1,000 ML IV STA (16:53)
[2023-04-09] MEDS ORDERED: IBUPROFEN 600 MG TAB PO STA (16:53)
[2023-04-09] MEDS ORDERED: ONDANSETRON 4 MG/2 ML VIAL IVP STA (16:55)
[2023-04-09] MEDS ORDERED: SODIUM CHLORIDE 0.9% 500 ML 500 ML IV STA (16:59)
--- NOTE | 2023-04-09 16:59 | ED ---
Weakness HPI - General Chief complaint: Abdominal Pain Stated complaint: NVD Source: EMS, RN notes reviewed, old records reviewed Mode of arrival: EMS Limitations: no limitations - History of Present Illness Initial comments: This is a 67-year-old male to the ER for evaluation today. Patient sent today for evaluation of nausea vomiting weakness and abdominal pain. Patient admits to taking some bad food, mayonnaise last night. Significant diarrhea throughout the day with abdominal pain this afternoon. No fevers no current abdominal pain just feeling very weak MD Complaint: generalized weakness, lack of energy -: hour(s) Location: generalized Severity: moderate Severity scale (1-10): 6 Consistency: constant Improves with: none Worsens with: none Context: recent illness, history of similar, other (Patient does have history of diabetes blood sugars been mildly high) Associated Symptoms: loss of appetite, nausea/vomiting - Related Data Home Medications Medication Instructions Recorded Confirmed metFORMIN HCL [Glucophage] 1,000 mg PO BID 08/18/16 09/28/21 Aspirin EC [Ecotrin Low Dose] 81 mg PO DAILY 01/13/20 09/28/21 lisinopriL [Prinivil] 10 mg PO DAILY 04/09/20 09/28/21 Nitroglycerin Sl Tabs [Nitrostat] 0.4 mg SL Q5M PRN 09/28/21 09/28/21 Spironolactone 25 mg PO DAILY 09/28/21 09/28/21 Previous Rx's Medication Instructions Recorded Atorvastatin [Lipitor] 80 mg PO HS #30 tab 08/19/16 Metoprolol Tartrate [Lopressor] 50 mg PO BID #60 tab 08/19/16 Albuterol Sulfate [Proair Hfa] 1 - 2 puff INHALATION Q4HR PRN 09/28/21 #8.5 gm Blood Sugar Diagnostic [Glucose 1 each MC BID #60 strip 09/28/21 Test Strip] Cephalexin [Keflex] 500 mg PO Q6HR #28 cap 09/28/21 dexAMETHasone [Decadron] 6 mg PO DAILY #5 tablet 09/28/21 Allergies Allergy/AdvReac Type Severity Reaction Status Date / Time No Known Allergies Allergy Verified 09/28/21 14:14 Review of Systems ROS Statement: Those systems with pertinent positive or pertinent negative responses have been documented in the HPI. ROS Other: All systems not noted in ROS Statement are negative. Past Medical History Past Medical History: Diabetes Mellitus, Hyperlipidemia, Hypertension, Myocardial Infarction (DE) Last Myocardial Infarction Date:: 2016 History of Any Multi-Drug Resistant Organisms: None Reported Past Surgical History: Heart Catheterization With Stent Past Anesthesia/Blood Transfusion Reactions: No Reported Reaction Date of Last Stent Placement:: 2016 Past Psychological History: No Psychological Hx Reported Smoking Status: Never smoker Past Alcohol Use History: None Reported Past Drug Use History: Marijuana - Past Family History Mother Family Medical History: Diabetes Mellitus, Hypertension, Myocardial Infarction (DE) Additional Family Medical History / Comment(s): 5/7 children have diabetes Sister(s) Family Medical History: Diabetes Mellitus, Renal Disease Additional Family Medical History / Comment(s): Sis x 3. Elizabeth: Fibro. Nicole: ? DM. Jada: ?DM Brother(s) Family Medical History: Coronary Artery Disease (CAD), Diabetes Mellitus Additional Family Medical History / Comment(s): prosthesis x 2, passed due to DE years ago General Exam Limitations: no limitations Course Vital Signs 04/09/23 04/09/23 04/09/23 16:07 20:00 21:18 Temperature 97.5 F L 98.6 F 98.8 F Pulse Rate 113 H 110 H 111 H Respiratory 18 18 18 Rate Blood Pressure 119/65 125/73 105/73 O2 Sat by Pulse 99 98 97 Oximetry - Reevaluation(s) Reevaluation #1: 04/09/23 20:16 Medical records reviewed Reevaluation #2: 04/09/23 20:16 Patient symptoms are improved here in the ER after 2 L of fluid Reevaluation #3: 04/09/23 20:17 Patient informed results questions answered asking for discharge Reevaluation #4: 04/09/23 20:17 Was pt. sent in by a medical professional or institution (, PA, SPRINKLER DRIVER, urgent care, hospital, or snf...) When possible be specific @ -no Did you speak to anyone other than the patient for history (EMS, parent, family, police, friend...)? What history was obtained from this source @ -no Did you review nursing and triage notes (agree or disagree)? Why? @ -agree Are old charts reviewed (outside hosp., previous admission, EMS record, old EKG, old radiological studies, urgent care reports/EKG's, snf records)? Report findings @ -yes Differential Diagnosis (chest pain, altered mental status, abdominal pain women, abdominal pain men, vaginal bleeding, weakness, fever, dyspnea, syncope, headache, dizziness, GI bleed, back pain, seizure, CVA, palpatations, mental health, musculoskeletal)? @ -prior EKG interpreted by me (3pts min.). @ -yes X-rays interpreted by me (1pt min.). @ -yes CT interpreted by me (1pt min.). @ -no U/S interpreted by me (1pt. min.). @ -no What testing was considered but not performed or refused? (CT, X-rays, U/S, labs)? Why? @ -none What meds were considered but not given or refused? Why? @ -none Did you discuss the management of the patient with other professionals (professionals i.e. , PA, SPRINKLER DRIVER, lab, RT, psych nurse, social media editor, vp celebrity services, teacher, human resources officer, case assembler)? Give summary @ -no Was smoking cessation discussed for >3mins.? @ -no Was critical care preformed (if so, how long)? @ -no Were there social determinants of health that impacted care today? How? (Homelessness, low income, unemployed, alcoholism, drug addiction, transportation, low edu. Level, literacy, decrease access to med. care, half-way, rehab)? @ -none Was there de-escalation of care discussed even if they declined (Discuss DNR or withdrawal of care, Hospice)? DNR status @ -no What co-morbidities impacted this encounter? (DM, HTN, Smoking, COPD, CAD, Cancer, CVA, ARF, Chemo, Hep., AIDS, mental health diagnosis, sleep apnea, morbid obesity)? @ -none Was patient admitted / discharged? Hospital course, mention meds given and route, prescriptions, significant lab abnormalities, going to OR and other pertinent info. @ - 67 male to the emergency department for evaluation today. Patient presents today for evaluation of weakness dehydration nausea vomiting and diarrhea. Patient does have diabetes but does not appear to be in diabetic ketoacidosis. Not to Make. Again patient is feeling improved and feels good for discharge home Discharge Undiagnosed new problem with uncertain prognosis? @ -no Drug Therapy requiring intensive monitoring for toxicity (Heparin, Nitro, Insulin, Cardizem)? @ -no Were any procedures done? @ -no Diagnosis/symptom? @ -Nausea vomiting diarrhea dehydration and hyperglycemia Acute, or Chronic, or Acute on Chronic? @ -Acute Uncomplicated (without systemic symptoms) or Complicated (systemic symptoms)? @ -Complicated Side effects of treatment? @ -no Exacerbation, Progression, or Severe Exacerbation? @ -exacerbation Poses a threat to life or bodily function? How? (Chest pain, USA, DE, pneumonia, PE, COPD, DKA, ARF, appy, cholecystitis, CVA, Diverticulitis, Homicidal, Suicidal, threat to staff... and all critical care pts) @ -no Reevaluation #5: 04/09/23 20:17 Differential Weakness: Hypoglycemia, shock, sepsis, hyponatremia, anemia, infection, DE, ETOH, adverse medicine reaction, overdose, stroke, this is not meant to be an all-inclusive list. EKG Findings - EKG Comments: EKG Findings:: EKG is sinus tachycardia 117 IA 122 QRS 108 QTc 406 Medical Decision Making - Medical Decision Making 67 male to the emergency department for evaluation today. Patient presents today for evaluation of weakness dehydration nausea vomiting and diarrhea. Patient does have diabetes but does not appear to be in diabetic ketoacidosis. Not to Make. Again patient is feeling improved and feels good for discharge home - Lab Data Result diagrams: 04/09/23 17:27 04/09/23 17:27 Lab Results 04/09/23 04/09/23 04/09/23 Range/Units 17:27 17:27 17:27 WBC 8.6 (3.8-10.6) k/uL RBC 5.57 (4.30-5.90) m/uL Hgb 16.3 (13.0-17.5) gm/dL Hct 52.4 (39.0-53.0) % MCV 93.9 (80.0-100.0) fL MCH 29.2 (25.0-35.0) pg MCHC 31.0 (31.0-37.0) g/dL RDW 12.8 (11.5-15.5) % Plt Count 194 (150-450) k/uL MPV 7.9 Neutrophils % (Manual) 84 % Band Neuts % (Manual) 8 % Lymphocytes % (Manual) 4 % Monocytes % (Manual) 4 % Neutrophils # (Manual) 7.90 H (1.3-7.7) k/uL Lymphocytes # (Manual) 0.34 L (1.0-4.8) k/uL Monocytes # (Manual) 0.34 (0-1.0) k/uL Nucleated RBCs 0 (0-0) /100 WBC Manual Slide Review Performed RBC Morphology Normal PT (9.0-12.0) sec INR (<1.2) APTT (22.0-30.0) sec Sodium 135 L (137-145) mmol/L Potassium 5.2 H (3.5-5.1) mmol/L Chloride 103 (98-107) mmol/L Carbon Dioxide 15 L (22-30) mmol/L Anion Gap 17 mmol/L BUN 17 (9-20) mg/dL Creatinine 0.90 (0.66-1.25) mg/dL Est GFR (CKD-EPI)AfAm >90 (>60 ml/min/1.73 sqM) Est GFR (CKD-EPI)NonAf 87 (>60 ml/min/1.73 sqM) Glucose 403 H (74-99) mg/dL Plasma Lactic Acid Garett (0.7-2.0) mmol/L Calcium 9.9 (8.4-10.2) mg/dL Phosphorus 3.4 (2.5-4.5) mg/dL Magnesium 1.6 (1.6-2.3) mg/dL Total Bilirubin 0.8 (0.2-1.3) mg/dL AST 38 (17-59) U/L ALT 24 (4-49) U/L Alkaline Phosphatase 137 H (38-126) U/L Troponin I <0.012 (0.000-0.034) ng/mL NT-Pro-B Natriuret Pep 74 pg/mL Total Protein 8.7 H (6.3-8.2) g/dL Albumin 4.6 (3.5-5.0) g/dL Lipase 209 (23-300) U/L Urine Color Urine Appearance (Clear) Urine pH (5.0-8.0) Ur Specific Carrie (1.001-1.035) Urine Protein (Negative) Urine Glucose (UA) (Negative) Urine Ketones (Negative) Urine Blood (Negative) Urine Nitrite (Negative) Urine Bilirubin (Negative) Urine Urobilinogen (<2.0) mg/dL Ur Leukocyte Esterase (Negative) Urine RBC (0-5) /hpf Urine WBC (0-5) /hpf Ur Squamous Epith Cells (0-4) /hpf Hyaline Casts (0-2) /lpf Urine Mucus (None) /hpf Urine Yeast (Budding) (None) /hpf Influenza Type A (PCR) (Not Detectd) Influenza Type B (PCR) (Not Detectd) RSV (PCR) (Not Detectd) SARS-CoV-2 (PCR) (Not Detectd) 04/09/23 04/09/23 04/09/23 Range/Units 17:42 18:27 19:46 WBC (3.8-10.6) k/uL RBC (4.30-5.90) m/uL Hgb (13.0-17.5) gm/dL Hct (39.0-53.0) % MCV (80.0-100.0) fL MCH (25.0-35.0) pg MCHC (31.0-37.0) g/dL RDW (11.5-15.5) % Plt Count (150-450) k/uL MPV Neutrophils % (Manual) % Band Neuts % (Manual) % Lymphocytes % (Manual) % Monocytes % (Manual) % Neutrophils # (Manual) (1.3-7.7) k/uL Lymphocytes # (Manual) (1.0-4.8) k/uL Monocytes # (Manual) (0-1.0) k/uL Nucleated RBCs (0-0) /100 WBC Manual Slide Review RBC Morphology PT 10.0 (9.0-12.0) sec INR 0.9 (<1.2) APTT 19.7 L (22.0-30.0) sec Sodium (137-145) mmol/L Potassium (3.5-5.1) mmol/L Chloride (98-107) mmol/L Carbon Dioxide (22-30) mmol/L Anion Gap mmol/L BUN (9-20) mg/dL Creatinine (0.66-1.25) mg/dL Est GFR (CKD-EPI)AfAm (>60 ml/min/1.73 sqM) Est GFR (CKD-EPI)NonAf (>60 ml/min/1.73 sqM) Glucose (74-99) mg/dL Plasma Lactic Acid Garett 2.0 (0.7-2.0) mmol/L Calcium (8.4-10.2) mg/dL Phosphorus (2.5-4.5) mg/dL Magnesium (1.6-2.3) mg/dL Total Bilirubin (0.2-1.3) mg/dL AST (17-59) U/L ALT (4-49) U/L Alkaline Phosphatase (38-126) U/L Troponin I (0.000-0.034) ng/mL NT-Pro-B Natriuret Pep pg/mL Total Protein (6.3-8.2) g/dL Albumin (3.5-5.0) g/dL Lipase (23-300) U/L Urine Color Urine Appearance (Clear) Urine pH (5.0-8.0) Ur Specific Carrie (1.001-1.035) Urine Protein (Negative) Urine Glucose (UA) (Negative) Urine Ketones (Negative) Urine Blood (Negative) Urine Nitrite (Negative) Urine Bilirubin (Negative) Urine Urobilinogen (<2.0) mg/dL Ur Leukocyte Esterase (Negative) Urine RBC (0-5) /hpf Urine WBC (0-5) /hpf Ur Squamous Epith Cells (0-4) /hpf Hyaline Casts (0-2) /lpf Urine Mucus (None) /hpf Urine Yeast (Budding) (None) /hpf Influenza Type A (PCR) Not Detected (Not Detectd) Influenza Type B (PCR) Not Detected (Not Detectd) RSV (PCR) Not Detected (Not Detectd) SARS-CoV-2 (PCR) Not Detected (Not Detectd) 04/09/23 Range/Units 20:05 WBC (3.8-10.6) k/uL RBC (4.30-5.90) m/uL Hgb (13.0-17.5) gm/dL Hct (39.0-53.0) % MCV (80.0-100.0) fL MCH (25.0-35.0) pg MCHC (31.0-37.0) g/dL RDW (11.5-15.5) % Plt Count (150-450) k/uL MPV Neutrophils % (Manual) % Band Neuts % (Manual) % Lymphocytes % (Manual) % Monocytes % (Manual) % Neutrophils # (Manual) (1.3-7.7) k/uL Lymphocytes # (Manual) (1.0-4.8) k/uL Monocytes # (Manual) (0-1.0) k/uL Nucleated RBCs (0-0) /100 WBC Manual Slide Review RBC Morphology PT (9.0-12.0) sec INR (<1.2) APTT (22.0-30.0) sec Sodium (137-145) mmol/L Potassium (3.5-5.1) mmol/L Chloride (98-107) mmol/L Carbon Dioxide (22-30) mmol/L Anion Gap mmol/L BUN (9-20) mg/dL Creatinine (0.66-1.25) mg/dL Est GFR (CKD-EPI)AfAm (>60 ml/min/1.73 sqM) Est GFR (CKD-EPI)NonAf (>60 ml/min/1.73 sqM) Glucose (74-99) mg/dL Plasma Lactic Acid Garett (0.7-2.0) mmol/L Calcium (8.4-10.2) mg/dL Phosphorus (2.5-4.5) mg/dL Magnesium (1.6-2.3) mg/dL Total Bilirubin (0.2-1.3) mg/dL AST (17-59) U/L ALT (4-49) U/L Alkaline Phosphatase (38-126) U/L Troponin I (0.000-0.034) ng/mL NT-Pro-B Natriuret Pep pg/mL Total Protein (6.3-8.2) g/dL Albumin (3.5-5.0) g/dL Lipase (23-300) U/L Urine Color Light Yellow Urine Appearance Clear (Clear) Urine pH 5.0 (5.0-8.0) Ur Specific Carrie 1.031 (1.001-1.035) Urine Protein Trace H (Negative) Urine Glucose (UA) 4+ H (Negative) Urine Ketones 1+ H (Negative) Urine Blood Trace H (Negative) Urine Nitrite Negative (Negative) Urine Bilirubin Negative (Negative) Urine Urobilinogen <2.0 (<2.0) mg/dL Ur Leukocyte Esterase Negative (Negative) Urine RBC 4 (0-5) /hpf Urine WBC 2 (0-5) /hpf Ur Squamous Epith Cells 1 (0-4) /hpf Hyaline Casts 1 (0-2) /lpf Urine Mucus Rare H (None) /hpf Urine Yeast (Budding) Rare H (None) /hpf Influenza Type A (PCR) (Not Detectd) Influenza Type B (PCR) (Not Detectd) RSV (PCR) (Not Detectd) SARS-CoV-2 (PCR) (Not Detectd) - Radiology Data Radiology results: report reviewed (Chest x-rays negative for acute disease), image reviewed Disposition Clinical Impression: Dehydration, Weakness, Abdominal colic, Gastroenteritis Disposition: HOME SELF-CARE Condition: Fair Instructions (If sedation given, give patient instructions): Gastroenteritis (ED) Is patient prescribed a controlled substance at d/c from ED?: No Referrals: None,Stated [Primary Care Provider] - 1-2 days Time of Disposition: 20:00
[2023-04-09 17:42] LABS: ALT 24 U/L (4-49); AST 38 U/L (17-59); African American GFR (CKD) >90 (>60 ml/min/1.73 sqM); Albumin 4.6 g/dL (3.5-5.0); Alkaline Phosphatase 137 U/L (38-126); Anion Gap 17 mmol/L; Blood Urea Nitrogen 17 mg/dL (9-20); Calcium 9.9 mg/dL (8.4-10.2); Carbon Dioxide 15 mmol/L (22-30); Chloride 103 mmol/L (98-107); Glucose 403 mg/dL (74-99); Lipase 209 U/L (23-300); Magnesium 1.6 mg/dL (1.6-2.3); Non-African American GFR(CKD) 87 (>60 ml/min/1.73 sqM); Phosphorus 3.4 mg/dL (2.5-4.5); Sodium 135 mmol/L (137-145); Total Bilirubin 0.8 mg/dL (0.2-1.3); Total Protein 8.7 g/dL (6.3-8.2)
[2023-04-09 17:50] LABS: NT-Pro-B-Type Natriuretic Pept 74 pg/mL; Potassium 5.2 mmol/L (3.5-5.1)
[2023-04-09 17:58] LABS: HCT 52.4 % (39.0-53.0); HGB 16.3 gm/dL (13.0-17.5); MCH 29.2 pg (25.0-35.0); MCV 93.9 fL (80.0-100.0); Mean Platelet Volume 7.9; Platelet Count 194 k/uL (150-450); RBC 5.57 m/uL (4.30-5.90); RDW 12.8 % (11.5-15.5); WBC 8.6 k/uL (3.8-10.6)
--- NOTE | 2023-04-09 18:33 | XR ---
EXAMINATION TYPE: XR chest 1V portable DATE OF EXAM: 04/09/2023 6:14 PM CLINICAL INDICATION:Male, 67 years old with history of weak; COMPARISON: Chest radiographs from 10/26/2010 TECHNIQUE: XR chest 1V portable Frontal view of the chest. FINDINGS: Lungs/Pleura: There is no evidence of pleural effusion, focal consolidation, or pneumothorax. Pulmonary vascularity: Unremarkable. Heart/mediastinum: Cardiomediastinal silhouette is unremarkable. Musculoskeletal: No acute osseous pathology. IMPRESSION: No acute cardiopulmonary disease/process.
[2023-04-09 19:22] LABS: Band Neutrophils % 8 %; Lymphocytes # (M) 0.34 k/uL (1.0-4.8); Monocytes # (M) 0.34 k/uL (0-1.0); Neutrophils % (M) 84 %; Nucleated Red Blood Cells 0 /100 WBC (0-0); Total Cells Counted 100
[2023-04-09 19:23] LABS: RBC Morphology Normal
[2023-04-09 19:55] LABS: INR 0.9 (<1.2)
[2023-04-09 20:03] LABS: Partial Thromboplastin Time 19.7 sec (22.0-30.0)
[2023-04-09 21:12] LABS: Appearance,Urine Clear (Clear); Bilirubin,Urine Negative (Negative); Blood,Urine Trace (Negative); Budding Yeast,Urine Rare /hpf; Color,Urine Light Yellow; Glucose,Urine (UA) 4+ (Negative); Hyaline Casts,Urine 1 /lpf (0-2); Ketones,Urine 1+ (Negative); Leukocyte Esterase,Urine Negative (Negative); Mucus,Urine Rare /hpf; Nitrite,Urine Negative (Negative); Protein,Urine Trace (Negative); RBC,Urine 4 /hpf (0-5); Specific Gravity,Urine 1.031 (1.001-1.035); Squamous Epithelial Cell,Urine 1 /hpf (0-4); Urobilinogen,Urine <2.0 mg/dL (<2.0); WBC,Urine 2 /hpf (0-5)
[2023-04-09 21:20] VITALS: BP 105/73; PULSE 111; TEMP 98.8
== END 2023-04-09 21:18 | disposition home or self-care (01) ==
LOC: EC 15:50
DX: K52.9 Noninfective gastroenteritis and colitis, unspecified (principal); R53.1 Weakness; E86.0 Dehydration; R00.0 Tachycardia, unspecified; E11.9 Type 2 diabetes mellitus without complications; E78.5 Hyperlipidemia, unspecified; I10 Essential (primary) hypertension; I25.2 Old myocardial infarction; F12.90 Cannabis use, unspecified, uncomplicated; Z79.84 Long term (current) use of oral hypoglycemic drugs; Z79.82 Long term (current) use of aspirin; Z79.899 Other long term (current) drug therapy; Z20.822 Contact with and (suspected) exposure to COVID-19
CPT/HCPCS: 36415; 93005; 83880; 80053; 83605; 83690; 83735; 84100; 84484; 85025; 85610; 85730; 81001; 87636; 71045; 99285; 96374; 96361 ×3; J2405

== ENCOUNTER 2024-04-27 08:42 | Inpatient (IN) | payer MEDICARE ==
[2024-04-27] MEDS: ASPIRIN 325 MG TAB PO ONE (14:18)
[2024-04-27] MEDS: SODIUM CHLORIDE 0.9% 500 ML 500 ML IV ONE (14:21)
[2024-04-27] MEDS: HEPARIN SODIUM (1,000 UNIT/ML) 1,000 UNIT in SODIUM CHLORIDE 0.9% 1,000 ML IRRIGATION ONE (14:21)
[2024-04-27] MEDS: HEPARIN SODIUM,PORCINE (1 ML) 2,500 UNIT in SODIUM CHLORIDE 0.9% 250 ML IRRIGATION ONE (14:21)
[2024-04-27] MEDS: fentaNYL (PF) 50 MCG/ML 2 ML AMP IVP ONE ×2 (14:21→15:20)
[2024-04-27] MEDS: LIDOCAINE 1% INJ 10MG/ML (20 ML MDV) SQ ONE (14:30)
[2024-04-27] MEDS: VERAPAMIL SYRINGE (5 MG/10 ML) INTRAARTER ONE (14:34)
[2024-04-27] MEDS: HEPARIN SODIUM 1,000 UN/ML (10ML VL) IVP ONE ×2 (14:35→14:45)
[2024-04-27] MEDS: CLOPIDOGREL 75 MG TAB PO ONE (14:49)
[2024-04-27] MEDS: IOPAMIDOL-370 100ML BTL INJ ONE ×2 (15:09→15:46)
[2024-04-27] MEDS: MIDAZOLAM 2 MG/2 ML VIAL IVP ONE (15:45)
[2024-04-27] MEDS: SODIUM CHLORIDE 0.9% 1,000 ML IV ONE (15:46)
[2024-04-27] MEDS ORDERED: RX INFO: IV CONTRAST WAS GIVEN 1 EACH MISC MISCELLANE PRN ×2 (16:04→16:05)
[2024-04-27] MEDS ORDERED: ATROPINE SULFATE 0.1 MG/ML 10ML SYRINGE IV PRN (16:05)
[2024-04-27] MEDS ORDERED: NITROGLYCERIN SL TABS 0.4 MG TAB SUBLINGUAL PRN (16:05)
[2024-04-27] MEDS ORDERED: MAG HYDROX/AL HYDROX/SIMETH 30 ML CUP PO PRN (16:05)
[2024-04-27] MEDS ORDERED: ZOLPIDEM 5 MG TAB PO PRN (16:05)
[2024-04-27] MEDS ORDERED: SODIUM CHLORIDE 0.9% 1,000 ML in EMPTY BAG 1 BAG IV SCH (16:15)
--- NOTE | 2024-04-27 16:18 | P.CARDCATH ---
Date of Procedure: 04/27/24 Description of Procedure: Cardiac Catheterization: The patient is a 68-year-old male with known history of hypertension, hyperlipidemia, diabetes, multivessel stenting most recently in 2019 who stopped all his medications a while ago and presented to [facility] with symptoms of chest discomfort, abnormal cardiac enzymes consistent with non- STEMI. Recommendations were made regarding cardiac catheterization, the risks and the complications were discussed with the patient who is in full und erstanding and agreement. Procedure Description: Patient was brought to blood and plasma laboratory assistant in fasting semi-sedated state after receiving Fentanyl and Benadryl achieiving moderate conscious sedated state. Using Xylocaine Anesthesia and modified Seldinger technique, a 6-Macanese sheath was introduced in the right radial artery . Subsequently, selective coronary angiography was performed using a 5-Macanese 3.5 bend Sandee catheter. Multiple views of the coronary artery including hemiaxial views were obtained. The 6 Macanese pigtail catheter was used to cross the aortic valve and LVEDP was calculated. PCI: After removing the catheters a 6 Macanese FR 4 guiding catheter was introduced and after cannulating the right coronary ostium a 0.014 BMW J-wire was advanced across the lesion to the mid RCA. Attempt to advance a 2.5 x 12 mm trek balloon with a 6 Macanese guide liner were unsuccessful because of poor backup, at that point the guiding catheter was removed and a 6 Macanese AL 1 guiding catheter was introduced and after cannulating the right coronary ostium the 0.014 BMW J-wire was positioned in the distal PLV subsequently the 2.5 x 12 mm trek balloon was advanced and inflation in the distal and proximal lesion were done at 8 seema. Subsequently a 2.5 x 15 mm Xience leeann point stent was positioned distally and deployed at 16 seema and after removing the balloon a 3.5 x 18 mm Xience leeann point was deployed proximally at 16 seema. After removing the balloon a TouchMail eye IVUS catheter was introduced and imaging was performed. After removing the catheter a 4.0 x 12 mm NC trek balloon was advanced and 2 inflation in the proximal stent were performed at 10 seema. After removing the balloon there was an area of irregularity and haziness at the distal edge of the stent and a 4.0 x 12 mm Xience leeann point stent was deployed at 16 seema and 1 inflation at the overlap area was performed. Subsequently the wire was removed images were obtained and revealed stable successful stenting. Of note that the patient received nicardipine because of slow flow in the PLV that improved at the end of the procedure. Following that, catheter and sheath were removed. Hemostasis was obtained with deployment of vascular band . There was no immediate complication. Patient was returned to room in stable condition. Of note, the patient received a total of 7000 units of intravenous heparin as well as intra-arterial verapamil. He received an oral loading dose of clopidogrel, his ACT was monitored. He had chest discomfort and EKG changes that improved at the end of the procedure. Findings: Left main: This is a large size vessel, bifurcating into LAD and left circumflex, left main has no significant obstructive disease LAD: This is a large size vessel, reaching to the apex, giving rise to a proximal diagonal branch. The stented segment and proximal LAD is patent there is diffuse mild intimal disease of 20 to 30% throughout the LAD without high- grade stenosis. The distal vessel is small in caliber and a diffusely pattern presentation Left circumflex: This is a nondominant vessel giving rise to a large obtuse marginal branch. The stented segment in the proximal left circumflex and in the obtuse marginal branch are patent. There is intimal disease in the vessel of 20 to 30% without high-grade stenosis RCA: This is a large dominant vessel tortuous proximally has an ulceration and following that the 95% stenosis. The stented segment in the mid RCA is patent with 20 to 30% in-stent restenosis. Distally in the PLV there is an eccentric 90% stenosis, the rest of the vessel has intimal disease with no high-grade stenosis Left Ventriculogram: Not performed Hemodynamics: There was no gradient across aortic valve, LVEDP was 4-6 mmHg Conclusion: 1. Severe stenosis in the proximal RCA with an appearance of an ulceration and severe stenosis in the distal RCA 2. Patent stent in the LAD and left circumflex 3. Diffuse intimal disease in the LAD and left circumflex 4. Low LVEDP 5. Successful stenting of the proximal RCA with reduction of stenosis from 95% to less than 5% with IVUS imaging and HEMA-3 flow 6. Successful stenting of the distal RCA with reduction of stenosis from 90% to less than 5% Recommendations: The patient will continue on aspirin and clopidogrel for 1 year without any interruption in addition to aggressive coronary risks modification. Will attempt to maintain his LDL below 70 mg/dL. The importance of compliance with his medication was discussed with him and his family. The findings and the recommendations were discussed with the patient and the family and they were in full understanding and agreement. Duration of sedation is 77 minutes.
[2024-04-27] MEDS ORDERED: DEXTROSE 50% SYRINGE 50 ML IVP PRN ×2 (16:58)
[2024-04-27] MEDS: SODIUM CHLORIDE 0.9% 1,000 ML IV SCH (17:27)
[2024-04-27] MEDS: INSULIN ASPART (NovoLOG) 100 UNIT/ML VIAL SQ SCH (17:27)
[2024-04-27 18:06] LABS: African American GFR (CKD) >90 (>60 ml/min/1.73 sqM); Anion Gap 11 mmol/L; Blood Urea Nitrogen 18 mg/dL (9-20); Calcium 8.1 mg/dL (8.4-10.2); Carbon Dioxide 14 mmol/L (22-30); Chloride 112 mmol/L (98-107); Glucose 88 mg/dL (74-99); Non-African American GFR(CKD) >90 (>60 ml/min/1.73 sqM); Potassium 4.1 mmol/L (3.5-5.1); Sodium 137 mmol/L (137-145)
[2024-04-27] MEDS ORDERED: MORPHINE SULFATE 2 MG/ML SYRINGE IVP PRN ×2 (19:33)
[2024-04-27] MEDS: ATORVASTATIN 80 MG TAB PO SCH (20:00)
[2024-04-27] MEDS: METOPROLOL TARTRATE 25 MG TAB PO SCH (20:00)
[2024-04-28 08:19] LABS: Basophils % (A) 0 %; Eosinophils # (A) 0.1 k/uL (0-0.7); Eosinophils % (A) 3 %; HGB 13.5 gm/dL (13.0-17.5); Lymphocytes # (A) 0.9 k/uL (1.0-4.8); Lymphocytes % (A) 26 %; MCH 29.9 pg (25.0-35.0); MCHC 32.1 g/dL (31.0-37.0); MCV 93.3 fL (80.0-100.0); Mean Platelet Volume 8.3; Monocytes # (A) 0.5 k/uL (0-1.0); Monocytes % (A) 16 %; Neutrophils # (A) 1.8 k/uL (1.3-7.7); Neutrophils % (A) 53 %; Platelet Count 183 k/uL (150-450); RDW 13.3 % (11.5-15.5); WBC 3.4 k/uL (3.8-10.6)
[2024-04-28] MEDS: ASPIRIN 81 MG PO SCH (09:15)
[2024-04-28] MEDS: CLOPIDOGREL 75 MG TAB PO SCH (09:15)
--- NOTE | 2024-04-28 10:56 | CA ---
Transthoracic Echo Report Name: Nilson David Age: 68 Gender: M : 1955 Exam Date: 04/28/2024 08:20 Exam Location: [facility] Ht (in): 68 Wt (lb): 171 Ordering Physician: Gregg Adan MD ([id number]) Attending/Referring Phys: Manager Spa Blank Santoyo RDCS Procedure CPT: Indications: NH Cardiac Hx: 10 stents Technical Quality: Fair Contrast 1: Total Dose (mL): Contrast 2: Total Dose (mL): MEASUREMENTS (Male / Female) Normal Values 2D ECHO LV Diastolic Diameter PLAX 5.4 cm 4.2 - 5.9 / 3.9 - 5.3 cm LV Systolic Diameter PLAX 3.5 cm IVS Diastolic Thickness 1.2 cm 0.6 - 1.0 / 0.6 - 0.9 cm LVPW Diastolic Thickness 1.4 cm 0.6 - 1.0 / 0.6 - 0.9 cm LV Relative Wall Thickness 0.5 RV Internal Dim ED PLAX 3.2 cm LA Systolic Diameter LX 3.7 cm 3.0 - 4.0 / 2.7 - 3.8 cm LV Diastolic Volume MOD 4C 129.1 cm??? LV Systolic Volume MOD 4C 66.7 cm??? LV Ejection Fraction MOD 4C 48.4 % LV Cardiac Index MOD 4C 1864.4 cm???/min???m??? LV Diastolic Length 4C 8.5 cm LV Systolic Length 4C 7.2 cm LV Diastolic Volume MOD 2C 123.3 cm??? LV Systolic Volume MOD 2C 57.6 cm??? LV Ejection Fraction MOD 2C 53.3 % LV Cardiac Index MOD 2C 1964.0 cm???/min???m??? LV Diastolic Length 2C 8.8 cm LV Systolic Length 2C 7.2 cm LA Volume 69.7 cm??? 18 - 58 / 22 - 52 cm??? LA Volume Index 35.9 cm???/m??? 16 - 28 cm???/m??? M-MODE Aortic Root Diameter MM 3.5 cm AV Cusp Separation MM 1.9 cm DOPPLER AV Peak Velocity 123.0 cm/s AV Peak Gradient 6.1 mmHg MV Area PHT 4.7 cm??? Mitral E Point Velocity 74.5 cm/s Mitral A Point Velocity 71.3 cm/s Mitral E to A Ratio 1.0 MV Deceleration Time 161.7 ms FINDINGS Left Ventricle Left ventricular ejection fraction is estimated at 50 %. Mildly increased septal wall thickness. Mild concentric left ventricular hypertrophy. Mid septal hypokinesis Right Ventricle Normal right ventricular size and function. Unable to estimate the right ventricular systolic pressure. Right Atrium Normal right atrial size. No right atrial thrombus or mass seen. Left Atrium Moderately increased left atrial volume. Mildly increased left atrial area. Mitral Valve Mitral valve thickened. Mitral annular calcification. No mitral stenosis, regurgitation or prolapse. Aortic Valve Trileaflet aortic valve. Thickened aortic valve without stenosis. Tricuspid Valve Structurally normal tricuspid valve. No tricuspid regurgitation. Pulmonic Valve No pulmonic regurgitation. Structurally normal pulmonic valve. Pericardium No pericardial or pleural effusion. Aorta Normal size aortic root and proximal ascending aorta. CONCLUSIONS Preserved LV function with an ejection fraction of 50% Mild septal hypokinesis Previewed by: Dr. Filipe Johnson MD (Electronically Signed) Final Date: 28 April 2024 10:55
--- NOTE | 2024-04-28 11:16 | P.HPIM ---
History of Present Illness H&P Date: 04/27/24 Chief Complaint: Chest pain, transferred from [facility] 68-year-old male admitted to [facility] with chest pain, patient transferred to [facility] for cardiac catheter angiogram. His past medical history significant hypertension hypertensive cardiovascular disease dyslipidemia. Of note that patient stopped all the medications about 4 years ago in the emergency department at [facility] he was found to be in non-STEMI patient was treated with maximal medical therapy advised for cardiac catheter angiogram patient was transferred to [facility] for further level of care, cardiac cath angiogram revealed severe stenosis in proximal RCA, patient noted to have a patent stent in LAD and circumflex, patient underwent successful stent placement in RCA with HEMA-3 flow in proximal and distal RCA patient does have history of snoring needs to be evaluated for sleep disordered breathing and sleep apnea Review of Systems All systems: negative Past Medical History Past Medical History: Diabetes Mellitus, Hyperlipidemia, Hypertension, Myocardial Infarction (ME) Last Myocardial Infarction Date:: 2016 History of Any Multi-Drug Resistant Organisms: None Reported Past Surgical History: Heart Catheterization With Stent Past Anesthesia/Blood Transfusion Reactions: No Reported Reaction Date of Last Stent Placement:: 2017 Past Psychological History: No Psychological Hx Reported Smoking Status: Never smoker Past Alcohol Use History: None Reported Past Drug Use History: Marijuana Additional Drug Use History / Comment(s): SMOKES MARIJUANA VERY RARE (occass 1 puff every month or every other month)-INSTRUCTED TO REFRAIN FROM USE AT LEAST 24 HOURS PRIOR TO PROCEDURE - Past Family History Mother Family Medical History: Diabetes Mellitus, Hypertension, Myocardial Infarction (ME) Additional Family Medical History / Comment(s): 5/7 children have diabetes Sister(s) Family Medical History: Diabetes Mellitus, Renal Disease Additional Family Medical History / Comment(s): Sis x 3. Elizabeth: Fibro. Nicole: ? DM. Jada: ?DM Brother(s) Family Medical History: Coronary Artery Disease (CAD), Diabetes Mellitus Additional Family Medical History / Comment(s): prosthesis x 2, passed due to ME years ago Medications and Allergies Home Medications Medication Instructions Recorded Confirmed Type Aspirin EC [Ecotrin Low Dose] 81 mg PO DAILY 01/13/20 04/27/24 History Lopressor (Unknown Strength) 1 dose PO DIRECTED 04/27/24 04/27/24 History Ondansetron Odt [Zofran Odt] 4 mg PO Q12HR PRN 04/27/24 04/27/24 History Allergies Allergy/AdvReac Type Severity Reaction Status Date / Time No Known Allergies Allergy Verified 04/27/24 17:12 Physical Exam Vitals: Vital Signs Temp Pulse Resp BP Pulse Ox 04/27/24 16:55 74 16 137/72 99 04/27/24 16:40 77 16 148/68 100 04/27/24 16:25 70 16 143/75 100 04/27/24 16:18 97.5 F L 70 16 128/75 100 04/27/24 16:10 97.5 F L 71 16 128/75 100 Intake and Output 04/27/24 04/27/24 04/27/24 06:59 14:59 22:59 Intake Total 500 500 Balance 500 500 Intake: IV 500 500 Other: Voiding Method Urinal Weight 77.7 kg 77.7 kg - Constitutional General appearance: average body habitus, cooperative - EENT Eyes: EOMI, PERRLA ENT: normal oropharynx Ears: bilateral: normal - Neck Carotids: bilateral: upstroke normal Thyroid: negative: normal size - Respiratory Respiratory: bilateral: CTA - Cardiovascular Rhythm: regular Heart sounds: normal: S1, S2 - Gastrointestinal General gastrointestinal: normal bowel sounds, soft - Integumentary Integumentary: normal turgor - Neurologic Neurologic: CNII-XII intact - Musculoskeletal Musculoskeletal: gait normal, generalized weakness, strength equal bilaterally - Psychiatric Psychiatric: A&O x's 3, appropriate affect, intact judgment & insight Results CBC & Chem 7: 04/28/24 06:30 04/27/24 16:59 Chest x-ray: report reviewed, image reviewed Assessment and Plan Assessment: Non-STEMI inferior wall ME Coronary artery disease with history of stent in the LAD and circumflex Dyslipidemia hypertension hypertensive cardiovascular disease Possible COPD Sleep disordered breathing and sleep apnea Plan: Continue maximal medical therapy for coronary artery disease with high intensity statins dual antiplatelet agent Non-STEMI Diffuse coronary artery disease with stent x 2 in proximal distal RCA, history of stent in circumflex and LAD Patient will need workup for sleep disordered breathing and sleep apnea as outpatient with likely sleep study Time with Patient: Greater than 30
--- NOTE | 2024-04-28 12:46 | P.PN ---
Subjective Progress Note Date: 04/28/24 History of present illness: Patient is a pleasant 68-year-old male who was transferred from [facility] for further management of chest pain and NSTEMI. He has history of hypertension and hyperlipidemia. He underwent heart cath 04/27/2024 which revealed severe stenosis in the proximal RCA with an appearance of an ulceration and severe stenosis in the distal RCA, patent stent in the LAD and left circumflex, successful stenting of proximal RCA and successful stenting of distal RCA. Echocardiogram today shows EF 50%, mild septal hypokinesis. He did experience some chest pain during heart catheterization and stenting. 04/28/2024 He has been feeling good. He denies any further chest pain or pressure. He has been walking in his room. No shortness of breath, dizziness, palpitations. PHYSICAL EXAMINATION: This is a 68-year-old male in no apparent distress at the time of my examination. HEENT: Head is atraumatic, normocephalic. Pupils are equal, round. Sclerae anicteric. Conjunctivae are clear. Mucous membranes of the mouth are moist.There is no jugular venous distention. CHEST EXAMINATION: Lungs are clear to auscultation. No chest wall tenderness is noted on palpation or with deep breathing. HEART EXAMINATION: Heart regular rate and rhythm. S1, S2 heard. No murmurs, gal lops or rub. ABDOMEN: Soft, nontender. Bowel sounds are heard. EXTREMITIES: 2+ peripheral pulses with no evidence of peripheral edema and no calf tenderness noted. Right radial site with no swelling or drainage. NEUROLOGIC EXAMINATION: Patient is awake, alert and oriented x3. IMPRESSION AND PLAN: CAD status post multiple stents, most recent status post stent to RCA 04/27/2024 Hypertension Hyperlipidemia NSTEMI Diabetes type 2, uncontrolled, A1c 13.6% PLAN: We will continue with dual antiplatelet therapy with aspirin and Plavix for 12 months s/p PCI without any interruption. LDL goal less than 70. Needs aggressive blood sugar management. Discussed importance of medication compliance. We will monitor overnight, anticipate discharge home if remains stable tomorrow 04/29. I am dictating on behalf of Dr. David Gonzalez's history/physical and assessment/plan. Objective - Vital Signs Vital signs: Vital Signs Temp 97.7 F 04/28/24 08:00 Pulse 54 L 04/28/24 08:00 Resp 18 04/28/24 08:00 BP 100/58 04/28/24 08:00 Pulse Ox 99 04/28/24 08:00 FiO2 Intake & Output 04/27/24 04/28/24 04/28/24 18:59 06:59 18:59 Intake Total 1000 1550 200 Output Total 1200 Balance 1000 350 200 Weight 77.7 kg 78.2 kg Intake: IV 1000 10 Invasive Line 2 10 Intake, IV Titration 1000 Amount Sodium Chloride 0.9% 1, 1000 000 ml @ 75 mls/hr IV . [id number] [facility] Rx#:[id number] Oral 540 200 Output: Urine 1200 Other: Voiding Method Urinal Urinal # Voids 1 - Labs CBC & Chem 7: 04/28/24 06:30 04/27/24 16:59 Labs: Abnormal Lab Results - Last 24 Hours (Table) 04/27/24 04/27/24 04/28/24 Range/Units 16:59 16:59 06:30 WBC 3.4 L (3.8-10.6) k/uL Lymphocytes # 0.9 L (1.0-4.8) k/uL Chloride 112 H (98-107) mmol/L Carbon Dioxide 14 L (22-30) mmol/L Creatinine 0.61 L (0.66-1.25) mg/dL Hemoglobin A1c 13.6 H (<=6.0) % Calcium 8.1 L (8.4-10.2) mg/dL
[2024-04-28 13:19] VITALS: BMI 26.2
--- NOTE | 2024-04-28 23:02 | PN ---
PROGRESS NOTE SUBJECTIVE: A white male came into the hospital, was sent over to [facility], where he had some stents placed in his heart. Remains on Plavix, Lipitor, aspirin, Nitrostat, and Lopressor. OBJECTIVE: VITAL SIGNS: Blood pressure 120s over 70s, O2 of 99% on room air, pulse is 50s to 70s, temp 98.1. CARDIOVASCULAR: S1 and S2. HEMATOLOGY: Negative for Homans. PSYCH: Fair mood and affect. Status post PTCA. Shows good sign of walking. Possibly go home tomorrow. Vital signs are stable. Medication compliance. Monitor overnight. 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 Prognosis guarded. Follow up as an outpatient. MMODL / IJN: [id number] /
[2024-04-29 09:39] VITALS: RESP 16
--- NOTE | 2024-04-29 12:54 | P.PN ---
Subjective HISTORY OF PRESENT ILLNESS: Patient is a pleasant 68-year-old male who was transferred from [facility] for further management of chest pain and NSTEMI. He has history of hypertension and hyperlipidemia. He underwent heart cath 04/27/2024 which revealed severe stenosis in the proximal RCA with an appearance of an ulceration and severe stenosis in the distal RCA, patent stent in the LAD and left circumflex, successful stenting of proximal RCA and successful stenting of distal RCA. Echocardiogram today shows EF 50%, mild septal hypokinesis. He did experience some chest pain during heart catheterization and stenting. 04/28/2024 He has been feeling good. He denies any further chest pain or pressure. He has been walking in his room. No shortness of breath, dizziness, palpitations. 04/29/2024 Patient examined this morning at the bedside. Patient denies any episodes of chest pain or pressure. He denies shortness of breath. Echocardiogram completed revealing ejection fraction 50%, mild concentric LVH, mid septal hyp okinesis. PHYSICAL EXAM: VITAL SIGNS: Reviewed. GENERAL: Well-developed in no acute distress. NECK: Supple. No JVD or thyromegaly LUNGS: Respirations even and unlabored. Lungs essentially clear to auscultation bilaterally. HEART: Regular rate and rhythm. S1 and S2 heard. EXTREMITIES: Normal range of motion. No clubbing or cyanosis. Peripheral pulses intact. No lower extremity edema ASSESSMENT: Non-STEMI Status post cardiac catheterization with stenting to the RCA, 04/27/2024 History of CAD with previous multivessel stenting Hypertension Hyperlipidemia Diabetes, uncontrolled, hemoglobin A1c 13.6 PLAN: Continue dual antiplatelet therapy with aspirin and Plavix for 12 months Continue high intensity statin. LDL goal less than 70. Reinforced importance of tight glycemic control. Patient verbalized understanding. Recommend ROSANNA. However patient's blood pressures are soft with a recent reading around 100 systolic. Will reevaluate on an outpatient basis to see if patient's blood pressure will tolerate. Patient is stable for discharge home today from a cardiac standpoint Nurse practitioner note has been reviewed by physician. Signing provider agrees with the documented findings, assessment, and plan of care documented by ASSISTANT TODDLER TEACHER as a scribe. Objective - Vital Signs Vital signs: Vital Signs Temp 98.0 F 04/29/24 08:00 Pulse 90 04/29/24 08:00 Resp 14 04/29/24 08:00 BP 109/64 04/29/24 08:00 Pulse Ox 96 04/29/24 08:00 FiO2 Intake & Output 04/28/24 04/29/24 04/29/24 18:59 06:59 18:59 Intake Total 200 Balance 200 Weight 78.2 kg 76.9 kg Intake: Oral 200 Other: Voiding Method Toilet # Voids 1 - Labs CBC & Chem 7: 04/28/24 06:30 04/27/24 16:59
[2024-04-29 15:33] VITALS: BP 114/63; PULSE 74; TEMP 97.9
[2024-04-29] MEDS ORDERED: ATROPINE SULFATE 0.1 MG/ML 10ML SYRINGE IV PRN (15:46)
[2024-05-02 08:24] LABS: Glucose,Whole Blood 174 mg/dL (70-110)
[2024-05-02 11:55] LABS: Glucose,Whole Blood 99 mg/dL (70-110)
[2024-05-02 11:56] LABS: Glucose,Whole Blood 131 mg/dL (70-110)
[2024-05-02 11:56] LABS: Glucose,Whole Blood 161 mg/dL (70-110)
[2024-05-02 11:56] LABS: Glucose,Whole Blood 186 mg/dL (70-110)
[2024-05-02 11:56] LABS: Glucose,Whole Blood 183 mg/dL (70-110)
[2024-05-02 11:56] LABS: Glucose,Whole Blood 138 mg/dL (70-110)
[2024-05-02 11:56] LABS: Glucose,Whole Blood 162 mg/dL (70-110)
[2024-05-02 11:57] LABS: Glucose,Whole Blood 142 mg/dL (70-110)
== END 2024-04-29 17:57 | disposition home health service (06) | DRG 322 ==
LOC: 3SCARD 14:10
PROVIDERS: ADMIT Family Medicine; ATTEND Family Medicine
PROC: 027036Z Dilation of Coronary Artery, One Artery with Three Drug-eluting Intraluminal Devices, Percutaneous Approach (ICD-10-PCS; principal; 2024-04-27 13:58)
PROC: B241ZZ3 Ultrasonography of Multiple Coronary Arteries, Intravascular (ICD-10-PCS; 2024-04-27 13:58)
DX: I21.4 Non-ST elevation (NSTEMI) myocardial infarction (principal); I77.2 Rupture of artery; T82.855A Stenosis of coronary artery stent, initial encounter; E11.65 Type 2 diabetes mellitus with hyperglycemia; J44.9 Chronic obstructive pulmonary disease, unspecified; I11.9 Hypertensive heart disease without heart failure; I25.10 Atherosclerotic heart disease of native coronary artery without angina pectoris; G47.30 Sleep apnea, unspecified; T50.916A Underdosing of multiple unspecified drugs, medicaments and biological substances, initial encounter; E78.5 Hyperlipidemia, unspecified; Z91.128 Patient's intentional underdosing of medication regimen for other reason; Z95.5 Presence of coronary angioplasty implant and graft; I25.2 Old myocardial infarction; Z79.82 Long term (current) use of aspirin
CPT/HCPCS: 80048; 83036; 85025; 92978; 93306; 93458

== ENCOUNTER 2025-02-23 19:10 | Emergency (ER) | payer MEDICARE ==
[2025-02-23 20:02] LABS: Basophils # (A) 0.02 10*3/uL (0.00-0.10); Basophils % (A) 0.3 %; Eosinophils # (A) 0.08 10*3/uL (0.04-0.35); Eosinophils % (A) 1.1 %; HCT 43.5 % (39.6-50.0); HGB 15.0 g/dL (13.0-17.0); Lymphocytes # (A) 1.64 10*3/uL (0.90-5.00); Lymphocytes % (A) 23.0 %; MCH 30.6 pg (27.0-32.0); MCHC 34.5 g/dL (32.0-37.0); MCV 88.8 fL (80.0-97.0); Monocytes # (A) 0.60 10*3/uL (0.20-1.00); Monocytes % (A) 8.4 %; Neutrophils # (A) 4.77 10*3/uL (1.80-7.70); Neutrophils % (A) 66.9 %; Platelet Count 233 10*3/uL (140-440); RBC 4.90 10*6/uL (4.40-5.60); RDW 12.8 % (11.5-14.5); WBC 7.13 10*3/uL (4.50-10.00)
--- NOTE | 2025-02-23 20:05 | ED ---
General Adult HPI - General Source: patient, RN notes reviewed, old records reviewed Mode of arrival: ambulatory Limitations: no limitations <Mirza Khalil - Last Filed: 02/23/25 21:09> <Kelsey Farah - Last Filed: 02/23/25 23:16> - General Chief complaint: Psychiatric Symptoms Stated complaint: Psych Eval Time Seen by Provider: 02/23/25 19:20 - History of Present Illness Initial comments: 69-year-old male presents emerged department for psychiatric evaluation. Patient has been having anger and aggressive issues at home. Is frequently taken out of his . He agreed to come receive help. Does have a significant cardiac history but is not on any medications. Denies any acute complaints at this time. Denies any alcohol use or drug use. Does have a significant past medical history of CAD, diabetes, hypertension, hyperlipidemia with multiple cardiac stents. Denies chest pain, shortness of breath, Tony pain with nausea, vomiting. Has no other acute complaints. Seeking help and evaluation by psychiatry. Denies any suicidal or homicidal ideations, attempts, plans. Denies any hallucinations. Presents for further evaluation at this time. (Mirza Khalil) - Related Data Previous Rx's Medication Instructions Recorded Cephalexin [Keflex] 500 mg PO Q12HR 7 Days #14 cap 02/23/25 Allergies Allergy/AdvReac Type Severity Reaction Status Date / Time No Known Allergies Allergy Verified 02/23/25 20:31 Review of Systems ROS Other: All systems not noted in ROS Statement are negative. <Mirza Khalil - Last Filed: 02/23/25 21:09> ROS Other: All systems not noted in ROS Statement are negative. <Kelsey Farah - Last Filed: 02/23/25 23:16> ROS Statement: Those systems with pertinent positive or pertinent negative responses have been documented in the HPI. Review of Systems: CONST: Denies fever EYES: Denies blurry vision ENT: Denies nasal congestion C/V: Denies Chest pain RESP: Denies shortness of breath GI: Denies abdominal pain : Denies dysuria SKIN: Denies rash. MSK: Denies joint pain. NEURO: Denies headache (Mirza Khalil) Past Medical History Past Medical History: Diabetes Mellitus, Hyperlipidemia, Hypertension, Myocardial Infarction (PR) Last Myocardial Infarction Date:: 2016 History of Any Multi-Drug Resistant Organisms: None Reported Past Surgical History: Heart Catheterization With Stent Past Anesthesia/Blood Transfusion Reactions: No Reported Reaction Date of Last Stent Placement:: 2017 Past Psychological History: No Psychological Hx Reported Smoking Status: Never smoker Past Alcohol Use History: None Reported Past Drug Use History: Marijuana - Past Family History Mother Family Medical History: Diabetes Mellitus, Hypertension, Myocardial Infarction (PR) Additional Family Medical History / Comment(s): 5/7 children have diabetes Sister(s) Family Medical History: Diabetes Mellitus, Renal Disease Additional Family Medical History / Comment(s): Sis x 3. Elizabeth: Fibro. Nicole: ? DM. Jada: ?DM Brother(s) Family Medical History: Coronary Artery Disease (CAD), Diabetes Mellitus Additional Family Medical History / Comment(s): prosthesis x 2, passed due to PR years ago <Mirza Khalil - Last Filed: 02/23/25 21:09> General Exam Limitations: no limitations <Mirza Khalil - Last Filed: 02/23/25 21:09> - General Exam Comments Initial Comments: General: Appears in no acute distress. HEAD: Normal with no signs of head trauma. EYES: EOMI ENT: Hearing grossly intact, normal oropharynx. RESPIRATORY: Clear breath sounds bilaterally. No wheezes, rales, or rhonchi. C/V: Regular rate and rhythm. S1 and S2 auscultated, peripheral pulses 2+ and intact throughout ABD: Abd is soft, nontender, nondistended EXT: No obvious deformity. SKIN: No rashes or lesions observed on exposed skin. NEURO: Alert and oriented x 4. (Mirza Khalil) Course Vital Signs 02/23/25 02/23/25 19:19 21:15 Temperature 97.6 F Pulse Rate 86 68 Respiratory 20 18 Rate Blood Pressure 144/81 150/80 O2 Sat by Pulse 99 98 Oximetry Medical Decision Making - Lab Data Result diagrams: 02/23/25 19:39 02/23/25 19:39 <Mirza Khalil - Last Filed: 02/23/25 21:09> - Lab Data Result diagrams: 02/23/25 19:39 02/23/25 19:39 <Kelsey Farah - Last Filed: 02/23/25 23:16> - Medical Decision Making Was pt. sent in by a medical professional or institution (Dr., PA, DRAINMAN, urgent care, hospital, or prison...) When possible be specific @ -No Did you speak to anyone other than the patient for history (EMS, parent, family, police, friend...)? What history was obtained from this source @ -Patient's is at bedside and assist with past medical history including aggression. Did you review nursing and triage notes (agree or disagree)? Why? @ -I reviewed and agree with nursing and triage notes Were old charts reviewed (outside hosp., previous admission, EMS record, old EKG, old radiological studies, urgent care reports/EKG's, prison records)? Report findings @ -Today's EKG compared with EKG from September 2021 with no significant acute change. Differential Diagnosis (chest pain, altered mental status, abdominal pain women, abdominal pain men, vaginal bleeding, weakness, fever, dyspnea, syncope, headache, dizziness, GI bleed, back pain, seizure, CVA, palpatations, mental health, musculoskeletal)? @ -Differential Mental Health Depression, anxiety, bipolar, psychosis, schizophrenia, borderline personality, situational depression, adjustment disorder, behavioral disorder, brain tumor, malingering, substance abuse, encephalopathy, medication reaction, dementia, hypothyroidism, degenerative neurologic disorder, lupus.... This is not meant to be all-inclusive list EKG interpreted by me (3pts min.). @ -As above X-rays interpreted by me (1pt min.). @ -None done CT interpreted by me (1pt min.). @ -None done U/S interpreted by me (1pt. min.). @ -None done What testing was considered but not performed or refused? (CT, X-rays, U/S, labs)? Why? @ -None What meds were considered but not given or refused? Why? @ -None Did you discuss the management of the patient with other professionals (professionals i.e. MELISSA Smith, DRAINMAN, lab, RT, psych nurse, social services, cnc grinder, teacher, banking officer, case fitter)? Give summary @ -No Was smoking cessation discussed for >3mins.? @ -No Was critical care preformed (if so, how long)? @ -No Were there social determinants of health that impacted care today? How? (Homelessness, low income, unemployed, alcoholism, drug addiction, transportat ion, low edu. Level, literacy, decrease access to med. care, alf, rehab)? @ -No Was there de-escalation of care discussed even if they declined (Discuss DNR or withdrawal of care, Hospice)? DNR status @ -No What co-morbidities impacted this encounter? (DM, HTN, Smoking, COPD, CAD, Cancer, CVA, ARF, Chemo, Hep., AIDS, mental health diagnosis, sleep apnea, morbid obesity)? @ -None Was patient admitted / discharged? Hospital course, mention meds given and route, prescriptions, significant lab abnormalities, going to OR and other pertinent info. @ -Patient presents for mental health evaluation. Has been having aggression issues. Presents with his . Has no other acute complaints at this time. BAT is 0. Will obtain basic labs as well as screen EKG considering the patient's age. He was in agreement this plan. Vitals are within acceptable limits. He is cooperative. EKG shows no signs of acute ischemia. Laboratory studies returned remarkable for a UTI. Patient given IV push of Rocephin. I updated him. I will send prescription to his pharmacy for Keflex. At this time, patient is medically cleared for evaluation by psychiatry. Disposition pending psychiatric evaluation. EPS notified of the consult. At this time, patient is medically cleared for evaluation by psychiatry. Disposition pending psychiatric evaluation. EPS notified of consult. Undiagnosed new problem with uncertain prognosis? @ -No Drug Therapy requiring intensive monitoring for toxicity (Heparin, Nitro, Insulin, Cardizem)? @ -No Were any procedures done? @ -No Diagnosis/symptom? @ -UTI, encounter for psychiatric evaluation (Mirza Khalil) Patient signed out to myself pending EPS evaluation. Patient was evaluated by EPS and cleared for discharge home. (Kelsey Farah) - Lab Data Lab Results 02/23/25 02/23/25 02/23/25 Range/Units 19:39 19:39 19:39 WBC 7.13 (4.50-10.00) 10*3/uL RBC 4.90 (4.40-5.60) 10*6/uL Hgb 15.0 (13.0-17.0) g/dL Hct 43.5 (39.6-50.0) % MCV 88.8 (80.0-97.0) fL MCH 30.6 (27.0-32.0) pg MCHC 34.5 (32.0-37.0) g/dL Plt Count 233 (140-440) 10*3/uL MPV 8.9 L (9.5-12.2) fL Immature Gran % (Auto) 0.3 % Neutrophils % 66.9 % Lymphocytes % 23.0 % Monocytes % 8.4 % Eosinophils % 1.1 % Basophils % 0.3 % Immature Gran # 0.02 (0.00-0.04) 10*3/uL Neutrophils # 4.77 (1.80-7.70) 10*3/uL Lymphocytes # 1.64 (0.90-5.00) 10*3/uL Monocytes # 0.60 (0.20-1.00) 10*3/uL Eosinophils # 0.08 (0.04-0.35) 10*3/uL Basophils # 0.02 (0.00-0.10) 10*3/uL Sodium 139 (137-145) mmol/L Potassium 4.2 (3.5-5.1) mmol/L Chloride 106 (98-107) mmol/L Carbon Dioxide 20 L (22-30) mmol/L Anion Gap 13 mmol/L BUN 23 H (9-20) mg/dL Creatinine 0.73 (0.66-1.25) mg/dL Est GFR (CKD-EPI)AfAm >90 (>60 ml/min/1.73 sqM) Est GFR (CKD-EPI)NonAf >90 (>60 ml/min/1.73 sqM) Glucose 141 H (74-99) mg/dL Calcium 9.8 (8.4-10.2) mg/dL Urine Color Yellow Urine Appearance Turbid (Clear) Urine pH 5.5 (5.0-8.0) Ur Specific [place] 1.020 (1.001-1.035) Urine Protein 1+ H (Negative) Urine Glucose (UA) 3+ H (Negative) Urine Ketones Negative (Negative) Urine Blood Moderate H (Negative) Urine Nitrite Negative (Negative) Urine Bilirubin Negative (Negative) Urine Urobilinogen <2.0 (<2.0) mg/dL Ur Leukocyte Esterase Large H (Negative) Urine RBC 149 H (0-5) /hpf Urine WBC >182 H (0-5) /hpf Urine WBC Clumps Moderate H (None) /hpf Ur Squamous Epith Cells 5 H (0-4) /hpf Urine Bacteria Few H (None) /hpf Urine Mucus Occasional H (None) /hpf Urine Opiates Screen Not Detected (NotDetected) Ur Oxycodone Screen Not Detected (NotDetected) Urine Methadone Screen Not Detected (NotDetected) Ur Barbiturates Screen Not Detected (NotDetected) U Tricyclic Antidepress Not Detected (NotDetected) Ur Phencyclidine Scrn Not Detected (NotDetected) Ur Amphetamines Screen Not Detected (NotDetected) U Methamphetamines Scrn Not Detected (NotDetected) U Benzodiazepines Scrn Not Detected (NotDetected) Urine Cocaine Screen Not Detected (NotDetected) U Marijuana (THC) Screen Not Detected (NotDetected) Disposition <Mirza Khalil - Last Filed: 02/23/25 21:09> Is patient prescribed a controlled substance at d/c from ED?: No <Kelsey Farah - Last Filed: 02/23/25 23:16> Clinical Impression: UTI (urinary tract infection), Encounter for psychiatric assessment Disposition: HOME SELF-CARE Condition: Good Instructions (If sedation given, give patient instructions): Urinary Tract Infection in Older Adults (ED) Additional Instructions: Every disease is a spectrum and a small chance still exists that a serious condition could develop, for this reason, please monitor yourself closely for new, changing or worsening symptoms, return of symptoms, confusion, burning with urination, blood in your urine, [fever], wanting to harm yourself or others, inability to tolerate/keep down fluids or your medications, inability to follow up with outpatient providers as instructed and should you experience these symptoms or should you have any further concerns for your wellbeing please return to the ED or call 911 immediately. Please follow the provided safety plan that you created with psychiatric nurse. Please follow-up with your primary care provider regarding UTI to have your urine rechecked to ensure clearance of infection.within 1 week. PLEASE call your primary care physician as soon as possible to arrange / discuss plan for followup appointment. Appointment in the next 1-3 days is strongly encouraged if possible. PLEASE let us know here before you leave if there is anything further we can do to be of any assistance. Take care and feel Better! Prescriptions: Cephalexin [Keflex] 500 mg PO Q12HR 7 Days #14 cap Referrals: Carloz White MD [Primary Care Provider] - 1-2 days
[2025-02-23 20:17] LABS: African American GFR (CKD) >90 (>60 ml/min/1.73 sqM); Anion Gap 13 mmol/L; Blood Urea Nitrogen 23 mg/dL (9-20); Calcium 9.8 mg/dL (8.4-10.2); Carbon Dioxide 20 mmol/L (22-30); Chloride 106 mmol/L (98-107); Glucose 141 mg/dL (74-99); Non-African American GFR(CKD) >90 (>60 ml/min/1.73 sqM); Potassium 4.2 mmol/L (3.5-5.1); Sodium 139 mmol/L (137-145)
[2025-02-23 20:19] LABS: Bacteria,Urine Few /hpf; Bilirubin,Urine Negative (Negative); Blood,Urine Moderate (Negative); Color,Urine Yellow; Glucose,Urine (UA) 3+ (Negative); Ketones,Urine Negative (Negative); Leukocyte Esterase,Urine Large (Negative); Mucus,Urine Occasional /hpf; Nitrite,Urine Negative (Negative); PH, Urine 5.5 (5.0-8.0); Protein,Urine 1+ (Negative); RBC,Urine 149 /hpf (0-5); Specific Gravity,Urine 1.020 (1.001-1.035); Squamous Epithelial Cell,Urine 5 /hpf (0-4); Urobilinogen,Urine <2.0 mg/dL (<2.0); WBC,Urine >182 /hpf (0-5)
[2025-02-23 20:20] LABS: Benzodiazepines Screen,Urine Not Detected (NotDetected); Opiate Screen,Urine Not Detected (NotDetected); Phencyclidine Screen,Urine Not Detected (NotDetected); Tricyclic Antidepressant,Urine Not Detected (NotDetected); Urn Cannabinoid Scrn Not Detected (NotDetected)
[2025-02-23 20:21] LABS: Barbiturate Screen,Urine Not Detected (NotDetected); Oxycodone Screen, Urine Not Detected (NotDetected)
[2025-02-23] MEDS: cefTRIAXone IN SWFI 1,000 MG/10 ML SYRINGE IVP STA (21:18)
[2025-02-23 23:25] VITALS: BP 133/84; PULSE 83; RESP 17; TEMP 98.4
== END 2025-02-23 23:34 | disposition home or self-care (01) ==
LOC: EC 19:10
DX: Z00.8 Encounter for other general examination (principal); N39.0 Urinary tract infection, site not specified; F12.90 Cannabis use, unspecified, uncomplicated
CPT/HCPCS: 82075; 36415; 93005; 80048; 85025; 81001; 80306; 87086; 99285; 96374; J0696